=== PATIENT | male | born 1950 | race Caucasian/White ===

== ENCOUNTER 2018-04-13 10:15 | Emergency (ER) | payer MEDICARE, BC ==
[2018-04-13 10:35] VITALS: BP 150/64
--- NOTE | 2018-04-13 10:41 | UC ---
Abdominal Pain Male HPI - HPI Summary HPI Summary: 67 yo male presents with RUQ after eating for the past 5-6 months. He was seen by his PCP 2 weeks ago for this and PCP ordered a CT scan of chest, abd, and pelvis - which was normal per pt. He tells me that his pain began about 5-6 months ago and he hasn't wanted to eat much since due to pain after eating that will cause his stomach to ache all day long..mostly in the RUQ. He has never vomited due to this pain. He takes omeprazole daily, but notices no relief with this. He has a BM each day and is well formed without blood or dark stools. PMHx is positive for lung cancer in remission. Denies fever, chills, night sweats, SOB, chest pain, dysuria. - History of Current Complaint Chief Complaint: UCAbdominalPain Stated Complaint: ABD PAIN Time Seen by Provider: 04/13/18 10:41 Hx Obtained From: Patient Onset/Duration: Gradual Onset Severity Initially: Moderate Severity Currently: Moderate Pain Intensity: 7 Pain Scale Used: 0-10 Numeric - Allergies/Home Medications Allergies/Adverse Reactions: Allergies Allergy/AdvReac Type Severity Reaction Status Date / Time No Known Allergies Allergy Verified 04/13/18 10:36 Home Medications: Home Medications Folic Acid 1 mg PO DAILY 04/13/18 [History Confirmed 04/13/18] Omeprazole CAP* 20 mg PO DAILY 04/13/18 [History Confirmed 04/13/18] Xanax TAB* 0.5 mg PO DAILY 04/13/18 [History Confirmed 04/13/18] buPROPion TAB* [Wellbutrin TAB*] 300 mg PO DAILY 04/13/18 [History Confirmed ] PMH/Surg Hx/FS Hx/Imm Hx - Additional Past Medical History Additional PMH: Lung cancer GERD Psychological History: Anxiety - Surgical History Surgical History: Yes Surgery Procedure, Year, and Place: RIGHT LOBECTOMY, DRAINAGE OF INFECTION FROM RIGHT LUNG AND RIGHT LOWER QUADRANT - Social History Lives: With Family Alcohol Use: None Substance Use Type: None Smoking Status (MU): Former Smoker Review of Systems Constitutional: Negative Skin: Negative Respiratory: Negative Cardiovascular: Negative Gastrointestinal: Abdominal Pain Genitourinary: Negative Motor: Negative Neurovascular: Negative Musculoskeletal: Negative Neurological: Negative Psychological: Negative All Other Systems Reviewed And Are Negative: Yes Physical Exam - Summary Physical Exam Summary: GENERAL: NAD. WDWN. No pain distress. SKIN: No rashes, sores, lesions, or open wounds. NECK: Supple. Nontender. No lymphadenopathy. CHEST: CTAB. No r/r/w. No accessory muscle use. Breathing comfortably and in no distress. CV: RRR. Without m/r/g. No abdominal bruit appreciated. Pulses intact. Brisk cap refill. ABDOMEN: Soft. NTTP. Negative crow's sign. No distention or guarding. No organomegaly. No CVA tenderness. Bowel sounds present NEURO: Alert. CN II-XII grossly intact. PSYCH: Age appropriate behavior. Triage Information Reviewed: Yes Vital Signs: Initial Vital Signs Temp 97 F 04/13/18 10:31 Pulse 75 04/13/18 10:31 Resp 16 04/13/18 10:31 BP 150/64 04/13/18 10:31 Pulse Ox 99 04/13/18 10:31 Vital Signs Reviewed: Yes Abd Pain Male Course/Dx - Course Course Of Treatment: I reviewed pt's recent CT results and cholelithiasis was noted. I believe his RUQ pain after eating is related to this. Therefore I will refer him to GI for further testing and treatment. Pt was agreeable to this plan. - Differential Dx/Clinical Impression Provider Diagnoses: RUQ pain Discharge - Sign-Out/Discharge Documenting (check all that apply): Patient Departure - Discharge Plan Condition: Stable Disposition: HOME Patient Education Materials: Biliary Colic (ED), Gallstones (ED) Referrals: Israel Shay MD [Primary Care Provider] - Jose Box MD [Medical Doctor] - As Soon As Possible Additional Instructions: If you develop a fever, shortness of breath, chest pain, new or worsening symptoms - please call your PCP or go to the ED. Your blood pressure was high at todays visit. Please see your primary provider within 4 weeks for recheck and re-evaluation. 1) I suspect your right upper quadrant pain is due to your gallstones - please call Dr. Box at the number below to schedule a follow up appointment as soon as possible for further evaluation - Billing Disposition and Condition Condition: STABLE Disposition: Home Attestation Statement User Type: Provider - I was available for consult. This patient was seen by the DONIS. The patient was not presented to, seen by, or examined by me. -Terri
--- NOTE | 2018-04-13 10:47 | UC ---
Abdominal Pain Male HPI - History of Current Complaint Chief Complaint: UCAbdominalPain Stated Complaint: ABD PAIN Hx Obtained From: Patient Onset/Duration: Lasting Weeks - 2 weeks, Still Present Severity Initially: Moderate Severity Currently: Moderate Pain Intensity: 7 Pain Scale Used: 0-10 Numeric Character: Aching - Allergies/Home Medications Allergies/Adverse Reactions: Allergies Allergy/AdvReac Type Severity Reaction Status Date / Time No Known Allergies Allergy Verified 04/13/18 10:36 Home Medications: Home Medications Folic Acid 1 mg PO DAILY 04/13/18 [History Confirmed 04/13/18] Omeprazole CAP* 20 mg PO DAILY 04/13/18 [History Confirmed 04/13/18] Xanax TAB* 0.5 mg PO DAILY 04/13/18 [History Confirmed 04/13/18] buPROPion TAB* [Wellbutrin TAB*] 300 mg PO DAILY 04/13/18 [History Confirmed ] PMH/Surg Hx/FS Hx/Imm Hx Cancer History: Lung Cancer - R lung cancer - Surgical History Surgical History: Yes Surgery Procedure, Year, and Place: RIGHT LOBECTOMY, DRAINAGE OF INFECTION FROM RIGHT LUNG AND RIGHT LOWER QUADRANT - Social History Alcohol Use: None Substance Use Type: None Smoking Status (MU): Former Smoker Physical Exam Vital Signs: Initial Vital Signs Temp 97 F 04/13/18 10:31 Pulse 75 04/13/18 10:31 Resp 16 04/13/18 10:31 BP 150/64 04/13/18 10:31 Pulse Ox 99 04/13/18 10:31 Discharge - Discharge Plan Referrals: Israel Shay MD [Primary Care Provider] -
--- NOTE | 2018-04-14 10:37 | UC ---
- Progress Note Progress Note: PLS CALL PT AND ADVISE THAT HEP C TESTING IS NEGATIVE. - ANTOINETTE THOMAS MD Discharge - Sign-Out/Discharge Documenting (check all that apply): Post-Discharge Follow Up - Discharge Plan Condition: Stable Disposition: HOME Patient Education Materials: Biliary Colic (ED), Gallstones (ED) Referrals: Jose Box MD [Medical Doctor] - As Soon As Possible Israel Shay MD [Primary Care Provider] - Additional Instructions: If you develop a fever, shortness of breath, chest pain, new or worsening symptoms - please call your PCP or go to the ED. Your blood pressure was high at todays visit. Please see your primary provider within 4 weeks for recheck and re-evaluation. 1) I suspect your right upper quadrant pain is due to your gallstones - please call Dr. Box at the number below to schedule a follow up appointment as soon as possible for further evaluation - Billing Disposition and Condition Condition: STABLE Disposition: Home
== END 2018-04-13 10:55 | disposition home or self-care (01) ==
LOC: UCEAST 10:15
DX: R10.11 Right upper quadrant pain (principal); F41.9 Anxiety disorder, unspecified; K21.9 Gastro-esophageal reflux disease without esophagitis; Z79.899 Other long term (current) drug therapy; Z87.891 Personal history of nicotine dependence; N50.811 Right testicular pain; N50.89 Other specified disorders of the male genital organs; N43.2 Other hydrocele
CPT/HCPCS: 36415; 86803; 99211; G0463

== ENCOUNTER 2018-04-16 09:06 | Emergency (ER) | payer MEDICARE, BC ==
--- NOTE | 2018-04-16 10:04 | ED ---
Abdominal Pain/Male - HPI Summary HPI Summary: This is vira Valdez documenting for attending Charlotte John M.D. This patient is a 67 year old M presenting to [facility] with a chief complaint of suprapubic abd pain since the beginning of 03/2017, worse today. Two and one half weeks ago pt saw PCP Dr. Shay who did a CT chest/A/P (without contrast) (04/02/18) for PMHx lung CA (diagnosed years ago in [place], per pt) and significant unplanned weight loss. Pt went to urgent care 04/13/18 before he had received results of his CT abd/pelvis from Dr. Shay, and review of that CT by PELON Steward, showed gallstones and since pt was afebrile and his abd pain was controlled, pt was advised to follow up with Dr. Shay and surgery. Pt complains of RUQ pain at times as well, but suprapubic is the primary pain site today. Pt also complains of recent weight loss, paresthesias in arms and legs, buzzing BEARD (3 or 12/23, was 03/24), and worsening abd pain. PSHx: right lower and middle lobectomy 4 years ago, PMHx anxiety, HTN. Pt denies N/V. Pt does not have local oncologist; his oncologist is Dr. Rodrigues in [place]. 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 These testicular ultrasound results have not been able to be discussed with Dr. Shay in detail yet, as pt has not met with Dr. Shay since this was done. In room at time of evaluation, BP 97/61, 96% O2 sat, pulse 76. PSHx 10/2013 right pleural infection "1.5 quarts of infectious fluid removed, induced 2 day coma followed" per pt (admission in [place]). - History of Current Complaint Chief Complaint: EDAbdPelonin Stated Complaint: ABD PAIN Time Seen by Provider: 04/16/18 09:35 Hx Obtained From: Patient, Family/Hull Molder - pt's , Medical Records - CT abd pelvis 04/02/18 and testicular US 04/13/18 reports, and UC visit 04/13/18, Other: - Dr. Shay, who calls in, trying to reach pt, so he can schedule PET scan for pt. Onset/Duration: Gradual Onset, Lasting Weeks, Still Present, Worse Since - this am Timing: Constant, Lasting Weeks Severity Initially: Moderate Severity Currently: Moderate Pain Intensity: 5 Pain Scale Used: 0-10 Numeric Location: Discrete At: RUQ - intermittent, Suprapubic Radiates: No Character: Dull Aggravating Factor(s): Nothing Alleviating Factor(s): Nothing Associated Signs And Symptoms: Positive: Other - weight loss, paresthesia, "buzzing" BEARD. Negative: Fever, Nausea, Vomiting - Allergies/Home Medications Allergies/Adverse Reactions: Allergies Allergy/AdvReac Type Severity Reaction Status Date / Time No Known Allergies Allergy Verified 04/13/18 10:36 Home Medications: Home Medications Lisinopril TAB* [Prinivil TAB 10 MG*] 10 mg PO DAILY 04/16/18 [History Confirmed 04/16/18] Morphine Sulfate [Morphine Sulfate ER] 60 mg PO BID 04/16/18 [History Confirmed 04/16/18] Oxycodone TAB(NF) [Oxycodone HCl 10 MG] 10 mg PO TID PRN 04/16/18 [History Confirmed 04/16/18] PMH/Surg Hx/FS Hx/Imm Hx Previously Healthy: No - lung cancer Endocrine/Hematology History: Denies: Hx Diabetes Cardiovascular History: Reports: Hx Hypertension Respiratory History: Reports: Hx Lung Cancer, Other Respiratory Problems/ Disorders - s/p right lobectomy, drainage of right pleural infection History: Reports: Other Problems/Disorders - hydroceles, 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 Infectious Disease History: Yes Infectious Disease History: Denies: Traveled Outside the in Last 30 Days - Family History Known Family History: Positive: Other - Mother: breast cancer - Social History Lives: With Family Alcohol Use: None Substance Use Type: Reports: None Smoking Status (MU): Former Smoker Review of Systems Negative: Fever Cardiovascular: Negative Respiratory: Negative Positive: Abdominal Pain. Negative: Vomiting, Nausea Positive: no symptoms reported Skin: Negative Positive: Headache - "buzzing", Paresthesia - arms and legs Positive: Anxious - admits he is anxious and "can't ignore" his complex of symptoms All Other Systems Reviewed And Are Negative: Yes Physical Exam - Summary Physical Exam Summary: Appearance: Chronically ill-appearing, moderate pain distress due to BEARD and abd pain, well-nourished Skin: Warm, color reflects adequate perfusion, dry, right lower lung scar Head: Normal Head/Face inspection, atraumatic Eyes: Conjunctiva clear ENT: Normal inspection Neck: Supple, no nodes, no JVD Respiratory: decreased breath sounds throughout, no respiratory distress Cardio: RRR, No murmur, pulses normal, brisk capillary refill Abdomen: Soft, minimal suprapubic and RUQ tenderness, no guarding or tenderness , no masses. Bowel sounds: Present Rectal exam: Barbara as can marker: brown, soft stool, not impacted, stool sent for guaiac testing Musculoskeletal: Strength Intact/ROM intact, no calf tenderness, no edema. Psychological: talkative, states he is anxious Neuro: Alert, muscle tone normal, no focal deficit : Barbara as can marker, tech: firm and movable "pea-sized" mass, inferior to right testicle within scrotum, non-tender. Scrotum is not red or swollen. Triage Information Reviewed: Yes Vital Signs On Initial Exam: Initial Vitals Temp Pulse Resp BP Pulse Ox 98 F 88 18 124/70 100 04/16/18 09:13 04/16/18 09:13 04/16/18 09:13 04/16/18 09:13 04/16/18 09:13 Vital Signs Reviewed: Yes Diagnostics - Vital Signs Vital Signs Temp Pulse Resp BP Pulse Ox 04/16/18 09:13 98 F 88 18 124/70 100 - Laboratory Result Diagrams: 04/16/18 10:13 04/16/18 10:13 Lab Statement: Any lab studies that have been ordered have been reviewed, and results considered in the medical decision making process. - Radiology CXR Xray Interpretation: No Acute Changes Radiology Interpretation Completed By: Radiologist - No active cardiopulmonary disease. - CT A/P CT Interpretation Completed By: Radiologist - 1. CHOLELITHIASIS. THE INTRAHEPATIC BILIARY DILATATION NOTED ON THE PREVIOUS EXAMINATION IS NO LONGER EVIDENT. 2. ATHEROSCLEROSIS. 3. DIVERTICULOSIS. 4. MULTIPLE RENAL CYSTS. Dr. John has reviewed this report. - Ultrasound No standard instances Ultrasound Interpretation: Positive (See Comments) Ultrasound Interpretation Completed By: Radiologist - US GB: cholelithiasis without sonographic features of cholecystitis. - EKG 1019 Cardiac Rate: NL - 71 EKG Rhythm: Sinus Rhythm ST Segment: Normal Ectopy: None EKG Interpretation: nl QTc, nl AV IV CT, nl axis, not a STEMI EKG Comparison: No Significant Change - c/w 03/16/13, no acute changes Re-Evaluation - Re-Evaluation First Eval Re-Evaluation Time: 10:55 Change: Unchanged Comment: Nurse reports that pt states he took extra Lisinopril yesterday 04/15/18 because he had missed doses, BP remain 90-100 systolic. Third Eval Re-Evaluation Time: 12:45 Change: Unchanged Comment: PT left for CT. (note this is second eval, not third) Fourth Eval Re-Evaluation Time: 13:40 Change: Unchanged Comment: Note this is third eval, not second. Explained CT and GB ultrasound, and labs with pt and . Answered questions. Abdomen remains soft, nondistended, minimal diffuse tenderness. It is not a surgical abdomen. His resps are unlabored. Pt is alert and coherent. Abdominal Pain Fem Course/Dx - Course Course Of Treatment: 67 yo M with hx lung CA dx'd and treated in [place], presents to ED with acute and chronic abdominal pain. Evaluation in ED today shows: (+) CT abdomen and pelvis with oral and IV contrast: (compared with CT chest/abd/pelvis on 04/02/18 that was outpatient, without contrast). 1. CHOLELITHIASIS. THE INTRAHEPATIC BILIARY DILATATION NOTED ON THE PREVIOUS EXAMINATION. IS NO LONGER EVIDENT. 2. ATHEROSCLEROSIS. 3. DIVERTICULOSIS. 4. MULTIPLE RENAL CYSTS. (+) gallstones on US GB, without acute cholecystitis. (-) CXR. EKG nl sinus 71 BPM, nl EKG. Pt with elevated BUN, K + 5.1 (pt admits extra lisinopril past two days due to "missing some doses"), was hydrated in the ED. Care was discussed by phone with Dr. Shay, who is trying to reach pt to schedule a PET scan, based on the results of outpatient CT chest/abd/pelvis and testicular US that he had ordered. Dr. Shay will call pt later today, declines talking to pt while he is under stress in the ED. - Diagnoses Differential Diagnosis/HQI/PQRI: Bowel Obstruction, Constipation, Diverticulitis , Gall Bladder Disease, Ischemic Bowel, Pancreatitis, Prostatitis, Urinary Tract Infection, Other - metastatic cancer Provider Diagnoses: Abdominal pain, Cholelithiasis, Elevated BUN, Hyperkalemia, Scrotal mass - Provider Notifications Discussed Care Of Patient With: Israel Shay - provides background hx. He will schedule PET scan Time Discussed With Above Provider: 13:25 Instructed by Provider To: Have Pt Call For Appt. Discharge - Sign-Out/Discharge Documenting (check all that apply): Patient Departure - Discharge - Discharge Plan Condition: Stable Disposition: HOME Patient Education Materials: Gallstones (ED), Abdominal Pain (ED) Referrals: Israel Shay MD [Primary Care Provider] - 2 Days Additional Instructions: We have given you a copy of all of your labs and recent scans and ultrasounds. Bring these to Dr. Shay. At the time you are discharged the result of the test for hidden blood in your stool is still pending. Dr. Shay can check that result for you, or you can call the ER after 5pm today. We did not find any emergency condition that needs hospital admission or surgery at this time, but you do need further evaluation with the PET scan, and Dr. Shay will call you to schedule that. You do have gallstones, but your gallbladder is not inflamed at this time, so you do not need urgent surgery for that at this time. Your BUN (kidney function number) is elevated, and Dr. Shay will need to follow up on this also. Take all of your medications only as directed. Return to the emergency department for any changing or worsening symptoms. - Billing Disposition and Condition Condition: STABLE Disposition: Home
[2018-04-16] MEDS ORDERED: NS 0.9% 1000 ML* 2,000 ML IV ONE (10:07)
[2018-04-16 10:27] LABS: Urine Appearance Clear; Urine Blood Negative (Negative); Urine Color Yellow; Urine Ketones Negative (Negative); Urine Protein Negative (Negative); Urine Specific Gravity 1.019 (1.010-1.030); Urine Urobilinogen Negative (Negative)
[2018-04-16 10:27] LABS: ABS Basophils 0 10^3/ul (0-0.2); ABS Eosinophils 0 10^3/ul (0-0.6); ABS Lymphocytes 0.8 10^3/ul (1.0-4.8); ABS Monocytes 0.4 10^3/ul (0-0.8); ABS Neutrophils 7.4 10^3/ul (1.5-7.7); ABS Nucleated RBC 0 10^3/ul; Eosinophil % 0.5 % (0-6); Hematocrit 38 % (42-52); Hemoglobin 12.6 g/dl (14.0-18.0); Lymphocyte % 9.1 % (25-47); Mean Corpuscular HGB Conc 34 g/dl (31-36); Mean Corpuscular Hemoglobin 30 pg (27-31); Mean Corpuscular Volume 88 fL (80-94); Mean Platelet Volume 8.9 um3 (7.4-10.4); Nucleated Red Blood Cells % 0; Platelet Count 237 10^3/ul (150-450); Red Blood Count 4.25 10^6/ul (4.00-5.40); Red Cell Distribution Width 14 % (10.5-15); White Blood Count 8.7 10^3/ul (3.5-10.8)
[2018-04-16 10:47] LABS: INR 0.87 (0.77-1.02)
[2018-04-16 10:51] LABS: EGFR Non-African American 67.9 (>60)
--- NOTE | 2018-04-16 11:13 | RAD ---
HISTORY: gallstones on CT 04/02/18, RUQ pain,suprapubic pain COMPARISONS: CT dated April 02, 2018 TECHNIQUE: Multiple transverse and longitudinal ultrasound images were obtained of the right upper quadrant of the abdomen using grayscale and color Doppler imaging. FINDINGS: The study is limited by patient bowel gas. LIVER: The liver is normal in shape, size, contour, and echogenicity. There are no focal parenchymal masses. There is normal hepatopedal flow of the portal vein on Doppler imaging. BILIARY TREE: There is no intrahepatic or extrahepatic biliary dilatation. The common duct measures 0.5 cm. GALLBLADDER: The gallbladder is distended. Multiple shadowing echogenic foci consistent with gallstones are noted. There is no gallbladder wall thickening, pericholecystic fluid, or sonographic Pitt sign. PANCREAS: The pancreas is obscured by overlying bowel gas. RIGHT KIDNEY: There are multiple simple right renal cysts measuring up to 4.4 cm in size. There is no hydronephrosis or nephrolithiasis. The right kidney measures 13.8 x 5.2 x 6.1 cm. AORTA AND IVC: The aorta and IVC are unremarkable. FLUID: There are no pleural effusions. There is no free fluid within the hepatorenal recess. OTHER FINDINGS: None. IMPRESSION: CHOLELITHIASIS WITHOUT SONOGRAPHIC FEATURES OF ACUTE CHOLECYSTITIS.
--- NOTE | 2018-04-16 11:23 | RAD ---
HISTORY: abd pain, lung CA COMPARISONS: April 05, 2013, CT dated April 02, 2018 VIEWS: 1: frontal portable view of the chest at 11:08 AM FINDINGS: LINES AND TUBES: A right-sided chest port is noted. CARDIOMEDIASTINAL SILHOUETTE: The cardiomediastinal silhouette is normal for portable technique. PLEURA: There is elevation of the right hemidiaphragm. LUNG PARENCHYMA: The lungs are clear. ABDOMEN: The upper abdomen is clear. There is no subphrenic gas. BONES AND SOFT TISSUES: There is postsurgical change to the right hemithorax. IMPRESSION: NO ACTIVE CARDIOPULMONARY DISEASE.
[2018-04-16] MEDS ORDERED: Iohexol 300* (CONTRAST) 10 ML SDV IV ONE (11:28)
--- NOTE | 2018-04-16 13:11 | RAD ---
CLINICAL HISTORY: suprapubic and RUQ pain, hx gallstones COMPARISON: April 02, 2018, ultrasound dated April 16, 2018 TECHNIQUE: Multiple contiguous axial CT scans were obtained of the abdomen and pelvis after the administration of intravenous contrast. Coronal and sagittal multiplanar reformations are submitted for review. Oral contrast was administered. Delayed images were obtained through the abdomen. FINDINGS: LUNG BASES: The lung bases are clear. LIVER: The liver is normal in shape, size, contour, and attenuation. BILE DUCTS: There is no intrahepatic or extrahepatic biliary dilatation. GALLBLADDER: Small gallstones are noted. There is no pericholecystic inflammatory change. PANCREAS: The pancreas is normal, without mass or ductal dilatation. SPLEEN: Normal in size and appearance. UPPER GI TRACT: Evaluation of the gastrointestinal tract is limited by incomplete gastric distention. The upper GI tract is unremarkable. SMALL BOWEL AND MESENTERY: The small bowel is normal in contour, course, and caliber. There is no obstruction or dilatation. COLON: There are multiple diverticula of the descending and sigmoid colon. There is no pericolonic inflammatory change. ADRENALS: Normal bilaterally. KIDNEYS: Again noted are renal cysts bilaterally. These are stable in the previous examination. BLADDER: The bladder is smooth in contour. PELVIC ORGANS: The prostate is mildly enlarged. The seminal vesicles are symmetric. AORTA: There is calcific atherosclerotic disease of the abdominal aorta and its branches, without aneurysmal dilatation IVC: Unremarkable LYMPH NODES: There is no lymphadenopathy by size criteria. ABDOMINAL WALL: There is no evidence for abdominal wall hernia. BONES AND SOFT TISSUES: There are mild diffuse degenerative changes. OTHER: None IMPRESSION: 1. CHOLELITHIASIS. THE INTRAHEPATIC BILIARY DILATATION NOTED ON THE PREVIOUS EXAMINATION IS NO LONGER EVIDENT. 2. ATHEROSCLEROSIS. 3. DIVERTICULOSIS. 4. MULTIPLE RENAL CYSTS.
[2018-04-16 13:40] VITALS: BP 119/65
== END 2018-04-16 13:48 | disposition home or self-care (01) ==
LOC: ED 09:06
DX: K80.20 Calculus of gallbladder without cholecystitis without obstruction (principal); E87.5 Hyperkalemia; R79.89 Other specified abnormal findings of blood chemistry; N28.1 Cyst of kidney, acquired; I70.0 Atherosclerosis of aorta; K57.30 Diverticulosis of large intestine without perforation or abscess without bleeding; I10 Essential (primary) hypertension; F41.9 Anxiety disorder, unspecified; Z79.899 Other long term (current) drug therapy; Z87.438 Personal history of other diseases of male genital organs; Z85.118 Personal history of other malignant neoplasm of bronchus and lung; Z90.2 Acquired absence of lung [part of]; Z87.891 Personal history of nicotine dependence
CPT/HCPCS: 36415; 71045; 74177; 76705; 80053; 81003; 82140; 82150; 82272; 82550; 83605; 83690; 83735; 83880; 84484; 85025; 85610; 85730; 86140; 93005; 96360; 96361; 99283; Q9967

== ENCOUNTER 2018-04-18 11:39 | Emergency (ER) | payer MEDICARE, BC ==
--- NOTE | 2018-04-18 11:53 | ED ---
Abdominal Pain/Male - HPI Summary HPI Summary: A 67 y/o M presents to ED with c/o acute on chronic, diffuse abd pain onset one month ago and and worsening. Associated sx: diarrhea onset this AM but constipated prior to that for three days; BEARD for few weeks that "buzzes." Known dx: gallstones, enlarged nodule in lung. Eats some solid foods, and 6-pack Boost daily. Lost 20 lbs in November, has been fluctuating ever since. Pt had CT with contrast three days ago, says he is scheduled for a PET scan. PMHx: Lung CA with surgery. Former smoker, vapes now. This is scribe, Alondra Dior, documenting for attending Dr. Nura Hernandez MD. - History of Current Complaint Stated Complaint: ABD PAIN,TINGLING ALL OVER,HEADACHE Time Seen by Provider: 04/18/18 11:42 Hx Obtained From: Patient, Medical Records Onset/Duration: Lasting Weeks, Still Present Timing: Constant Severity Currently: Mild Pain Intensity: 3 Pain Scale Used: 0-10 Numeric Associated Signs And Symptoms: Positive: Diarrhea - this AM, Other - constipation 3 days; BEARD - Allergies/Home Medications Allergies/Adverse Reactions: Allergies Allergy/AdvReac Type Severity Reaction Status Date / Time No Known Allergies Allergy Verified 04/13/18 10:36 PMH/Surg Hx/FS Hx/Imm Hx Previously Healthy: No Endocrine/Hematology History: Denies: Hx Diabetes Cardiovascular History: Reports: Hx Hypertension, Other Cardiovascular Problems/ Disorders - HTN Respiratory History: Reports: Hx Chronic Obstructive Pulmonary Disease (COPD), Hx Lung Cancer, Other Respiratory Problems/Disorders - PT STATES HX OF GROWTHS IN RIGHT LUNG History: Reports: Other Problems/Disorders - hydrocoel right testicle Denies: Hx Renal Disease Sensory History: Denies: Hx Legally Blind, Hx Deafness Opthamlomology History: Denies: Hx Legally Blind - Cancer History Cancer Type, Location and Year: RIGHT LUNG CANCER - Surgical History Surgery Procedure, Year, and Place: RIGHT LOBECTOMY, DRAINAGE OF INFECTION FROM RIGHT LUNG AND RIGHT LOWER QUADRANT Infectious Disease History: No Infectious Disease History: Denies: Traveled Outside the [place] in Last 30 Days - Family History Known Family History: Positive: Other - Mother: breast cancer - Social History Lives: With Family Alcohol Use: None Alcohol Amount: 4 years sober Substance Use Type: Reports: None Hx Tobacco Use: Yes Smoking Status (MU): Former Smoker Review of Systems Negative: Fever Positive: Abdominal Pain, Diarrhea, Other - constipation Positive: Headache All Other Systems Reviewed And Are Negative: Yes Physical Exam - Summary Physical Exam Summary: Appearance: Well appearing, no pain distress Skin: warm, dry, reflects adequate perfusion Head/face: normal Eyes: EOMI, ROSENDO ENT: normal, moist mucous membranes Neck: supple, non-tender Respiratory: CTA, breath sounds present Cardiovascular: RRR, pulses symmetrical Abdomen: non-tender, soft Bowel Sounds: present Musculoskeletal: normal, strength/ROM intact Neuro: normal, sensory motor intact, A&Ox3 Triage Information Reviewed: Yes Vital Signs On Initial Exam: Initial Vitals Temp Pulse Resp BP Pulse Ox 99.3 F 78 16 175/87 97 04/18/18 11:41 04/18/18 11:41 04/18/18 11:41 04/18/18 11:41 04/18/18 11:41 Vital Signs Reviewed: Yes Diagnostics - Vital Signs Vital Signs Temp Pulse Resp BP Pulse Ox 04/18/18 11:41 99.3 F 78 16 175/87 97 - Laboratory Result Diagrams: 04/18/18 12:07 04/18/18 12:07 Lab Statement: Any lab studies that have been ordered have been reviewed, and results considered in the medical decision making process. Re-Evaluation - Re-Evaluation 1 Re-Evaluation Time: 13:31 Change: Improved Comment: Discussing lab results with pt. Plan to D/C. Pt voiced understanding. Abdominal Pain Fem Course/Dx - Course Course Of Treatment: Reviewed past CT and labs, both are which are nml. She is well-known to the ER having just had a CT scan here. He is continuing to have discomfort but his abdomen is soft, nontender with normal bowel sounds. I reviewed his CT scan which shows no constipation despite his chronic opiate use. I suggested a possible outpatient HIDA scan and he does have an outpatient PET scan pending given his cancer history. He also will do a lamination diets and will follow up closely with his primary care physician. - Diagnoses Differential Diagnosis/HQI/PQRI: Other - Functional gallbladder issue, food intolerances, food allergy, poor motility. Provider Diagnoses: Chronic abdominal pain Discharge - Sign-Out/Discharge Documenting (check all that apply): Patient Departure - D/C - Discharge Plan Condition: Improved Disposition: HOME Prescriptions: Metoclopramide HCl 10 mg PO TID PRN #40 tablet PRN Reason: nausea/abdominal pain Pantoprazole Sodium [Protonix] 40 mg PO DAILY #30 granpkt. Sucralfate [Carafate] 1 gm PO TID #60 tablet Patient Education Materials: Chronic Abdominal Pain (ED) Referrals: Israel Shay MD [Primary Care Provider] - Additional Instructions: Follow-up with your doctor on Friday. Have the PET scan as previously ordered. Your doctor may also consider a HIDA scan. Return if worse, unable to keep down food or drink, new symptoms or other concerns. - Billing Disposition and Condition Condition: IMPROVED Disposition: Home
[2018-04-18] MEDS ORDERED: Ondansetron INJ* 2 MG/ML VIAL IV ONE (11:58)
[2018-04-18] MEDS ORDERED: diPHENhydraMINE IV* 50 MG/ML 1 ml VIAL (BENADRYL) IV ONE (11:58)
[2018-04-18] MEDS ORDERED: NS 0.9% 1000 ML* 1,000 ML IV ONE (11:58)
[2018-04-18] MEDS ORDERED: Metoclopramide IV* 5 MG/ML 2 ML VIAL IV ONE (11:58)
[2018-04-18 12:16] LABS: ABS Basophils 0.1 10^3/ul (0-0.2); ABS Eosinophils 0.1 10^3/ul (0-0.6); ABS Lymphocytes 1.4 10^3/ul (1.0-4.8); ABS Monocytes 0.5 10^3/ul (0-0.8); ABS Neutrophils 4.7 10^3/ul (1.5-7.7); ABS Nucleated RBC 0 10^3/ul; Eosinophil % 2.1 % (0-6); Hematocrit 36 % (42-52); Hemoglobin 12.2 g/dl (14.0-18.0); Lymphocyte % 20.8 % (25-47); Mean Corpuscular HGB Conc 34 g/dl (31-36); Mean Corpuscular Hemoglobin 30 pg (27-31); Mean Corpuscular Volume 88 fL (80-94); Mean Platelet Volume 8.7 um3 (7.4-10.4); Nucleated Red Blood Cells % 0; Platelet Count 248 10^3/ul (150-450); Red Blood Count 4.12 10^6/ul (4.00-5.40); Red Cell Distribution Width 14 % (10.5-15); White Blood Count 6.9 10^3/ul (3.5-10.8)
[2018-04-18 12:30] LABS: EGFR Non-African American 70.1 (>60)
[2018-04-18 14:02] VITALS: BP 121/71
== END 2018-04-18 13:56 | disposition home or self-care (01) ==
LOC: ED 11:39
DX: R10.9 Unspecified abdominal pain (principal); G89.29 Other chronic pain; R19.7 Diarrhea, unspecified; Z87.891 Personal history of nicotine dependence; K59.00 Constipation, unspecified; R51 Headache
CPT/HCPCS: 36415; 80053; 83605; 83690; 84145; 84443; 85025; 86140; 99283; J1200; J2405; J2765

== ENCOUNTER 2019-10-23 15:28 | Emergency (ER) | payer MEDICARE, BC ==
[2019-10-23] MEDS ORDERED: NS 0.9% 1000 ML** 1,000 ML IV ONE ×2 (15:58→17:17)
[2019-10-23 16:41] LABS: ABS Eosinophils 0.1 10^3/ul (0-0.6); ABS Lymphocytes 1.1 10^3/ul (1.0-4.8); ABS Monocytes 1.1 10^3/ul (0-0.8); ABS Neutrophils 11.1 10^3/ul (1.5-7.7); Eosinophil % 0.4 %; Hematocrit 39 % (42-52); Hemoglobin 13.3 g/dL (14.0-18.0); Lymphocyte % 7.9 %; Mean Corpuscular HGB Conc 34 g/dL (31-36); Mean Corpuscular Hemoglobin 30 pg (27-31); Mean Corpuscular Volume 86 fL (80-94); Mean Platelet Volume 8.4 fL (7.4-10.4); Platelet Count 275 10^3/uL (150-450); Red Cell Distribution Width 15 % (10-15); White Blood Count 13.4 10^3/uL (3.5-10.8)
[2019-10-23 16:54] LABS: INR 0.92 (0.82-1.09)
[2019-10-23 17:05] LABS: ALT 88 U/L (7-52); AST 66 U/L (13-39); Albumin/Globulin Ratio 1.4 (1-3); Alkaline Phosphatase 59 U/L (34-104); Anion Gap 6 mmol/L (2-11); BUN/Creatinine Ratio 34.5 (8-20); Blood Urea Nitrogen 49 mg/dL (6-24); CO2 Carbon Dioxide 30 mmol/L (22-32); Calcium 10.1 mg/dL (8.6-10.3); Chloride 106 mmol/L (101-111); EGFR African American 60.4 (>60); EGFR Non-African American 49.9 (>60); Globulin 2.9 g/dL (2-4); Glucose 96 mg/dL (70-100); Magnesium 2.4 mg/dL (1.9-2.7); Potassium 4.2 mmol/L (3.5-5.0); Sodium 142 mmol/L (135-145); Total Protein 6.9 g/dL (6.4-8.9)
[2019-10-23 17:22] LABS: Alcohol < 10 mg/dL (<10)
--- NOTE | 2019-10-23 17:30 | ED ---
Adult Trauma - HPI Summary HPI Summary: This patient is a 68-year-old male history of alcohol abuse and alcoholism as well as newly diagnosed lung cancer presenting to the ED after a fall 2 days ago. He is currently living with his sister. Sister is at bedside. Sister states she was not present during this time and typically will keep a close eye on the patient due to his drinking. He recently started drinking again after over 5 months sobriety. Prior to that he had several years of sobriety. He is unsure how much he drank on the day of his fall. He states he recalls very little of that day but does recall falling down a few steps, landing on his left hip and rib area. He denies any pain to the right side and is only endorsing pain to the left ribs. Symptoms are worse with taking deep breaths, better with rest. He has been using Ambien at night to help him sleep due to the pain. He states he only has pain when taking a deep breath due to the pain , however continues to feel like he is able to take a deep breath of air. He denies any hemoptysis, hematemesis, melena, urinary symptoms or gross hematuria. He denies any flank pain bilaterally. He denies any pain to the posterior cervical, thoracic and lumbar spine. Denies any headache, but unsure if he hit his head. Unsure if he had any positive LOC. She has not been sick recently, however has been stating he is unsteady on his feet d/t his pain. Denies any dizziness. Denies visual changes. Patient states he will smoke cigarettes only when he drinks. Denies any drug use. He states he has not drank in the past day and a half since his fall. He does recall able to stand up after the fall and was able to place himself on the couch. He has remained ambulatory over the past 2 days. - History of Current Complaint Chief Complaint: EDFall Stated Complaint: FALL PER PT Time Seen by Provider: 10/23/19 15:44 Hx Obtained From: Patient, Family/Food Analyst Ambulatory at the Scene: Yes Loss of Consciousness: unsure Force: Medium Onset/Duration: Started Days Ago, Traumatic Onset of Pain: Immediate Onset Severity: Moderate Current Severity: Moderate Pain Intensity: 3 Pain Scale Used: 0-10 Numeric Location: Head, Chest, Abdomen/Pelvis Character: Aching Aggravating Factor(s): Movement, Deep Breaths, Palpation, Cough Alleviating Factor(s): Rest, Shallowing Breathing Associated Signs & Symptoms: Positive: Loss of Consciousness - Allergy/Home Medications Allergies/Adverse Reactions: Allergies Allergy/AdvReac Type Severity Reaction Status Date / Time No Known Allergies Allergy Verified 10/23/19 15:34 PMH/Surg Hx/FS Hx/Imm Hx Previously Healthy: Yes Endocrine/Hematology History: Denies: Hx Diabetes Cardiovascular History: Reports: Hx Hypertension, Other Cardiovascular Problems/ Disorders - HTN Respiratory History: Reports: Hx Chronic Obstructive Pulmonary Disease (COPD), Hx Lung Cancer, Other Respiratory Problems/Disorders - PT STATES HX OF GROWTHS IN RIGHT LUNG History: Reports: Other Problems/Disorders - hydrocoel right testicle Denies: Hx Renal Disease Sensory History: Denies: Hx Legally Blind, Hx Deafness Opthamlomology History: Denies: Hx Legally Blind - Cancer History Cancer Type, Location and Year: RIGHT LUNG CANCER - Surgical History Surgery Procedure, Year, and Place: RIGHT LOBECTOMY, DRAINAGE OF INFECTION FROM RIGHT LUNG AND RIGHT LOWER QUADRANT - Immunization History Hx Pertussis Vaccination: No Immunizations Up to Date: Yes Infectious Disease History: No Infectious Disease History: Denies: Traveled Outside the [place] in Last 30 Days - Family History Known Family History: Positive: Other - Mother: breast cancer - Social History Occupation: Unemployed Lives: With Family Alcohol Use: Rare Alcohol Amount: hx ETOH, "fell off wagon on " Hx Substance Use: No Substance Use Type: Reports: None Hx Tobacco Use: Yes Smoking Status (MU): Former Smoker Review of Systems Negative: Fever, Chills, Fatigue, Skin Diaphoresis Negative: Palpitations, Chest Pain Negative: Shortness Of Breath, Cough Positive: Abdominal Pain. Negative: Vomiting, Diarrhea, Nausea Positive: see HPI, flank pain Positive: Arthralgia - left rib pain Positive: Bruising - left flank/left mid back pain Neurological: Negative All Other Systems Reviewed And Are Negative: Yes Physical Exam - Summary Physical Exam Summary: GENERAL: Pt appears in NAD. SKIN: Warm and well perfused. Discoloration and ecchymosis to the posterior lower flank without ecchymosis otherwise throughout. HEAD: Atraumatic, normocephalic without edema, discoloration or evidence of trauma. Facial bones without deformities or tenderness. EYES: PERRL. Scleral icterus present. Conjunctival injection. Extraocular muscles intact without nystagmus or diplopia. No proptosis or enophthalmos. EARS: Normal appearing pinnae. No hemotympanum. NOSE: No discharge, tenderness, laxity. No nasal septal hematoma. MOUTH: No malocclusion or trismus. Moist mucus membranes without blood. Posterior pharynx without erythema or exudate. NECK: Trachea midline. No discolorations or edema. CV: Regular rate and rhythm, Normal s1 and s2. No murmurs, rubs, or gallops. PV: Radial pulses 2+ bilaterally and symmetric. Dorsalis pedis pulses 2+ bilaterally and symmetric. 2+ capillary refill. No extremity edema. CHEST: No abrasions or ecchymosis. Chest symmetric with respirations. No chest wall tenderness. No crepitus. No step offs. Lungs are clear to auscultation bilaterally. No rales, rhonchi, wheezing or stridor. Pain over the L rib cage throughout. ABDOMEN: No ecchymosis or abrasions. Soft, nondistended, nontender. Bowel tones normoactive. No masses or organomegaly. No pain to the LUQ to the splenic region. BACK: Spine without bony tenderness, no step offs. PELVIC: Pelvis stable, nontender to lateral compression and palpation of symphysis pubis. Pt able to ambulate. MSK: No gross deformities or discolorations or lesions. Tolerates full range of motion of extremities without tenderness. NEURO: Alert and oriented to person, place, and time. GCS 15. CN II-XII intact. Sensation grossly intact. Strength 5/5 in bilateral UE and LE. Triage Information Reviewed: Yes Vital Signs On Initial Exam: Initial Vitals Temp Pulse Resp BP Pulse Ox 98.6 F 99 19 103/69 97 10/23/19 15:30 10/23/19 15:30 10/23/19 15:30 10/23/19 15:30 10/23/19 15:30 Vital Signs Reviewed: Yes Appearance: Positive: Well-Appearing, No Pain Distress, Well-Nourished Skin: Positive: Other - ecchymosis to the posterior L side/flank area Head/Face: Positive: Normal Head/Face Inspection Eyes: Positive: EOMI, ROSENDO, Other: - scleral icterus Neck: Positive: Supple, No Lymphadenopathy Respiratory/Lung Sounds: Positive: Clear to Auscultation, Breath Sounds Present Cardiovascular: Positive: RRR, Pulses are Symmetrical in both Upper and Lower Extremities Abdomen Description: Positive: Other: - nontender throughout the upper and lower quadrants Musculoskeletal: Positive: Normal, Strength/ROM Intact Neurological: Positive: Speech Normal Psychiatric: Positive: Affect/Mood Appropriate, Patient Uncooperative for Exam AVPU Assessment: Alert Procedures - Sedation Patient Received Moderate/Deep Sedation with Procedure: No Diagnostics - Vital Signs Vital Signs Temp Pulse Resp BP Pulse Ox 10/23/19 16:41 89 96/61 95 10/23/19 16:11 90 115/69 96 10/23/19 16:00 93 98 10/23/19 15:43 99 125/97 87 10/23/19 15:30 98.6 F 99 19 103/69 97 - Laboratory Lab Results: Lab Results 10/23/19 10/23/19 10/23/19 Range/Units 16:32 16:32 16:32 WBC 13.4 H (3.5-10.8) 10^3/uL RBC 4.50 (4.18-5.48) 10^6 /uL Hgb 13.3 L (14.0-18.0) g/dL Hct 39 L (42-52) % MCV 86 (80-94) fL MCH 30 (27-31) pg MCHC 34 (31-36) g/dL RDW 15 (10-15) % Plt Count 275 (150-450) 10^3/uL MPV 8.4 (7.4-10.4) fL Neut % (Auto) 82.8 % Lymph % (Auto) 7.9 % [place] % (Auto) 8.5 % Eos % (Auto) 0.4 % Baso % (Auto) 0.4 % Absolute Neuts (auto) 11.1 H (1.5-7.7) 10^3/ul Absolute Lymphs (auto) 1.1 (1.0-4.8) 10^3/ul Absolute Monos (auto) 1.1 H (0-0.8) 10^3/ul Absolute Eos (auto) 0.1 (0-0.6) 10^3/ul Absolute Basos (auto) 0.0 (0-0.2) 10^3/ul Absolute Nucleated RBC 0.0 10^3/ul Nucleated RBC % 0.0 INR (Anticoag Therapy) (0.82-1.09) Sodium 142 (135-145) mmol/L Potassium 4.2 (3.5-5.0) mmol/L Chloride 106 (101-111) mmol/L Carbon Dioxide 30 (22-32) mmol/L Anion Gap 6 (2-11) mmol/L BUN 49 H (6-24) mg/dL Creatinine 1.42 H (0.67-1.17) mg/dL Est GFR ( Amer) 60.4 (>60) Est GFR (Non-Af Amer) 49.9 (>60) BUN/Creatinine Ratio 34.5 H (8-20) Glucose 96 (70-100) mg/dL Lactic Acid 1.2 (0.5-2.0) mmol/L Calcium 10.1 (8.6-10.3) mg/dL Magnesium 2.4 (1.9-2.7) mg/dL Total Bilirubin 0.70 (0.2-1.0) mg/dL AST 66 H (13-39) U/L ALT 88 H (7-52) U/L Alkaline Phosphatase 59 (34-104) U/L Total Protein 6.9 (6.4-8.9) g/dL Albumin 4.0 (3.2-5.2) g/dL Globulin 2.9 (2-4) g/dL Albumin/Globulin Ratio 1.4 (1-3) Serum Alcohol < 10 (<10) mg/dL 10/23/19 Range/Units 16:32 WBC (3.5-10.8) 10^3/uL RBC (4.18-5.48) 10^6 /uL Hgb (14.0-18.0) g/dL Hct (42-52) % MCV (80-94) fL MCH (27-31) pg MCHC (31-36) g/dL RDW (10-15) % Plt Count (150-450) 10^3/uL MPV (7.4-10.4) fL Neut % (Auto) % Lymph % (Auto) % [place] % (Auto) % Eos % (Auto) % Baso % (Auto) % Absolute Neuts (auto) (1.5-7.7) 10^3/ul Absolute Lymphs (auto) (1.0-4.8) 10^3/ul Absolute Monos (auto) (0-0.8) 10^3/ul Absolute Eos (auto) (0-0.6) 10^3/ul Absolute Basos (auto) (0-0.2) 10^3/ul Absolute Nucleated RBC 10^3/ul Nucleated RBC % INR (Anticoag Therapy) 0.92 (0.82-1.09) Sodium (135-145) mmol/L Potassium (3.5-5.0) mmol/L Chloride (101-111) mmol/L Carbon Dioxide (22-32) mmol/L Anion Gap (2-11) mmol/L BUN (6-24) mg/dL Creatinine (0.67-1.17) mg/dL Est GFR ( Amer) (>60) Est GFR (Non-Af Amer) (>60) BUN/Creatinine Ratio (8-20) Glucose (70-100) mg/dL Lactic Acid (0.5-2.0) mmol/L Calcium (8.6-10.3) mg/dL Magnesium (1.9-2.7) mg/dL Total Bilirubin (0.2-1.0) mg/dL AST (13-39) U/L ALT (7-52) U/L Alkaline Phosphatase (34-104) U/L Total Protein (6.4-8.9) g/dL Albumin (3.2-5.2) g/dL Globulin (2-4) g/dL Albumin/Globulin Ratio (1-3) Serum Alcohol (<10) mg/dL Result Diagrams: 10/23/19 16:32 10/23/19 16:32 Lab Statement: Any lab studies that have been ordered have been reviewed, and results considered in the medical decision making process. Adult Trauma Course/Dx - Course Course Of Treatment: This patient is evaluated for trauma. Patient is neurologically intact. Alert and oriented 3. Ecchymosis noted to the posterior flank area. No tenderness throughout the abdomen. Endorses severe pain to the L rib cage without pain to palpation or pressure to the chest wall. Lungs CTA. RRR. VS stable. CT brain, cervical, thoracic and lumbar spine. CT chest/abdomen/pelvis obtained. These are pending. Patient will be signed out to [facility] pending trauma workup. Pt declining any pain medications. He is given 2L fluids. - Diagnoses Differential Diagnosis/HQI/PQRI: Positive: Abrasion(s), Contusion(s), Fracture, Laceration(s) Provider Diagnoses: Trauma, Fall Images - Images Full Body (No Head): 1 - ecchymosis with small abrasion Discharge ED - Sign-Out/Discharge Documenting (check all that apply): Sign-Out Patient Signing out patient TO: Telma Marin - Discharge Plan Condition: Fair Referrals: Israel Shay MD [Primary Care Provider] - - Billing Disposition and Condition Condition: FAIR
[2019-10-23] MEDS ORDERED: Iodixanol 320 (CONTRAST) 100 ML SDV IV ONE (18:00)
[2019-10-23] MEDS ORDERED: HYDROcodone/ACETAMIN 5-325 MG* 1 TAB PO ONE (19:23)
--- NOTE | 2019-10-23 19:24 | ED ---
Course/Dx - Course Course Of Treatment: This patient is evaluated for trauma. Patient is neurologically intact. Alert and oriented 3. Ecchymosis noted to the posterior flank area. No tenderness throughout the abdomen. Endorses severe pain to the L rib cage without pain to palpation or pressure to the chest wall. Lungs CTA. RRR. VS stable. He is given 2L fluids. CT brain normal. CT neck , thoracic and lumbar no fracture. CT chest/abd shows ribs fracture 10-11. gave short course of pain medication. patient understand and agrees with plan. - Diagnoses Provider Diagnoses: Trauma, Fall, Rib fracture Discharge ED - Sign-Out/Discharge Documenting (check all that apply): Patient Departure, Receiving Sign-Out Receiving patient FROM: Veronica Miller - Discharge Plan Condition: Fair Disposition: HOME Prescriptions: HYDROcodone/ACETAMIN 5-325 MG* [[place] 5-325 TAB*] 1 tab PO Q6H PRN #16 tab MDD 4 PRN Reason: Pain - Severe Patient Education Materials: Rib Fracture (ED) Referrals: Israel Shay MD [Primary Care Provider] - Additional Instructions: Take deep breath throughout the day Take Ibuprofen or Tylenol for pain every 6 hours, use norco every 6 hours for pain Follow up with primary care physician within 5 days Return to ED if develop new productive cough, fever, or any new or worsening symptoms - Billing Disposition and Condition Condition: FAIR Disposition: Home
[2019-10-23 19:48] VITALS: BP 159/77
== END 2019-10-23 19:48 | disposition home or self-care (01) ==
LOC: ED 15:28
DX: S22.42XA Multiple fractures of ribs, left side, initial encounter for closed fracture (principal); J98.11 Atelectasis; W10.9XXA Fall (on) (from) unspecified stairs and steps, initial encounter; Y92.009 Unspecified place in unspecified non-institutional (private) residence as the place of occurrence of the external cause; C34.91 Malignant neoplasm of unspecified part of right bronchus or lung; I10 Essential (primary) hypertension; J44.9 Chronic obstructive pulmonary disease, unspecified; F17.210 Nicotine dependence, cigarettes, uncomplicated
CPT/HCPCS: 36415; 70450; 71260; 72125; 72128; 72131; 74177; 80053; 80320; 83605; 83735; 85025; 85610; 96360; 96361; 99283; G0480; Q9967

== ENCOUNTER 2020-09-21 16:41 | Inpatient (IN) ==
[2020-09-21 17:45] LABS: ABS Lymphocytes 1.2 10^3/ul (1.0-4.8); ABS Monocytes 0.7 10^3/ul (0-0.8); ABS Neutrophils 13.5 10^3/ul (1.5-7.7); Hematocrit 44 % (42-52); Lymphocyte % 7.9 %; Mean Corpuscular HGB Conc 34 g/dL (31-36); Mean Corpuscular Hemoglobin 32 pg (27-31); Mean Corpuscular Volume 94 fL (80-94); Mean Platelet Volume 8.4 fL (7.4-10.4); Platelet Count 330 10^3/uL (150-450); Red Cell Distribution Width 15 % (10-15); White Blood Count 15.5 10^3/uL (3.5-10.8)
[2020-09-21 18:02] LABS: ALT 49 U/L (7-52); AST 61 U/L (13-39); Albumin 3.9 g/dL (3.2-5.2); Albumin/Globulin Ratio 1.3 (1-3); Alkaline Phosphatase 125 U/L (34-104); Anion Gap 16 mmol/L (2-11); BUN/Creatinine Ratio 19.7 (8-20); Blood Urea Nitrogen 28 mg/dL (6-24); CO2 Carbon Dioxide 22 mmol/L (22-32); Calcium 9.5 mg/dL (8.6-10.3); Chloride 105 mmol/L (101-111); EGFR African American 60.2 (>60); EGFR Non-African American 49.7 (>60); Globulin 2.9 g/dL (2-4); Glucose 83 mg/dL (70-100); Potassium 4.4 mmol/L (3.5-5.0); Sodium 143 mmol/L (135-145); Total Protein 6.8 g/dL (6.4-8.9)
[2020-09-21] MEDS ORDERED: Thiamine 100 MG/ML 2 ml VIAL 100 MG, Folic Acid 1 MG, Multiple Vitamin IV ADULT 10 ML i... IV ONE (18:03)
[2020-09-21 18:07] LABS: Troponin I 0.03 ng/mL (<0.03)
[2020-09-21] MEDS: NS 0.9% 1000 ml BAG 1,000 ML IV SCH ×2 (18:21→18:22)
[2020-09-21 19:07] LABS: Alcohol, S 459 mg/dL (<10)
[2020-09-21] MEDS ORDERED: Ondansetron 4 mg VIAL 2 MG/ML 2 ml VIAL IV PRN (20:47)
[2020-09-21] MEDS ORDERED: Thiamine IV 100 MG, Folic Acid 1 MG, Multiple Vitamin IV ADULT 10 ML in NS 0.9% 1000 ml... IVPB ONE (20:57)
[2020-09-21] MEDS ORDERED: Piperacillin/Tazobac ADVAN 3.375 GM in NS 0.9% 100 ml BAG 100 ML IV ONE (21:02)
[2020-09-21] MEDS ORDERED: Lactated Ringers 1000 ml BAG 1,000 ML IV ONE (21:18)
[2020-09-21] MEDS ORDERED: Zosyn per Pharmacy NOTE FOLLOW UP SCH (22:00)
[2020-09-21 22:23] LABS: Urine Appearance Cloudy; Urine Bilirubin Negative (Negative); Urine Blood 1+ (Negative); Urine Color Yellow; Urine Glucose Negative (Negative); Urine Ketones Negative (Negative); Urine Nitrite Negative (Negative); Urine Protein 3+(>=500 mg/dL) (Negative); Urine Specific Gravity 1.011 (1.010-1.030); Urine Urobilinogen Negative (Negative)
[2020-09-21 22:26] LABS: Urine Bacteria 1+ (Absent); Urine Red Blood Cell Trace(0-2/hpf) (Absent); Urine Squamous Epithelial Cell Present (Absent); Urine White Blood Cell Trace(0-5/hpf) (Absent)
[2020-09-22] MEDS: Enoxaparin 40 MG/0.4 ML SYR SUBCUT SCH ×2 (01:04→20:39)
[2020-09-22] MEDS: Morphine ER 30 mg TAB ** extended release PO SCH ×3 (01:35→22:21)
[2020-09-22] MEDS: ZOSYN 3.375 GM Q8H per EXTENDED INFUSION IV SCH ×3 (01:36→18:21)
[2020-09-22 07:22] LABS: ABS Lymphocytes 0.7 10^3/ul (1.0-4.8); ABS Monocytes 0.9 10^3/ul (0-0.8); ABS Neutrophils 11.3 10^3/ul (1.5-7.7); Hematocrit 36 % (42-52); Hemoglobin 11.7 g/dL (14.0-18.0); Lymphocyte % 5.6 %; Mean Corpuscular HGB Conc 33 g/dL (31-36); Mean Corpuscular Hemoglobin 31 pg (27-31); Mean Corpuscular Volume 96 fL (80-94); Mean Platelet Volume 9.2 fL (7.4-10.4); Platelet Count 233 10^3/uL (150-450); Red Blood Count 3.72 10^6 /uL (4.18-5.48); Red Cell Distribution Width 15 % (10-15); White Blood Count 12.9 10^3/uL (3.5-10.8)
[2020-09-22 07:40] LABS: Albumin 3.3 g/dL (3.2-5.2); Albumin/Globulin Ratio 1.3 (1-3); BUN/Creatinine Ratio 23.7 (8-20); Calcium 8.1 mg/dL (8.6-10.3); EGFR African American 63.8 (>60); EGFR Non-African American 52.7 (>60); Globulin 2.6 g/dL (2-4); Potassium 4.8 mmol/L (3.5-5.0); Total Bilirubin 0.7 mg/dL (0.2-1.0); Total Protein 5.9 g/dL (6.4-8.9)
[2020-09-22] MEDS ORDERED: Lactated Ringers 1000 ml BAG 1,000 ML IV SCH (10:00)
[2020-09-22] MEDS: Multivitamins/Minerals TAB PO SCH (10:13)
[2020-09-22] MEDS ORDERED: Lorazepam PYXIS KEY PRN (11:51)
[2020-09-22] MEDS ORDERED: LORazepam 2 mg VIAL 1 ml IV PUSH PRN (11:51)
[2020-09-22] MEDS ORDERED: Metoprolol Tartrate 5 mg VIAL 5 ml VIAL (1 mg/ml) IV ONE (12:01)
[2020-09-23] MEDS: ZOSYN 3.375 GM Q8H per EXTENDED INFUSION IV SCH ×3 (01:38→18:36)
[2020-09-23 06:15] LABS: ABS Basophils 0.1 10^3/ul (0-0.2); ABS Eosinophils 0.1 10^3/ul (0-0.6); ABS Lymphocytes 1.1 10^3/ul (1.0-4.8); ABS Neutrophils 8.6 10^3/ul (1.5-7.7); Eosinophil % 0.9 %; Hematocrit 33 % (42-52); Hemoglobin 11.2 g/dL (14.0-18.0); Lymphocyte % 10.3 %; Mean Corpuscular HGB Conc 34 g/dL (31-36); Mean Corpuscular Hemoglobin 32 pg (27-31); Mean Corpuscular Volume 95 fL (80-94); Mean Platelet Volume 9.1 fL (7.4-10.4); Platelet Count 166 10^3/uL (150-450); Red Blood Count 3.47 10^6 /uL (4.18-5.48); Red Cell Distribution Width 14 % (10-15); White Blood Count 10.9 10^3/uL (3.5-10.8)
[2020-09-23] MEDS: Morphine ER 30 mg TAB ** extended release PO SCH ×2 (10:33→21:00)
[2020-09-23] MEDS: Multivitamins/Minerals TAB PO SCH (10:34)
[2020-09-23] MEDS: Enoxaparin 40 MG/0.4 ML SYR SUBCUT SCH (20:59)
[2020-09-23] MEDS ORDERED: Morphine ER 30 mg TAB ** extended release PO SCH (21:00)
[2020-09-24] MEDS: ZOSYN 3.375 GM Q8H per EXTENDED INFUSION IV SCH ×3 (01:25→18:14)
[2020-09-24 06:37] LABS: Hematocrit 31 % (42-52); Hemoglobin 10.5 g/dL (14.0-18.0); Mean Corpuscular HGB Conc 34 g/dL (31-36); Mean Corpuscular Hemoglobin 32 pg (27-31); Mean Corpuscular Volume 94 fL (80-94); Mean Platelet Volume 9.3 fL (7.4-10.4); Platelet Count 142 10^3/uL (150-450); Red Blood Count 3.28 10^6 /uL (4.18-5.48); Red Cell Distribution Width 14 % (10-15); White Blood Count 8.2 10^3/uL (3.5-10.8)
[2020-09-24 07:06] LABS: Calcium 8.6 mg/dL (8.6-10.3); Magnesium 1.3 mg/dL (1.9-2.7); Potassium 3.8 mmol/L (3.5-5.0)
[2020-09-24 07:12] LABS: BUN/Creatinine Ratio 14.5 (8-20); EGFR African American 111.8 (>60); EGFR Non-African American 92.4 (>60)
[2020-09-24] MEDS ORDERED: Magnesium Sulf 4 GM/100 ML IV 4,000 MG/100 ML BAG IVPB ONE (07:44)
[2020-09-24] MEDS: Multivitamins/Minerals TAB PO SCH (09:59)
[2020-09-24] MEDS: Morphine ER 30 mg TAB ** extended release PO SCH ×2 (10:00→20:16)
[2020-09-24] MEDS: Polyethylene Glycol 3350 17 GM PACKET PO SCH (18:14)
[2020-09-24] MEDS: Enoxaparin 40 MG/0.4 ML SYR SUBCUT SCH (20:17)
[2020-09-25] MEDS: ZOSYN 3.375 GM Q8H per EXTENDED INFUSION IV SCH ×2 (02:01→08:54)
[2020-09-25 07:02] LABS: BUN/Creatinine Ratio 11.9 (8-20); Calcium 8.9 mg/dL (8.6-10.3); EGFR African American 89.2 (>60); EGFR Non-African American 73.7 (>60); Magnesium 1.8 mg/dL (1.9-2.7); Potassium 3.4 mmol/L (3.5-5.0)
[2020-09-25] MEDS ORDERED: Magnesium Sulfate 2 gm BAG 2 GM/50 ML BAG IVPB ONE (07:46)
[2020-09-25] MEDS: Polyethylene Glycol 3350 17 GM PACKET PO SCH (08:46)
[2020-09-25] MEDS: Multivitamins/Minerals TAB PO SCH (08:47)
[2020-09-25] MEDS: Morphine ER 30 mg TAB ** extended release PO SCH (08:53)
[2020-09-25] MEDS ORDERED: Influenza VAC *QUAD* 2020-21* 0.5 ML SYRINGE IM ONE (09:00)
[2020-09-25 16:49] VITALS: BP 134/70
== END 2020-09-25 17:15 | disposition home or self-care (01) | DRG 871 ==
LOC: ED 16:41 → MED 20:47
PROVIDERS: ADMIT Internal Medicine; ATTEND Internal Medicine

== ENCOUNTER 2020-11-24 06:19 | Inpatient (IN) ==
[2020-11-24] MEDS ORDERED: Pantoprazole VIAL 40 MG VIAL IV ONE (06:30)
[2020-11-24] MEDS ORDERED: NS 0.9% 1000 ml BAG 1,000 ML IV ONE ×2 (06:30→08:03)
[2020-11-24] MEDS ORDERED: Thiamine 100 MG/ML 2 ml VIAL 100 MG, Folic Acid IV 1 MG, Multiple Vitamin IV ADULT 10 M... IV ONE (06:45)
[2020-11-24 07:40] LABS: ABS Monocytes 1.2 10^3/ul (0-0.8); ABS Neutrophils 13.3 10^3/ul (1.5-7.7); Hematocrit 39 % (42-52); Hemoglobin 13.1 g/dL (14.0-18.0); Lymphocyte % 6.3 %; Mean Corpuscular HGB Conc 34 g/dL (31-36); Mean Corpuscular Hemoglobin 31 pg (27-31); Mean Corpuscular Volume 92 fL (80-94); Mean Platelet Volume 9.4 fL (7.4-10.4); Nucleated Red Blood Cells % 0.1; Platelet Count 283 10^3/uL (150-450); Red Blood Count 4.25 10^6 /uL (4.18-5.48); Red Cell Distribution Width 14 % (10-15); White Blood Count 15.6 10^3/uL (3.5-10.8)
[2020-11-24 07:55] LABS: ALT 38 U/L (7-52); Albumin 4.1 g/dL (3.2-5.2); Albumin/Globulin Ratio 1.3 (1-3); Alkaline Phosphatase 85 U/L (34-104); BUN/Creatinine Ratio 68.4 (8-20); Blood Urea Nitrogen 93 mg/dL (6-24); CO2 Carbon Dioxide 25 mmol/L (22-32); Calcium 10.5 mg/dL (8.6-10.3); Chloride 98 mmol/L (101-111); Creatine Kinase 112 U/L (10-223); EGFR African American 63.2 (>60); EGFR Non-African American 52.3 (>60); Globulin 3.2 g/dL (2-4); Glucose 136 mg/dL (70-100); INR 0.83 (0.82-1.09); Lipase 52 U/L (11.0-82.0); Sodium 135 mmol/L (135-145); Total Protein 7.3 g/dL (6.4-8.9)
[2020-11-24 08:07] LABS: Anion Gap 12 mmol/L (2-11); Troponin I 0.04 ng/mL (<0.03)
[2020-11-24] MEDS ORDERED: Diltiazem IV push/loading dose 5 MG/ML 5 ML vial (25 mg) IV SLOW PU ONE (08:14)
[2020-11-24 08:30] LABS: Alcohol, S < 10 mg/dL (<10)
[2020-11-24] MEDS ORDERED: Metoprolol Tartrate 5 mg VIAL 5 ml VIAL (1 mg/ml) IV ONE (08:31)
[2020-11-24] MEDS ORDERED: Metoprolol Tartrate 5 mg VIAL 5 ml VIAL (1 mg/ml) ONE (08:33)
[2020-11-24 08:58] LABS: Magnesium 2.4 mg/dL (1.9-2.7)
[2020-11-24 09:11] LABS: Influenza A Molecular Negative (Negative); Influenza B Molecular Negative (Negative)
[2020-11-24] MEDS ORDERED: Lorazepam PYXIS KEY PRN ×2 (09:20→15:17)
[2020-11-24] MEDS ORDERED: LORazepam 2 mg VIAL 1 ml IV PUSH SCH (10:00)
[2020-11-24 10:32] LABS: Potassium Redraw 4.7 mmol/L (3.5-5.0)
[2020-11-24] MEDS: Pantoprazole 80 mg in NS BAG 80 MG/250 ML BAG IV SCH ×2 (10:55→20:32)
[2020-11-24] MEDS: Morphine ER 30 mg TAB ** extended release PO SCH ×2 (12:51→20:32)
[2020-11-24] MEDS: cefTRIAXone 1 gm/50 mL NS BAG 1 GM/50 ML BAG IVPB SCH (12:52)
[2020-11-24 14:17] LABS: Hematocrit 32 % (42-52); Hemoglobin 10.5 g/dL (14.0-18.0); Mean Corpuscular HGB Conc 33 g/dL (31-36); Mean Corpuscular Hemoglobin 31 pg (27-31); Mean Corpuscular Volume 92 fL (80-94); Mean Platelet Volume 8.5 fL (7.4-10.4); Platelet Count 233 10^3/uL (150-450); Red Blood Count 3.43 10^6 /uL (4.18-5.48); Red Cell Distribution Width 14 % (10-15)
[2020-11-24 14:33] LABS: ALT 29 U/L (7-52); AST 27 U/L (13-39); Albumin 3.5 g/dL (3.2-5.2); Albumin/Globulin Ratio 1.5 (1-3); Alkaline Phosphatase 73 U/L (34-104); Anion Gap 8 mmol/L (2-11); BUN/Creatinine Ratio 75.5 (8-20); Blood Urea Nitrogen 74 mg/dL (6-24); CO2 Carbon Dioxide 25 mmol/L (22-32); Calcium 8.9 mg/dL (8.6-10.3); Chloride 108 mmol/L (101-111); EGFR African American 92.3 (>60); EGFR Non-African American 76.3 (>60); Globulin 2.4 g/dL (2-4); Glucose 135 mg/dL (70-100); Potassium 4.2 mmol/L (3.5-5.0); Sodium 141 mmol/L (135-145); Total Protein 5.9 g/dL (6.4-8.9)
[2020-11-24 14:37] LABS: Urine Appearance Clear; Urine Bilirubin Negative (Negative); Urine Blood Negative (Negative); Urine Color Yellow; Urine Glucose Negative (Negative); Urine Ketones Trace (Negative); Urine Nitrite Negative (Negative); Urine Protein 1+(30 mg/dL) (Negative); Urine Specific Gravity 1.013 (1.010-1.030); Urine Urobilinogen Negative (Negative)
[2020-11-24 14:52] LABS: ABS Lymphocytes 0.5 10^3/ul (1.0-4.8); ABS Monocytes 1.2 10^3/ul (0-0.8); ABS Neutrophils 10.2 10^3/ul (1.5-7.7); Nucleated Red Blood Cells % 0.1
[2020-11-24] MEDS ORDERED: LORazepam 2 mg VIAL 1 ml IV PUSH PRN (15:17)
[2020-11-24 15:19] LABS: Troponin I 0.04 ng/mL (<0.03)
[2020-11-24 16:44] LABS: Urine Bacteria Absent (Absent); Urine Red Blood Cell Trace(0-2/hpf) (Absent); Urine White Blood Cell Trace(0-5/hpf) (Absent)
[2020-11-24] MEDS ORDERED: Al Hydrox/Mg Hydrox/Simet LIQ 30 ML UDC PO PRN (18:15)
[2020-11-24 21:18] LABS: ABS Lymphocytes 0.6 10^3/ul (1.0-4.8); ABS Monocytes 1.3 10^3/ul (0-0.8); ABS Neutrophils 7.5 10^3/ul (1.5-7.7); Eosinophil % 0.5 %; Hematocrit 33 % (42-52); Hemoglobin 10.9 g/dL (14.0-18.0); Lymphocyte % 6.8 %; Mean Corpuscular HGB Conc 33 g/dL (31-36); Mean Corpuscular Hemoglobin 31 pg (27-31); Mean Corpuscular Volume 93 fL (80-94); Mean Platelet Volume 8.5 fL (7.4-10.4); Platelet Count 213 10^3/uL (150-450); Red Blood Count 3.53 10^6 /uL (4.18-5.48); Red Cell Distribution Width 14 % (10-15); White Blood Count 9.4 10^3/uL (3.5-10.8)
[2020-11-24 21:21] LABS: Albumin 3.5 g/dL (3.2-5.2); Calcium 9.2 mg/dL (8.6-10.3); Potassium 4.3 mmol/L (3.5-5.0); Total Bilirubin 0.5 mg/dL (0.2-1.0)
[2020-11-24 21:27] LABS: Albumin/Globulin Ratio 1.3 (1-3); BUN/Creatinine Ratio 61.9 (8-20); EGFR African American 85.2 (>60); EGFR Non-African American 70.5 (>60); Globulin 2.6 g/dL (2-4); Total Protein 6.1 g/dL (6.4-8.9)
[2020-11-25] MEDS: Thiamine 100 MG/ML 2 ml VIAL 100 MG in NS 0.9% 50 ML 50 ML IV SCH ×2 (01:36→23:14)
[2020-11-25] MEDS ORDERED: Al Hydrox/Mg Hydrox/Simet LIQ 30 ML UDC PO ONE ×2 (06:07→21:07)
[2020-11-25 06:12] LABS: ABS Eosinophils 0.1 10^3/ul (0-0.6); ABS Lymphocytes 0.9 10^3/ul (1.0-4.8); ABS Monocytes 0.9 10^3/ul (0-0.8); ABS Neutrophils 6.9 10^3/ul (1.5-7.7); Eosinophil % 1.6 %; Hematocrit 32 % (42-52); Hemoglobin 10.5 g/dL (14.0-18.0); Lymphocyte % 10.5 %; Mean Corpuscular HGB Conc 33 g/dL (31-36); Mean Corpuscular Hemoglobin 31 pg (27-31); Mean Corpuscular Volume 93 fL (80-94); Mean Platelet Volume 8.5 fL (7.4-10.4); Nucleated Red Blood Cells % 0.1; Platelet Count 229 10^3/uL (150-450); Red Cell Distribution Width 15 % (10-15); White Blood Count 8.9 10^3/uL (3.5-10.8)
[2020-11-25] MEDS: Pantoprazole 80 mg in NS BAG 80 MG/250 ML BAG IV SCH (06:21)
[2020-11-25 06:35] LABS: Albumin 3.2 g/dL (3.2-5.2); Albumin/Globulin Ratio 1.3 (1-3); Calcium 9.4 mg/dL (8.6-10.3); EGFR African American 94.5 (>60); EGFR Non-African American 78.1 (>60); Globulin 2.5 g/dL (2-4); Potassium 4.2 mmol/L (3.5-5.0); Total Bilirubin 0.5 mg/dL (0.2-1.0); Total Protein 5.7 g/dL (6.4-8.9)
[2020-11-25] MEDS: Morphine ER 30 mg TAB ** extended release PO SCH ×2 (08:03→20:19)
[2020-11-25] MEDS: Multivitamins/Minerals TAB PO SCH (08:12)
[2020-11-25] MEDS: Pantoprazole VIAL 40 MG VIAL IV SCH ×2 (09:18→20:18)
[2020-11-25 10:10] LABS: Magnesium 1.7 mg/dL (1.9-2.7); Phosphorus 1.7 mg/dL (2.5-5.0)
[2020-11-25] MEDS ORDERED: Magnesium Sulfate IV 3 GM in NS 0.9% 100 ml BAG 100 ML IVPB ONE (10:36)
[2020-11-25] MEDS ORDERED: Potassium Phosphate IV 15 MMOLE in NS 0.9% 250 ml 250 ML IVPB ONE (10:37)
[2020-11-25] MEDS: cefTRIAXone 1 gm/50 mL NS BAG 1 GM/50 ML BAG IVPB SCH (11:55)
[2020-11-25 18:38] LABS: BUN/Creatinine Ratio 35.8 (8-20); Calcium 9.7 mg/dL (8.6-10.3); EGFR African American 84.3 (>60); EGFR Non-African American 69.7 (>60); Magnesium 2.4 mg/dL (1.9-2.7); Potassium 4.7 mmol/L (3.5-5.0)
[2020-11-26 00:18] LABS: Hematocrit 30 % (42-52); Hemoglobin 9.8 g/dL (14.0-18.0); Mean Corpuscular HGB Conc 33 g/dL (31-36); Mean Corpuscular Hemoglobin 31 pg (27-31); Mean Corpuscular Volume 93 fL (80-94); Mean Platelet Volume 9.6 fL (7.4-10.4); Platelet Count 217 10^3/uL (150-450); Red Blood Count 3.19 10^6 /uL (4.18-5.48); Red Cell Distribution Width 14 % (10-15)
[2020-11-26] MEDS: Morphine ER 30 mg TAB ** extended release PO SCH ×2 (10:05→20:26)
[2020-11-26] MEDS: Multivitamins/Minerals TAB PO SCH (10:05)
[2020-11-26] MEDS: Pantoprazole VIAL 40 MG VIAL IV SCH ×2 (10:06→20:25)
[2020-11-26] MEDS: cefTRIAXone 1 gm/50 mL NS BAG 1 GM/50 ML BAG IVPB SCH (13:10)
[2020-11-26] MEDS: Al Hydrox/Mg Hydrox/Simet LIQ 30 ML UDC PO PRN (13:45)
[2020-11-26] MEDS ORDERED: Azithromycin 500 mg/250 ml NS 500 MG/250 ML BAG IVPB SCH (16:00)
[2020-11-26] MEDS: metroNIDAZOLE IV 500 MG/100ML 500 MG/100 ML BAG IVPB SCH (16:57)
[2020-11-26] MEDS: Thiamine 100 MG/ML 2 ml VIAL 100 MG in NS 0.9% 50 ML 50 ML IV SCH (20:25)
[2020-11-27] MEDS: metroNIDAZOLE IV 500 MG/100ML 500 MG/100 ML BAG IVPB SCH ×3 (00:24→16:25)
[2020-11-27 05:11] LABS: ABS Eosinophils 0.1 10^3/ul (0-0.6); ABS Monocytes 1.3 10^3/ul (0-0.8); ABS Neutrophils 8.9 10^3/ul (1.5-7.7); Eosinophil % 1.2 %; Hematocrit 28 % (42-52); Hemoglobin 9.2 g/dL (14.0-18.0); Lymphocyte % 8.5 %; Mean Corpuscular HGB Conc 33 g/dL (31-36); Mean Corpuscular Hemoglobin 31 pg (27-31); Mean Corpuscular Volume 92 fL (80-94); Mean Platelet Volume 8.8 fL (7.4-10.4); Platelet Count 206 10^3/uL (150-450); Red Blood Count 3.02 10^6 /uL (4.18-5.48); Red Cell Distribution Width 14 % (10-15); White Blood Count 11.2 10^3/uL (3.5-10.8)
[2020-11-27 05:26] LABS: BUN/Creatinine Ratio 30.7 (8-20); C Reactive Protein 200.01 mg/L (<8.01); Calcium 8.9 mg/dL (8.6-10.3); EGFR African American 89.2 (>60); EGFR Non-African American 73.7 (>60); Phosphorus 1.9 mg/dL (2.5-5.0); Potassium 3.7 mmol/L (3.5-5.0)
[2020-11-27] MEDS: Multivitamins/Minerals TAB PO SCH (08:43)
[2020-11-27] MEDS: Morphine ER 30 mg TAB ** extended release PO SCH ×2 (08:44→20:49)
[2020-11-27] MEDS: Pantoprazole VIAL 40 MG VIAL IV SCH (08:48)
[2020-11-27] MEDS ORDERED: Midazolam 10 mg/10 ml VIAL 1 mg/ml 10 ml VIAL (10 mg) ONE (10:01)
[2020-11-27] MEDS ORDERED: fentaNYL 100 mcg/2 ml 50 MCG/ML VIAL ONE (10:02)
[2020-11-27] MEDS: cefTRIAXone 1 gm/50 mL NS BAG 1 GM/50 ML BAG IVPB SCH (12:26)
[2020-11-27] MEDS ORDERED: Perflutren Lipid Microsphere 3 ML VIAL ONE (13:32)
[2020-11-27] MEDS: Al Hydrox/Mg Hydrox/Simet LIQ 30 ML UDC PO PRN (16:31)
[2020-11-27] MEDS: Thiamine 100 MG/ML 2 ml VIAL 100 MG in NS 0.9% 50 ML 50 ML IV SCH (20:50)
[2020-11-28] MEDS: metroNIDAZOLE IV 500 MG/100ML 500 MG/100 ML BAG IVPB SCH ×3 (00:41→16:20)
[2020-11-28 04:40] LABS: ABS Eosinophils 0.2 10^3/ul (0-0.6); ABS Lymphocytes 0.9 10^3/ul (1.0-4.8); ABS Monocytes 1.5 10^3/ul (0-0.8); ABS Neutrophils 6.7 10^3/ul (1.5-7.7); Eosinophil % 2.6 %; Hematocrit 27 % (42-52); Hemoglobin 9.1 g/dL (14.0-18.0); Lymphocyte % 9.3 %; Mean Corpuscular HGB Conc 34 g/dL (31-36); Mean Corpuscular Hemoglobin 31 pg (27-31); Mean Corpuscular Volume 92 fL (80-94); Mean Platelet Volume 8.4 fL (7.4-10.4); Platelet Count 227 10^3/uL (150-450); Red Blood Count 2.95 10^6 /uL (4.18-5.48); Red Cell Distribution Width 14 % (10-15); White Blood Count 9.3 10^3/uL (3.5-10.8)
[2020-11-28 04:56] LABS: BUN/Creatinine Ratio 25.8 (8-20); EGFR African American 93.4 (>60); EGFR Non-African American 77.2 (>60); Potassium 3.9 mmol/L (3.5-5.0)
[2020-11-28] MEDS ORDERED: Metoprolol Tartrate 5 mg VIAL 5 ml VIAL (1 mg/ml) IV ONE (06:16)
[2020-11-28] MEDS: Multivitamins/Minerals TAB PO SCH (08:39)
[2020-11-28] MEDS: Morphine ER 30 mg TAB ** extended release PO SCH ×2 (08:39→20:32)
[2020-11-28] MEDS: cefTRIAXone 1 gm/50 mL NS BAG 1 GM/50 ML BAG IVPB SCH (10:56)
[2020-11-28] MEDS: Thiamine 100 MG/ML 2 ml VIAL 100 MG in NS 0.9% 50 ML 50 ML IV SCH (20:32)
[2020-11-29] MEDS: metroNIDAZOLE IV 500 MG/100ML 500 MG/100 ML BAG IVPB SCH ×3 (01:25→16:27)
[2020-11-29] MEDS: Morphine ER 30 mg TAB ** extended release PO SCH ×2 (09:44→21:04)
[2020-11-29] MEDS: Multivitamins/Minerals TAB PO SCH (09:45)
[2020-11-29 10:34] LABS: Hematocrit 26 % (42-52); Hemoglobin 8.8 g/dL (14.0-18.0); Mean Corpuscular HGB Conc 34 g/dL (31-36); Mean Corpuscular Hemoglobin 31 pg (27-31); Mean Corpuscular Volume 93 fL (80-94); Mean Platelet Volume 8.4 fL (7.4-10.4); Platelet Count 276 10^3/uL (150-450); Red Blood Count 2.84 10^6 /uL (4.18-5.48); Red Cell Distribution Width 14 % (10-15); White Blood Count 8.9 10^3/uL (3.5-10.8)
[2020-11-29 10:46] LABS: ABS Eosinophils 0.1 10^3/ul (0-0.6); ABS Lymphocytes 0.7 10^3/ul (1.0-4.8); ABS Monocytes 1.7 10^3/ul (0-0.8); ABS Neutrophils 6.4 10^3/ul (1.5-7.7); Eosinophil % 1.4 %; Lymphocyte % 7.7 %
[2020-11-29 11:03] LABS: Calcium 9.1 mg/dL (8.6-10.3); EGFR African American 110.3 (>60); EGFR Non-African American 91.1 (>60); Potassium 3.9 mmol/L (3.5-5.0)
[2020-11-29] MEDS: cefTRIAXone 1 gm/50 mL NS BAG 1 GM/50 ML BAG IVPB SCH (11:38)
[2020-11-29] MEDS: Magnesium Hydroxide LIQ 30 ML UDC PO SCH ×2 (11:38→21:04)
[2020-11-29] MEDS: Thiamine 100 MG/ML 2 ml VIAL 100 MG in NS 0.9% 50 ML 50 ML IV SCH (20:59)
[2020-11-30] MEDS: metroNIDAZOLE IV 500 MG/100ML 500 MG/100 ML BAG IVPB SCH ×2 (01:50→09:28)
[2020-11-30] MEDS ORDERED: Morphine 2 MG/ML SYRINGE IV ONE (07:16)
[2020-11-30 08:14] LABS: BUN/Creatinine Ratio 19.8 (8-20); Calcium 9.5 mg/dL (8.6-10.3); EGFR African American 100.6 (>60); EGFR Non-African American 83.1 (>60); Potassium 4.2 mmol/L (3.5-5.0)
[2020-11-30 08:18] LABS: Hematocrit 28 % (42-52); Hemoglobin 9.5 g/dL (14.0-18.0); Mean Corpuscular HGB Conc 33 g/dL (31-36); Mean Corpuscular Hemoglobin 31 pg (27-31); Mean Corpuscular Volume 92 fL (80-94); Platelet Count 374 10^3/uL (150-450); Red Blood Count 3.09 10^6 /uL (4.18-5.48); Red Cell Distribution Width 14 % (10-15); White Blood Count 9.7 10^3/uL (3.5-10.8)
[2020-11-30] MEDS: Multivitamins/Minerals TAB PO SCH (09:31)
[2020-11-30] MEDS: Morphine ER 30 mg TAB ** extended release PO SCH (09:32)
[2020-11-30] MEDS: Magnesium Hydroxide LIQ 30 ML UDC PO SCH (09:33)
[2020-11-30] MEDS: cefTRIAXone 1 gm/50 mL NS BAG 1 GM/50 ML BAG IVPB SCH (12:22)
[2020-11-30 17:30] VITALS: BP 147/64
== END 2020-11-30 16:45 | disposition home or self-care (01) | DRG 194 ==
LOC: ED 06:19 → ICU 08:57 → MEDTELE 11-25 15:32
PROVIDERS: ADMIT Internal Medicine; ATTEND Hospitalist

== ENCOUNTER 2021-01-30 06:47 | Inpatient (IN) ==
[2021-01-30] MEDS ORDERED: Ondansetron 4 mg VIAL 2 MG/ML 2 ml VIAL IV ONE ×2 (06:59→11:37)
[2021-01-30] MEDS ORDERED: NS 0.9% 1000 ml BAG 1,000 ML IV ONE (07:13)
[2021-01-30] MEDS ORDERED: Thiamine 100 MG/ML 2 ml VIAL 100 MG, Folic Acid IV 1 MG, Multiple Vitamin IV ADULT 10 M... IV ONE (07:17)
[2021-01-30 07:41] LABS: ABS Basophils 0.2 10^3/ul (0-0.2); ABS Lymphocytes 0.8 10^3/ul (1.0-4.8); ABS Monocytes 1.2 10^3/ul (0-0.8); ABS Neutrophils 19.8 10^3/ul (1.5-7.7); Hematocrit 42 % (42-52); Hemoglobin 13.7 g/dL (14.0-18.0); Lymphocyte % 3.6 %; Mean Corpuscular HGB Conc 33 g/dL (31-36); Mean Corpuscular Hemoglobin 28 pg (27-31); Mean Corpuscular Volume 85 fL (80-94); Mean Platelet Volume 8.4 fL (7.4-10.4); Platelet Count 410 10^3/uL (150-450); Red Blood Count 4.88 10^6 /uL (4.18-5.48); Red Cell Distribution Width 17 % (10-15)
[2021-01-30 07:49] LABS: INR 0.95 (0.82-1.09)
[2021-01-30 07:59] LABS: ALT 23 U/L (7-52); AST 27 U/L (13-39); Albumin 4.1 g/dL (3.2-5.2); Albumin/Globulin Ratio 1.2 (1-3); Alkaline Phosphatase 107 U/L (34-104); Anion Gap 19 mmol/L (2-11); Blood Urea Nitrogen 35 mg/dL (6-24); C Reactive Protein 19.72 mg/L (<8.01); CO2 Carbon Dioxide 25 mmol/L (22-32); Calcium 10.1 mg/dL (8.6-10.3); Chloride 96 mmol/L (101-111); EGFR African American 72.9 (>60); EGFR Non-African American 60.2 (>60); Globulin 3.5 g/dL (2-4); Glucose 111 mg/dL (70-100); Potassium 3.7 mmol/L (3.5-5.0); Sodium 140 mmol/L (135-145); Total Protein 7.6 g/dL (6.4-8.9)
[2021-01-30] MEDS ORDERED: Piperacillin/Tazobac ADVAN 3.375 GM in NS 0.9% 100 ml BAG 100 ML IV ONE (07:59)
[2021-01-30] MEDS ORDERED: LORazepam 2 mg VIAL 1 ml IV PUSH ONE ×2 (08:01→11:19)
[2021-01-30] MEDS ORDERED: Lorazepam PYXIS KEY PRN ×2 (08:01→11:19)
[2021-01-30 08:11] LABS: Troponin I 0.04 ng/mL (<0.03)
[2021-01-30 08:33] LABS: Alcohol, S 252 mg/dL (<10)
[2021-01-30] MEDS ORDERED: Lactated Ringers 1000 ml BAG 1,000 ML IV ONE (11:28)
[2021-01-30] MEDS ORDERED: Zosyn per Pharmacy NOTE FOLLOW UP SCH (12:00)
[2021-01-30] MEDS: ZOSYN 3.375 GM Q8H per EXTENDED INFUSION IV SCH ×2 (13:19→22:09)
[2021-01-30] MEDS: Lactated Ringers 1000 ml BAG 1,000 ML IV SCH (15:30)
[2021-01-30 17:11] LABS: Hematocrit 36 % (42-52); Hemoglobin 11.7 g/dL (14.0-18.0)
[2021-01-30 17:38] LABS: Anion Gap 12 mmol/L (2-11); Blood Urea Nitrogen 28 mg/dL (6-24); CO2 Carbon Dioxide 25 mmol/L (22-32); Calcium 9.2 mg/dL (8.6-10.3); Chloride 104 mmol/L (101-111); EGFR African American 87.9 (>60); EGFR Non-African American 72.6 (>60); Glucose 93 mg/dL (70-100); Magnesium 1.8 mg/dL (1.9-2.7); Potassium 4.1 mmol/L (3.5-5.0); Sodium 141 mmol/L (135-145)
[2021-01-30 17:43] LABS: Troponin I 0.06 ng/mL (<0.03)
[2021-01-30] MEDS ORDERED: Magnesium Sulfate 2 gm BAG 2 GM/50 ML BAG IVPB ONE (17:59)
[2021-01-30] MEDS: Nystatin TOP POWDER 15 GM BTL TOPICAL SCH (22:09)
[2021-01-30] MEDS: Pantoprazole VIAL 40 MG VIAL IV SCH (22:09)
[2021-01-30] MEDS: Morphine ER 30 mg TAB ** extended release PO SCH (22:40)
[2021-01-31] MEDS: Lactated Ringers 1000 ml BAG 1,000 ML IV SCH ×3 (00:16→19:44)
[2021-01-31] MEDS: ZOSYN 3.375 GM Q8H per EXTENDED INFUSION IV SCH ×2 (04:11→14:40)
[2021-01-31 04:42] LABS: ABS Basophils 0.1 10^3/ul (0-0.2); ABS Eosinophils 0.1 10^3/ul (0-0.6); ABS Lymphocytes 1.4 10^3/ul (1.0-4.8); ABS Monocytes 1.2 10^3/ul (0-0.8); ABS Neutrophils 10.2 10^3/ul (1.5-7.7); Eosinophil % 0.5 %; Hematocrit 34 % (42-52); Hemoglobin 10.8 g/dL (14.0-18.0); Lymphocyte % 10.9 %; Mean Corpuscular HGB Conc 32 g/dL (31-36); Mean Corpuscular Hemoglobin 28 pg (27-31); Mean Corpuscular Volume 87 fL (80-94); Mean Platelet Volume 8.2 fL (7.4-10.4); Platelet Count 263 10^3/uL (150-450); Red Blood Count 3.86 10^6 /uL (4.18-5.48); Red Cell Distribution Width 17 % (10-15)
[2021-01-31 04:58] LABS: Anion Gap 3 mmol/L (2-11); Blood Urea Nitrogen 20 mg/dL (6-24); CO2 Carbon Dioxide 34 mmol/L (22-32); Calcium 9.4 mg/dL (8.6-10.3); Chloride 104 mmol/L (101-111); EGFR African American 102.9 (>60); Glucose 96 mg/dL (70-100); Potassium 3.8 mmol/L (3.5-5.0); Sodium 141 mmol/L (135-145)
[2021-01-31 05:08] LABS: Troponin I 0.05 ng/mL (<0.03)
[2021-01-31 09:12] LABS: Magnesium 2.3 mg/dL (1.9-2.7)
[2021-01-31] MEDS: Multivitamins/Minerals TAB PO SCH (10:38)
[2021-01-31] MEDS: Pantoprazole VIAL 40 MG VIAL IV SCH ×2 (10:39→22:41)
[2021-01-31] MEDS: Morphine ER 30 mg TAB ** extended release PO SCH ×2 (10:44→22:40)
[2021-01-31] MEDS: Nystatin TOP POWDER 15 GM BTL TOPICAL SCH ×2 (10:46→22:41)
[2021-01-31 12:38] LABS: Hematocrit 31 % (42-52); Hemoglobin 10.1 g/dL (14.0-18.0)
[2021-01-31 13:41] LABS: C Reactive Protein 62.91 mg/L (<8.01)
[2021-01-31 14:40] LABS: Urine Appearance Clear; Urine Bilirubin Negative (Negative); Urine Blood Negative (Negative); Urine Color Yellow; Urine Glucose Negative (Negative); Urine Ketones Trace (Negative); Urine Nitrite Negative (Negative); Urine Protein 2+(100 mg/dL) (Negative); Urine Specific Gravity 1.016 (1.002-1.030); Urine Urobilinogen Negative (Negative)
[2021-01-31] MEDS: Calcium Carb (TUMS) 500 mg CHEW TAB PO PRN (14:40)
[2021-01-31 14:43] LABS: Urine Bacteria Absent (Absent); Urine Red Blood Cell Trace(0-2/hpf) (Absent); Urine Squamous Epithelial Cell Present (Absent); Urine White Blood Cell Trace(0-5/hpf) (Absent)
[2021-01-31] MEDS ORDERED: Iohexol 300 (CONTRAST) 10 ML SDV IV ONE (17:41)
[2021-01-31] MEDS: metroNIDAZOLE IV 500 MG/100ML 500 MG/100 ML BAG IVPB SCH (19:44)
[2021-01-31 19:46] LABS: Hematocrit 30 % (42-52); Hemoglobin 9.9 g/dL (14.0-18.0)
[2021-02-01] MEDS: metroNIDAZOLE IV 500 MG/100ML 500 MG/100 ML BAG IVPB SCH ×2 (01:24→09:42)
[2021-02-01 03:25] LABS: Hematocrit 30 % (42-52); Hemoglobin 9.7 g/dL (14.0-18.0)
[2021-02-01] MEDS: Lactated Ringers 1000 ml BAG 1,000 ML IV SCH (05:56)
[2021-02-01] MEDS: Calcium Carb (TUMS) 500 mg CHEW TAB PO PRN ×3 (06:16→19:08)
[2021-02-01] MEDS: Multivitamins/Minerals TAB PO SCH (09:32)
[2021-02-01] MEDS: Morphine ER 30 mg TAB ** extended release PO SCH ×2 (09:34→20:24)
[2021-02-01] MEDS: Pantoprazole VIAL 40 MG VIAL IV SCH ×2 (09:37→20:23)
[2021-02-01] MEDS: Nystatin TOP POWDER 15 GM BTL TOPICAL SCH ×2 (09:59→20:26)
[2021-02-01] MEDS: Sulfamethox/Trimethoprim DS TAB 800/160 mg PO SCH ×2 (12:11→20:25)
[2021-02-01 12:36] LABS: Hematocrit 33 % (42-52); Hemoglobin 10.7 g/dL (14.0-18.0)
[2021-02-01 20:04] LABS: Hematocrit 33 % (42-52)
[2021-02-02 04:54] LABS: Hematocrit 32 % (42-52); Hemoglobin 10.3 g/dL (14.0-18.0)
[2021-02-02 05:09] LABS: Calcium 9.4 mg/dL (8.6-10.3); EGFR African American 93.1 (>60); Potassium 3.8 mmol/L (3.5-5.0)
[2021-02-02 07:55] VITALS: BP 141/58
[2021-02-02] MEDS: Morphine ER 30 mg TAB ** extended release PO SCH (09:15)
[2021-02-02] MEDS: Multivitamins/Minerals TAB PO SCH (09:16)
[2021-02-02] MEDS: Sulfamethox/Trimethoprim DS TAB 800/160 mg PO SCH (09:17)
[2021-02-02] MEDS: Pantoprazole VIAL 40 MG VIAL IV SCH (09:17)
[2021-02-02] MEDS: Nystatin TOP POWDER 15 GM BTL TOPICAL SCH (11:48)
== END 2021-02-02 13:25 | disposition home or self-care (01) | DRG 872 ==
LOC: ED 06:47 → MEDTELE 11:37
PROVIDERS: ADMIT Hospitalist; ATTEND Student in an Organized Health Care Education/Training Program

== ENCOUNTER 2021-02-06 21:03 | Inpatient (IN) ==
[2021-02-06] MEDS ORDERED: NS 0.9% 1000 ml BAG 1,000 ML IV ONE (21:16)
[2021-02-06 22:04] LABS: ABS Eosinophils 0.4 10^3/ul (0-0.6); ABS Lymphocytes 1.2 10^3/ul (1.0-4.8); ABS Monocytes 0.4 10^3/ul (0-0.8); ABS Neutrophils 6.9 10^3/ul (1.5-7.7); Eosinophil % 4.7 %; Hematocrit 32 % (42-52); Hemoglobin 10.9 g/dL (14.0-18.0); Lymphocyte % 13.1 %; Mean Corpuscular HGB Conc 34 g/dL (31-36); Mean Corpuscular Hemoglobin 29 pg (27-31); Mean Corpuscular Volume 86 fL (80-94); Mean Platelet Volume 8.5 fL (7.4-10.4); Platelet Count 337 10^3/uL (150-450); Red Blood Count 3.71 10^6 /uL (4.18-5.48); Red Cell Distribution Width 17 % (10-15); White Blood Count 8.9 10^3/uL (3.5-10.8)
[2021-02-06 22:23] LABS: ALT 25 U/L (7-52); Albumin 3.6 g/dL (3.2-5.2); Albumin/Globulin Ratio 1.3 (1-3); Alkaline Phosphatase 110 U/L (35-149); Blood Urea Nitrogen 25 mg/dL (6-24); CO2 Carbon Dioxide 29 mmol/L (22-32); Calcium 9.2 mg/dL (8.6-10.3); Chloride 102 mmol/L (101-111); EGFR African American 73.6 (>60); EGFR Non-African American 60.8 (>60); Globulin 2.8 g/dL (2-4); Glucose 95 mg/dL (70-100); Sodium 139 mmol/L (135-145); Total Protein 6.4 g/dL (6.4-8.9)
[2021-02-06 22:27] LABS: Troponin I 0.03 ng/mL (<0.03)
[2021-02-06 22:41] LABS: TSH Ultra Thyroid Stim Horm 0.46 mcIU/mL (0.34-5.60)
[2021-02-06] MEDS ORDERED: Iohexol 350 (CONTRAST) 500 ML MDV IV ONE (23:32)
[2021-02-07 01:52] LABS: AST 28 U/L (13-39); Anion Gap 8 mmol/L (2-11); Potassium 4.8 mmol/L (3.5-5.0)
[2021-02-07 03:15] LABS: Alcohol, S 283 mg/dL (<10)
[2021-02-07] MEDS ORDERED: Albuterol/Ipratropium NEB.SOL (2.5/0.5 MG) 3 ML NEB.SOLN INH SCH (05:00)
[2021-02-07] MEDS ORDERED: Enoxaparin 40 MG/0.4 ML SYR SUBCUT SCH (05:00)
[2021-02-07 05:15] LABS: C Reactive Protein 10.88 mg/L (<8.01)
[2021-02-07] MEDS ORDERED: LORazepam 2 mg VIAL 1 ml IV PUSH PRN (05:57)
[2021-02-07] MEDS ORDERED: Lorazepam PYXIS KEY PRN (05:57)
[2021-02-07 08:10] LABS: Creatine Kinase 39 U/L (10-223)
[2021-02-07] MEDS: Albuterol/Ipratropium NEB.SOL (2.5/0.5 MG) 3 ML NEB.SOLN INH SCH ×4 (09:36→19:39)
[2021-02-07 16:08] LABS: Urine Appearance Clear; Urine Bilirubin Negative (Negative); Urine Blood Negative (Negative); Urine Color Yellow; Urine Glucose Negative (Negative); Urine Ketones 1+ (Negative); Urine Nitrite Negative (Negative); Urine Protein 2+(100 mg/dL) (Negative); Urine Specific Gravity 1.019 (1.002-1.030); Urine Urobilinogen Negative (Negative)
[2021-02-07 16:13] LABS: Urine Bacteria Absent (Absent); Urine Red Blood Cell Trace(0-2/hpf) (Absent); Urine Squamous Epithelial Cell Present (Absent); Urine White Blood Cell Trace(0-5/hpf) (Absent)
[2021-02-07] MEDS ORDERED: Albuterol/Ipratropium NEB.SOL (2.5/0.5 MG) 3 ML NEB.SOLN INH PRN (19:49)
[2021-02-07] MEDS: Mometasone/Formoter 200/5 MDI INH SCH (21:13)
[2021-02-08 07:18] LABS: INR 0.9 (0.82-1.09)
[2021-02-08 07:32] LABS: Calcium 9.6 mg/dL (8.6-10.3); EGFR African American 101.5 (>60); EGFR Non-African American 83.9 (>60); Potassium 3.8 mmol/L (3.5-5.0)
[2021-02-08] MEDS ORDERED: cefTRIAXone 1 gm/50 mL NS BAG 1 GM/50 ML BAG IVPB SCH (09:00)
[2021-02-08] MEDS: Mometasone/Formoter 200/5 MDI INH SCH (09:48)
[2021-02-08] MEDS ORDERED: methylPREDNISolone SOD 40 mg/ml 1 ml VIAL IV ONE (18:00)
[2021-02-09 11:59] VITALS: BP 157/66
== END 2021-02-09 16:20 | disposition home or self-care (01) ==
LOC: ED 21:03 → MEDTELE 02-07 04:31
PROVIDERS: ADMIT Hospitalist; ATTEND Internal Medicine

== ENCOUNTER 2021-02-19 20:06 | Inpatient (IN) ==
[2021-02-19] MEDS ORDERED: Iohexol 350 (CONTRAST) 500 ML MDV IV ONE (22:00)
[2021-02-19] MEDS ORDERED: Lactated Ringers 1000 ml BAG 2,000 ML IV ONE (23:28)
[2021-02-20 00:30] LABS: Alcohol, S 323 mg/dL (<10)
[2021-02-20 00:32] LABS: ALT 30 U/L (7-52); AST 45 U/L (13-39); Albumin 3.5 g/dL (3.2-5.2); Albumin/Globulin Ratio 1.3 (1-3); Alkaline Phosphatase 85 U/L (35-149); Anion Gap 13 mmol/L (2-11); Blood Urea Nitrogen 31 mg/dL (6-24); CO2 Carbon Dioxide 24 mmol/L (22-32); Calcium 8.5 mg/dL (8.6-10.3); Chloride 107 mmol/L (101-111); Globulin 2.7 g/dL (2-4); Glucose 72 mg/dL (70-100); Potassium 3.8 mmol/L (3.5-5.0); Sodium 144 mmol/L (135-145); Total Protein 6.2 g/dL (6.4-8.9)
[2021-02-20 00:40] LABS: ABS Basophils 0.1 10^3/ul (0-0.2); ABS Eosinophils 0.1 10^3/ul (0-0.6); ABS Lymphocytes 0.5 10^3/ul (1.0-4.8); Eosinophil % 0.7 %; Hematocrit 36 % (42-52); Hemoglobin 11.5 g/dL (14.0-18.0); Lymphocyte % 5.2 %; Mean Corpuscular HGB Conc 32 g/dL (31-36); Mean Corpuscular Hemoglobin 29 pg (27-31); Mean Corpuscular Volume 90 fL (80-94); Mean Platelet Volume 7.9 fL (7.4-10.4); Platelet Count 296 10^3/uL (150-450); Red Blood Count 4.02 10^6 /uL (4.18-5.48); Red Cell Distribution Width 21 % (10-15); Troponin I 0.05 ng/mL (<0.03); White Blood Count 9.6 10^3/uL (3.5-10.8)
[2021-02-20 00:46] LABS: INR 0.83 (0.82-1.09)
[2021-02-20] MEDS ORDERED: Thiamine 100 MG/ML 2 ml VIAL 100 MG, Folic Acid IV 1 MG, Multiple Vitamin IV ADULT 10 M... IV ONE (01:00)
[2021-02-20] MEDS ORDERED: Diazepam INJ CARPUJECT 5 MG/ML IV ONE (02:44)
[2021-02-20] MEDS ORDERED: Lorazepam PYXIS KEY PRN (02:47)
[2021-02-20] MEDS ORDERED: LORazepam 2 mg VIAL 1 ml IV PUSH ONE (02:47)
[2021-02-20] MEDS ORDERED: Diazepam INJ CARPUJECT 5 MG/ML ONE (02:53)
[2021-02-20 03:06] LABS: Influenza A Molecular Negative (Negative); Influenza B Molecular Negative (Negative)
[2021-02-20] MEDS ORDERED: Thiamine 100 MG/ML 2 ml VIAL (200 mg) IM ONE (03:39)
[2021-02-20] MEDS ORDERED: NFT: Albuterol/Ipratropium RESP(NF) MDI (Combivent Respimat) INH PRN (03:43)
[2021-02-20] MEDS: Enoxaparin 40 MG/0.4 ML SYR SUBCUT SCH (07:34)
[2021-02-20 08:34] LABS: Albumin 3.3 g/dL (3.2-5.2)
[2021-02-20 08:40] LABS: ALT 28 U/L (7-52); Albumin/Globulin Ratio 1.3 (1-3); Alkaline Phosphatase 81 U/L (35-149); Globulin 2.6 g/dL (2-4); Lipase 38 U/L (11.0-82.0); Total Protein 5.9 g/dL (6.4-8.9)
[2021-02-20] MEDS: Mometasone/Formoter 100/5 MDI INH SCH ×2 (09:56→20:22)
[2021-02-20] MEDS: Multivitamins/Minerals TAB PO SCH (10:10)
[2021-02-20] MEDS: NS 0.9% w/ 20 Meq KCL 1000 ml 1,000 ML IV SCH (10:36)
[2021-02-20 22:19] LABS: Troponin I 0.04 ng/mL (<0.03)
[2021-02-21] MEDS: NS 0.9% w/ 20 Meq KCL 1000 ml 1,000 ML IV SCH (05:58)
[2021-02-21 06:01] LABS: ABS Basophils 0.1 10^3/ul (0-0.2); ABS Eosinophils 0.2 10^3/ul (0-0.6); ABS Lymphocytes 0.9 10^3/ul (1.0-4.8); ABS Monocytes 0.8 10^3/ul (0-0.8); ABS Neutrophils 6.7 10^3/ul (1.5-7.7); Eosinophil % 1.9 %; Hematocrit 33 % (42-52); Hemoglobin 10.6 g/dL (14.0-18.0); Lymphocyte % 10.6 %; Mean Corpuscular HGB Conc 33 g/dL (31-36); Mean Corpuscular Hemoglobin 29 pg (27-31); Mean Corpuscular Volume 88 fL (80-94); Mean Platelet Volume 8.8 fL (7.4-10.4); Nucleated Red Blood Cells % 0.1; Platelet Count 219 10^3/uL (150-450); Red Blood Count 3.69 10^6 /uL (4.18-5.48); Red Cell Distribution Width 20 % (10-15); White Blood Count 8.7 10^3/uL (3.5-10.8)
[2021-02-21 06:25] LABS: Calcium 9.4 mg/dL (8.6-10.3); EGFR African American 129.3 (>60); EGFR Non-African American 106.8 (>60); Potassium 3.5 mmol/L (3.5-5.0)
[2021-02-21] MEDS: Mometasone/Formoter 100/5 MDI INH SCH (08:22)
[2021-02-21] MEDS: Multivitamins/Minerals TAB PO SCH (09:25)
[2021-02-21] MEDS: Enoxaparin 40 MG/0.4 ML SYR SUBCUT SCH (09:26)
[2021-02-21] MEDS ORDERED: Albuterol HFA INHALER 8 gm MDI INH PRN (11:16)
[2021-02-21 12:02] VITALS: BP 142/76
== END 2021-02-21 13:30 | disposition home or self-care (01) | DRG 896 ==
LOC: ED 20:06 → EDHOLD 02-20 06:38 → MEDTELE 02-20 12:12
PROVIDERS: ADMIT Internal Medicine; ATTEND Internal Medicine

== ENCOUNTER 2021-02-22 16:59 | Inpatient (IN) ==
[2021-02-22] MEDS ORDERED: Lorazepam PYXIS KEY PRN ×2 (17:21→19:15)
[2021-02-22 17:33] LABS: ABS Basophils 0.1 10^3/ul (0-0.2); ABS Lymphocytes 3.3 10^3/ul (1.0-4.8); ABS Monocytes 0.7 10^3/ul (0-0.8); ABS Neutrophils 7.6 10^3/ul (1.5-7.7); Eosinophil % 0.4 %; Hematocrit 33 % (42-52); Hemoglobin 11.1 g/dL (14.0-18.0); Lymphocyte % 27.9 %; Mean Corpuscular HGB Conc 33 g/dL (31-36); Mean Corpuscular Hemoglobin 29 pg (27-31); Mean Corpuscular Volume 87 fL (80-94); Mean Platelet Volume 8.6 fL (7.4-10.4); Nucleated Red Blood Cells % 0.1; Platelet Count 239 10^3/uL (150-450); Red Blood Count 3.83 10^6 /uL (4.18-5.48); Red Cell Distribution Width 21 % (10-15); White Blood Count 11.7 10^3/uL (3.5-10.8)
[2021-02-22] MEDS: LORazepam 2 mg VIAL 1 ml IV PUSH ONE ×2 (17:38→21:52)
[2021-02-22 17:48] LABS: ALT 47 U/L (7-52); Albumin 3.8 g/dL (3.2-5.2); Albumin/Globulin Ratio 1.2 (1-3); Alkaline Phosphatase 129 U/L (35-149); Blood Urea Nitrogen 11 mg/dL (6-24); CO2 Carbon Dioxide 31 mmol/L (22-32); Calcium 9.4 mg/dL (8.6-10.3); Chloride 98 mmol/L (101-111); EGFR African American 125.3 (>60); EGFR Non-African American 103.6 (>60); Globulin 3.1 g/dL (2-4); Glucose 161 mg/dL (70-100); Sodium 137 mmol/L (135-145); Total Protein 6.9 g/dL (6.4-8.9)
[2021-02-22 18:05] LABS: Anion Gap 8 mmol/L (2-11)
[2021-02-22 18:13] LABS: Acetaminophen < 15 mcg/mL; Alcohol, S < 10 mg/dL (<10); Salicylate < 2.50 mg/dL (<30)
[2021-02-22 18:19] LABS: Urine Benzodiazepine Screen Presumptive Positive (None Detect); Urine Cannabinoids Screen None Detected (None Detect); Urine Opiates Screen Presumptive Positive (None Detect)
[2021-02-22 18:59] LABS: Potassium Redraw 3.2 mmol/L (3.5-5.0)
[2021-02-22] MEDS ORDERED: LORazepam 2 mg VIAL 1 ml IV PUSH ONE (19:15)
[2021-02-22] MEDS ORDERED: LORazepam 2 mg VIAL 1 ml ONE (21:50)
[2021-02-23] MEDS ORDERED: Lorazepam PYXIS KEY PRN ×2 (00:30→09:27)
[2021-02-23] MEDS ORDERED: Albuterol/Ipratropium NEB.SOL (2.5/0.5 MG) 3 ML NEB.SOLN INH PRN (01:03)
[2021-02-23] MEDS: Nicotine PATCH 7 MG/24 HR PATCH TRANSDERM SCH ×2 (01:58→10:33)
[2021-02-23] MEDS: LORazepam 2 mg VIAL 1 ml IV PUSH PRN ×4 (01:58→13:25)
[2021-02-23 06:01] LABS: ABS Basophils 0.1 10^3/ul (0-0.2); ABS Eosinophils 0.1 10^3/ul (0-0.6); ABS Lymphocytes 0.4 10^3/ul (1.0-4.8); ABS Monocytes 1.3 10^3/ul (0-0.8); ABS Neutrophils 8.1 10^3/ul (1.5-7.7); Eosinophil % 0.8 %; Hematocrit 33 % (42-52); Hemoglobin 11.1 g/dL (14.0-18.0); Mean Corpuscular HGB Conc 34 g/dL (31-36); Mean Corpuscular Hemoglobin 29 pg (27-31); Mean Corpuscular Volume 87 fL (80-94); Mean Platelet Volume 8.1 fL (7.4-10.4); Platelet Count 188 10^3/uL (150-450); Red Blood Count 3.78 10^6 /uL (4.18-5.48); Red Cell Distribution Width 20 % (10-15)
[2021-02-23 06:15] LABS: Calcium 9.1 mg/dL (8.6-10.3); EGFR African American 159.1 (>60); EGFR Non-African American 131.5 (>60); Potassium 2.9 mmol/L (3.5-5.0)
[2021-02-23] MEDS ORDERED: Potassium Chlor 20 meq TAB.ER PO ONE ×2 (07:56→10:30)
[2021-02-23] MEDS: Mometasone/Formoter 100/5 MDI INH SCH ×2 (07:59→19:37)
[2021-02-23] MEDS ORDERED: KCL 20 MEQ/100 ML IVPREMIX 20 MEQ/100 ML BAG IV SCH (08:00)
[2021-02-23] MEDS ORDERED: Magnesium Sulf 4 GM/100 ML IV 4,000 MG/100 ML BAG IVPB ONE ×2 (08:10→13:00)
[2021-02-23] MEDS ORDERED: Multivitamins/Minerals TAB PO SCH (09:00)
[2021-02-23] MEDS ORDERED: CMCS: OMEGA-3 FATTY ACID 1000 mg(NF) PO SCH (09:00)
[2021-02-23] MEDS ORDERED: Morphine ER 30 mg TAB ** extended release PO SCH (09:00)
[2021-02-23] MEDS ORDERED: LORazepam 2 mg VIAL 1 ml ONE ×2 (09:02→13:23)
[2021-02-23] MEDS ORDERED: LORazepam 2 mg VIAL 1 ml IV PUSH ONE (09:28)
[2021-02-23] MEDS ORDERED: LORazepam 2 mg VIAL 1 ml IV PUSH PRN (09:30)
[2021-02-23] MEDS ORDERED: Potassium Chlor 20 meq TAB.ER PO SCH (10:30)
[2021-02-23] MEDS ORDERED: levETIRAcetam IV 1,500 MG in NS 0.9% 100 ml BAG 100 ML IVPB ONE ×2 (13:26→13:30)
[2021-02-23] MEDS ORDERED: NS 0.9% IVPB ONE ×2 (13:30→13:45)
[2021-02-23] MEDS ORDERED: FOSPHENYTOIN IVPB ONE ×2 (13:30→13:45)
[2021-02-23] MEDS ORDERED: Succinylcholine 200 mg VIAL 20 mg/ml 10 ml VIAL (200 mg) ONE (14:18)
[2021-02-23] MEDS ORDERED: Propofol 10 mg/ml 100 ML BTL 100 ML ONE (14:18)
[2021-02-23] MEDS ORDERED: Etomidate 40 mg/20 ml (2 MG/ML) 20 ml VIAL (40 mg) ONE (14:25)
[2021-02-23 14:44] LABS: ABS Lymphocytes 0.5 10^3/ul (1.0-4.8); ABS Monocytes 0.4 10^3/ul (0-0.8); ABS Neutrophils 5.7 10^3/ul (1.5-7.7); Eosinophil % 0.2 %; Hematocrit 21 % (42-52); Hemoglobin 6.8 g/dL (14.0-18.0); Lymphocyte % 6.9 %; Mean Corpuscular HGB Conc 33 g/dL (31-36); Mean Corpuscular Hemoglobin 29 pg (27-31); Mean Corpuscular Volume 89 fL (80-94); Mean Platelet Volume 7.8 fL (7.4-10.4); Nucleated Red Blood Cells % 0.1; Platelet Count 106 10^3/uL (150-450); Red Blood Count 2.33 10^6 /uL (4.18-5.48); Red Cell Distribution Width 20 % (10-15); White Blood Count 6.5 10^3/uL (3.5-10.8)
[2021-02-23] MEDS ORDERED: Norepinephrine 16MCG/ML IVPRE 4,000 MCG/250 ML BAG IV ONE (14:52)
[2021-02-23] MEDS ORDERED: Acyclovir IV 500 MG/10 ML 100 ML VIAL (500 MG) IVPB SCH (15:00)
[2021-02-23] MEDS ORDERED: NORMOSOL-R pH 7.4 1000 mL BAG 1,000 ML IV SCH (15:00)
[2021-02-23] MEDS: Propofol 10 mg/ml 100 ML BTL 100 ML IV SCH ×3 (15:02→23:34)
[2021-02-23 15:18] LABS: Albumin 1.9 g/dL (3.2-5.2); Albumin/Globulin Ratio 1.3 (1-3); EGFR African American 312.2 (>60); EGFR Non-African American 258.1 (>60); Globulin 1.5 g/dL (2-4); Total Bilirubin 0.5 mg/dL (0.2-1.0); Total Protein 3.4 g/dL (6.4-8.9)
[2021-02-23] MEDS: Norepinephrine 16MCG/ML IVPRE 4,000 MCG/250 ML BAG IV SCH ×2 (15:19→20:55)
[2021-02-23 16:01] LABS: INR 0.9 (0.82-1.09)
[2021-02-23 16:08] LABS: Albumin 2.7 g/dL (3.2-5.2); Albumin/Globulin Ratio 1.2 (1-3); Calcium 8.2 mg/dL (8.6-10.3); EGFR African American 125.3 (>60); EGFR Non-African American 103.6 (>60); Globulin 2.2 g/dL (2-4); Magnesium 2.2 mg/dL (1.9-2.7); Phosphorus 3.4 mg/dL (2.5-5.0); Potassium 2.9 mmol/L (3.5-5.0); Total Bilirubin 0.8 mg/dL (0.2-1.0); Total Protein 4.9 g/dL (6.4-8.9)
[2021-02-23 16:15] LABS: ABS Lymphocytes 0.7 10^3/ul (1.0-4.8); ABS Monocytes 0.6 10^3/ul (0-0.8); ABS Neutrophils 8.4 10^3/ul (1.5-7.7); Eosinophil % 0.2 %; Hematocrit 28 % (42-52); Hemoglobin 9.5 g/dL (14.0-18.0); Lymphocyte % 7.3 %; Mean Corpuscular HGB Conc 34 g/dL (31-36); Mean Corpuscular Hemoglobin 29 pg (27-31); Mean Corpuscular Volume 86 fL (80-94); Mean Platelet Volume 8.3 fL (7.4-10.4); Nucleated Red Blood Cells % 0.1; Platelet Count 161 10^3/uL (150-450); Red Blood Count 3.28 10^6 /uL (4.18-5.48); Red Cell Distribution Width 20 % (10-15); White Blood Count 9.8 10^3/uL (3.5-10.8)
[2021-02-23] MEDS: Acyclovir IV 700 MG in NS 0.9% 100 ml BAG 100 ML IVPB SCH (16:49)
[2021-02-23 17:39] LABS: Urine Appearance Clear; Urine Bilirubin Negative (Negative); Urine Blood 2+ (Negative); Urine Color Yellow; Urine Glucose 1+(50 mg/dL) (Negative); Urine Ketones 1+ (Negative); Urine Nitrite Negative (Negative); Urine Protein 3+(>=500 mg/dL) (Negative); Urine Specific Gravity 1.019 (1.002-1.030); Urine Urobilinogen Negative (Negative)
[2021-02-23 17:57] LABS: Urine Bacteria Absent (Absent); Urine Red Blood Cell Trace(0-2/hpf) (Absent); Urine Squamous Epithelial Cell Present (Absent); Urine White Blood Cell Trace(0-5/hpf) (Absent)
[2021-02-23] MEDS ORDERED: Enoxaparin 40 MG/0.4 ML SYR SUBCUT SCH (18:00)
[2021-02-23] MEDS: Chlorhexidine MOUTHWASH 0.12% 15 ML UDC TOPICAL SCH ×2 (18:27→21:15)
[2021-02-23] MEDS ORDERED: Potassium Chloride LIQUID 20 MEQ/15 ML LIQUID PO ONE (18:41)
[2021-02-23] MEDS: KCL 20 MEQ/100 ML IVPREMIX 20 MEQ/100 ML BAG IV SCH ×3 (19:20→23:34)
[2021-02-23] MEDS: levETIRAcetam IV 750 MG in NS 0.9% 100 ml BAG 100 ML IVPB SCH (21:16)
[2021-02-23] MEDS: Pantoprazole VIAL 40 MG VIAL IV SCH (21:17)
[2021-02-24] MEDS: Acyclovir IV 700 MG in NS 0.9% 100 ml BAG 100 ML IVPB SCH ×4 (00:26→23:32)
[2021-02-24] MEDS: Chlorhexidine MOUTHWASH 0.12% 15 ML UDC TOPICAL SCH ×6 (00:27→21:07)
[2021-02-24] MEDS: NS 0.9% IVPB SCH ×2 (02:35→10:31)
[2021-02-24] MEDS: FOSPHENYTOIN IVPB SCH ×2 (02:35→10:31)
[2021-02-24] MEDS: Propofol 10 mg/ml 100 ML BTL 100 ML IV SCH ×7 (02:35→22:24)
[2021-02-24] MEDS: NORMOSOL-R pH 7.4 1000 mL BAG 1,000 ML IV SCH ×3 (03:00→18:41)
[2021-02-24] MEDS: Norepinephrine 16MCG/ML IVPRE 4,000 MCG/250 ML BAG IV SCH ×2 (03:47→13:51)
[2021-02-24 05:59] LABS: ABS Eosinophils 0.2 10^3/ul (0-0.6); ABS Lymphocytes 1.3 10^3/ul (1.0-4.8); ABS Monocytes 0.7 10^3/ul (0-0.8); Eosinophil % 2.3 %; Hematocrit 28 % (42-52); Hemoglobin 9.4 g/dL (14.0-18.0); Lymphocyte % 16.3 %; Mean Corpuscular HGB Conc 33 g/dL (31-36); Mean Corpuscular Hemoglobin 29 pg (27-31); Mean Corpuscular Volume 88 fL (80-94); Mean Platelet Volume 8.5 fL (7.4-10.4); Platelet Count 166 10^3/uL (150-450); Red Blood Count 3.22 10^6 /uL (4.18-5.48); Red Cell Distribution Width 21 % (10-15); White Blood Count 8.2 10^3/uL (3.5-10.8)
[2021-02-24 06:15] LABS: Calcium 7.9 mg/dL (8.6-10.3); Potassium 3.3 mmol/L (3.5-5.0)
[2021-02-24] MEDS: Potassium Chloride LIQUID 20 MEQ/15 ML LIQUID PO SCH ×2 (07:52→11:50)
[2021-02-24] MEDS: Pantoprazole VIAL 40 MG VIAL IV SCH ×2 (07:53→21:08)
[2021-02-24] MEDS: levETIRAcetam IV 750 MG in NS 0.9% 100 ml BAG 100 ML IVPB SCH ×2 (08:04→21:07)
[2021-02-24 08:28] LABS: Magnesium 2.2 mg/dL (1.9-2.7); Phosphorus 2.8 mg/dL (2.5-5.0)
[2021-02-24] MEDS: Thiamine 100 MG/ML 2 ml VIAL 500 MG in NS 0.9% 250 ml 250 ML IV SCH ×3 (09:24→23:32)
[2021-02-24] MEDS: Multivitamins ADULT w/MIN LIQ 15 ML UDC PO SCH (09:24)
[2021-02-24] MEDS: Fosphenytoin 100 MG in NS 0.9% 50 ML 50 ML IVPB SCH (18:13)
[2021-02-24] MEDS: Heparin 5000 UNITS/ML 1 mL VIAL SUBCUT SCH (21:07)
[2021-02-25] MEDS: Fosphenytoin 100 MG in NS 0.9% 50 ML 50 ML IVPB SCH ×3 (01:16→18:08)
[2021-02-25] MEDS: Chlorhexidine MOUTHWASH 0.12% 15 ML UDC TOPICAL SCH ×7 (01:16→23:58)
[2021-02-25] MEDS: Propofol 10 mg/ml 100 ML BTL 100 ML IV SCH ×4 (01:17→17:01)
[2021-02-25 05:33] LABS: Hematocrit 31 % (42-52); Hemoglobin 10.1 g/dL (14.0-18.0); Mean Corpuscular HGB Conc 33 g/dL (31-36); Mean Corpuscular Hemoglobin 29 pg (27-31); Mean Corpuscular Volume 88 fL (80-94); Mean Platelet Volume 8.6 fL (7.4-10.4); Platelet Count 155 10^3/uL (150-450); Red Blood Count 3.49 10^6 /uL (4.18-5.48); Red Cell Distribution Width 21 % (10-15); White Blood Count 6.1 10^3/uL (3.5-10.8)
[2021-02-25 05:36] LABS: EGFR African American 75.8 (>60); EGFR Non-African American 62.6 (>60); Potassium 3.4 mmol/L (3.5-5.0)
[2021-02-25 06:06] LABS: Anisocytosis 2+
[2021-02-25 06:07] LABS: ABS Eosinophils 0.2 10^3/ul (0-0.6); ABS Lymphocytes 1.5 10^3/ul (1.0-4.8); ABS Monocytes 0.4 10^3/ul (0-0.8); Eosinophil % 3.9 %; Lymphocyte % 23.7 %
[2021-02-25 06:35] LABS: Phenytoin 12.2 mcg/mL (10-20)
[2021-02-25] MEDS ORDERED: Potassium Chloride LIQUID 20 MEQ/15 ML LIQUID PO ONE ×2 (06:42→07:35)
[2021-02-25] MEDS: Acyclovir IV 700 MG in NS 0.9% 100 ml BAG 100 ML IVPB SCH ×3 (07:38→23:57)
[2021-02-25] MEDS: Thiamine 100 MG/ML 2 ml VIAL 500 MG in NS 0.9% 250 ml 250 ML IV SCH ×2 (07:38→16:10)
[2021-02-25] MEDS: Heparin 5000 UNITS/ML 1 mL VIAL SUBCUT SCH ×2 (07:39→20:10)
[2021-02-25] MEDS: Pantoprazole VIAL 40 MG VIAL IV SCH ×2 (07:40→20:10)
[2021-02-25] MEDS: NORMOSOL-R pH 7.4 1000 mL BAG 1,000 ML IV SCH (07:54)
[2021-02-25 08:04] LABS: Phosphorus 3.4 mg/dL (2.5-5.0)
[2021-02-25] MEDS: levETIRAcetam IV 750 MG in NS 0.9% 100 ml BAG 100 ML IVPB SCH ×2 (08:53→20:11)
[2021-02-25] MEDS: Multivitamins ADULT w/MIN LIQ 15 ML UDC PO SCH (12:32)
[2021-02-25 15:23] LABS: Body Fluid Source Cerebral Spinal
[2021-02-25] MEDS ORDERED: Propofol 10 mg/ml 100 ML BTL 100 ML IV SCH (16:38)
[2021-02-25 16:50] LABS: Body Fluid Appearance Clear; Body Fluid Color Colorless; CSF Tube # 4
[2021-02-25 16:54] LABS: Body Fluid WBC 4 /mcL
[2021-02-25 16:55] LABS: Body Fluid Total Cells Counted 50
[2021-02-25 17:27] LABS: CSF Glucose 74 mg/dL (40-70)
[2021-02-25] MEDS ORDERED: NS 0.9% 100 ml BAG 100 ML ONE ×3 (20:08→23:54)
[2021-02-25] MEDS ORDERED: NS 0.9% 50 ML 50 ML ONE (20:08)
[2021-02-25] MEDS ORDERED: Piperacillin/Tazobac ADVAN 3.375 GM in NS 0.9% 100 ml BAG 100 ML IV ONE (23:11)
[2021-02-25] MEDS ORDERED: Zosyn per Pharmacy NOTE FOLLOW UP SCH (23:45)
[2021-02-25] MEDS ORDERED: NS 0.9% 250 ml 250 ML ONE (23:53)
[2021-02-26] MEDS: Thiamine 100 MG/ML 2 ml VIAL 500 MG in NS 0.9% 250 ml 250 ML IV SCH (00:02)
[2021-02-26 00:43] LABS: Calcium 8.3 mg/dL (8.6-10.3); EGFR African American 76.5 (>60); EGFR Non-African American 63.2 (>60); Potassium 3.9 mmol/L (3.5-5.0)
[2021-02-26 00:46] LABS: Urine Appearance Cloudy; Urine Bilirubin Negative (Negative); Urine Blood Negative (Negative); Urine Color Yellow; Urine Glucose Negative (Negative); Urine Ketones Negative (Negative); Urine Nitrite Negative (Negative); Urine Protein 2+(100 mg/dL) (Negative); Urine Specific Gravity 1.024 (1.002-1.030); Urine Urobilinogen Negative (Negative)
[2021-02-26 00:53] LABS: Urine Bacteria Absent (Absent); Urine Red Blood Cell 2+(6-10/hpf) (Absent); Urine Squamous Epithelial Cell Present (Absent); Urine White Blood Cell Trace(0-5/hpf) (Absent)
[2021-02-26 01:02] LABS: ABS Eosinophils 0.1 10^3/ul (0-0.6); ABS Lymphocytes 0.5 10^3/ul (1.0-4.8); ABS Monocytes 0.5 10^3/ul (0-0.8); ABS Neutrophils 8.2 10^3/ul (1.5-7.7); Eosinophil % 1.1 %; Hematocrit 30 % (42-52); Hemoglobin 9.7 g/dL (14.0-18.0); Lymphocyte % 5.3 %; Mean Corpuscular HGB Conc 33 g/dL (31-36); Mean Corpuscular Hemoglobin 29 pg (27-31); Mean Corpuscular Volume 89 fL (80-94); Mean Platelet Volume 8.6 fL (7.4-10.4); Platelet Count 175 10^3/uL (150-450); Red Blood Count 3.38 10^6 /uL (4.18-5.48); Red Cell Distribution Width 21 % (10-15); White Blood Count 9.3 10^3/uL (3.5-10.8)
[2021-02-26] MEDS: Fosphenytoin 100 MG in NS 0.9% 50 ML 50 ML IVPB SCH ×3 (02:14→18:11)
[2021-02-26] MEDS ORDERED: NS 0.9% 100 ml BAG 100 ML ONE ×3 (03:09→20:50)
[2021-02-26] MEDS: ZOSYN 3.375 GM Q8H per EXTENDED INFUSION IV SCH ×3 (03:41→20:54)
[2021-02-26] MEDS: Chlorhexidine MOUTHWASH 0.12% 15 ML UDC TOPICAL SCH ×5 (03:41→20:55)
[2021-02-26 06:05] LABS: Calcium 8.1 mg/dL (8.6-10.3); EGFR African American 73.6 (>60); EGFR Non-African American 60.8 (>60)
[2021-02-26] MEDS: Acyclovir IV 700 MG in NS 0.9% 100 ml BAG 100 ML IVPB SCH (07:38)
[2021-02-26] MEDS: Heparin 5000 UNITS/ML 1 mL VIAL SUBCUT SCH ×2 (07:42→20:55)
[2021-02-26] MEDS: Pantoprazole VIAL 40 MG VIAL IV SCH ×2 (07:43→20:55)
[2021-02-26] MEDS: levETIRAcetam IV 750 MG in NS 0.9% 100 ml BAG 100 ML IVPB SCH ×2 (08:08→20:58)
[2021-02-26] MEDS: Dexmedetomidine 1,000 MCG in NS 0.9% 250 ml 240 ML IV SCH (08:12)
[2021-02-26] MEDS: NORMOSOL-R pH 7.4 1000 mL BAG 1,000 ML IV SCH ×3 (08:23→22:30)
[2021-02-26] MEDS ORDERED: Linezolid 600 MG IVPREMIX(*) 600 MG/300 ML BAG IVPB SCH (09:00)
[2021-02-26] MEDS ORDERED: Lorazepam PYXIS KEY PRN (09:51)
[2021-02-26] MEDS ORDERED: Vancomycin per Pharmacy 1 EA NOTE FOLLOW UP PRN (10:22)
[2021-02-26] MEDS ORDERED: Vancomycin 1,500 MG in NS 0.9% 250 ml 250 ML IVPB ONE (11:00)
[2021-02-26] MEDS: Multivitamins/Minerals TAB PO SCH (11:04)
[2021-02-26] MEDS: Multivitamins ADULT w/MIN LIQ 15 ML UDC PO SCH (11:45)
[2021-02-26] MEDS: LORazepam 2 mg VIAL 1 ml IV PUSH PRN ×2 (11:55→19:50)
[2021-02-26] MEDS: Thiamine IV 250 MG in NS 0.9% 100 ML Q24H IV SCH (16:14)
[2021-02-26] MEDS: Norepinephrine 16MCG/ML IVPRE 4,000 MCG/250 ML BAG IV SCH (16:57)
[2021-02-26] MEDS ORDERED: NS 0.9% 50 ML 50 ML ONE (20:50)
[2021-02-26] MEDS ORDERED: NS 0.9% 250 ml 250 ML ONE (21:24)
[2021-02-26] MEDS: Vancomycin 1000 MG in NS 0.9% 250 ML IVPB SCH (22:30)
[2021-02-27] MEDS: Chlorhexidine MOUTHWASH 0.12% 15 ML UDC TOPICAL SCH ×6 (00:38→20:02)
[2021-02-27] MEDS ORDERED: NORMOSOL-R pH 7.4 1000 mL BAG 500 ML IV ONE (01:00)
[2021-02-27] MEDS: Fosphenytoin 100 MG in NS 0.9% 50 ML 50 ML IVPB SCH ×2 (02:31→10:24)
[2021-02-27] MEDS: NORMOSOL-R pH 7.4 1000 mL BAG 1,000 ML IV SCH ×2 (03:25→12:11)
[2021-02-27] MEDS ORDERED: NS 0.9% 100 ml BAG 100 ML ONE (04:34)
[2021-02-27] MEDS ORDERED: NS 0.9% 50 ML 50 ML ONE (04:34)
[2021-02-27] MEDS: ZOSYN 3.375 GM Q8H per EXTENDED INFUSION IV SCH ×3 (04:38→20:01)
[2021-02-27] MEDS: LORazepam 2 mg VIAL 1 ml IV PUSH PRN ×2 (04:50→14:50)
[2021-02-27 05:20] LABS: ABS Eosinophils 0.2 10^3/ul (0-0.6); ABS Monocytes 0.8 10^3/ul (0-0.8); ABS Neutrophils 5.8 10^3/ul (1.5-7.7); Eosinophil % 2.7 %; Hematocrit 28 % (42-52); Hemoglobin 9.3 g/dL (14.0-18.0); Lymphocyte % 12.4 %; Mean Corpuscular HGB Conc 33 g/dL (31-36); Mean Corpuscular Hemoglobin 30 pg (27-31); Mean Corpuscular Volume 89 fL (80-94); Mean Platelet Volume 8.4 fL (7.4-10.4); Platelet Count 184 10^3/uL (150-450); Red Blood Count 3.11 10^6 /uL (4.18-5.48); Red Cell Distribution Width 21 % (10-15); White Blood Count 7.8 10^3/uL (3.5-10.8)
[2021-02-27 05:35] LABS: Calcium 8.4 mg/dL (8.6-10.3); EGFR African American 82.3 (>60); Magnesium 1.8 mg/dL (1.9-2.7); Phosphorus 3.7 mg/dL (2.5-5.0)
[2021-02-27] MEDS ORDERED: Magnesium Sulfate 2 gm BAG 2 GM/50 ML BAG IVPB ONE (05:39)
[2021-02-27] MEDS ORDERED: levETIRAcetam LIQ 500 MG/5 ML UDC PO SCH (09:00)
[2021-02-27] MEDS: Multivitamins/Minerals TAB PO SCH (10:18)
[2021-02-27] MEDS: Heparin 5000 UNITS/ML 1 mL VIAL SUBCUT SCH ×2 (10:19→20:02)
[2021-02-27] MEDS: Pantoprazole VIAL 40 MG VIAL IV SCH ×2 (10:20→20:02)
[2021-02-27] MEDS: Vancomycin 1000 MG in NS 0.9% 250 ML IVPB SCH (10:24)
[2021-02-27] MEDS ORDERED: Iohexol 300 (CONTRAST) 10 ML SDV IV ONE (13:34)
[2021-02-27] MEDS ORDERED: LORazepam 2 mg VIAL 1 ml ONE (15:02)
[2021-02-27] MEDS ORDERED: LORazepam 2 mg VIAL 1 ml IV PUSH ONE (16:01)
[2021-02-27] MEDS: Thiamine IV 250 MG in NS 0.9% 100 ML Q24H IV SCH (17:11)
[2021-02-27] MEDS: levETIRAcetam LIQ 500 MG/5 ML UDC PO SCH (20:02)
[2021-02-28] MEDS: Chlorhexidine MOUTHWASH 0.12% 15 ML UDC TOPICAL SCH ×4 (00:52→12:23)
[2021-02-28] MEDS ORDERED: NS 0.9% 100 ml BAG 100 ML ONE (04:24)
[2021-02-28] MEDS: ZOSYN 3.375 GM Q8H per EXTENDED INFUSION IV SCH ×3 (04:27→20:15)
[2021-02-28 05:08] LABS: ABS Basophils 0.1 10^3/ul (0-0.2); ABS Eosinophils 0.3 10^3/ul (0-0.6); ABS Lymphocytes 0.9 10^3/ul (1.0-4.8); ABS Monocytes 1.1 10^3/ul (0-0.8); ABS Neutrophils 6.2 10^3/ul (1.5-7.7); Eosinophil % 3.3 %; Hematocrit 28 % (42-52); Hemoglobin 8.9 g/dL (14.0-18.0); Lymphocyte % 10.6 %; Mean Corpuscular HGB Conc 32 g/dL (31-36); Mean Corpuscular Hemoglobin 29 pg (27-31); Mean Corpuscular Volume 89 fL (80-94); Mean Platelet Volume 8.6 fL (7.4-10.4); Platelet Count 262 10^3/uL (150-450); Red Blood Count 3.13 10^6 /uL (4.18-5.48); Red Cell Distribution Width 21 % (10-15); White Blood Count 8.6 10^3/uL (3.5-10.8)
[2021-02-28 05:24] LABS: Calcium 8.5 mg/dL (8.6-10.3); Potassium 3.9 mmol/L (3.5-5.0)
[2021-02-28 05:29] LABS: EGFR African American 80.5 (>60); EGFR Non-African American 66.6 (>60); Phosphorus 3.7 mg/dL (2.5-5.0)
[2021-02-28] MEDS ORDERED: Potassium Chloride LIQUID 20 MEQ/15 ML LIQUID PO ONE (05:42)
[2021-02-28] MEDS: Dexmedetomidine 1,000 MCG in NS 0.9% 250 ml 240 ML IV SCH (06:13)
[2021-02-28] MEDS: LORazepam 2 mg VIAL 1 ml IV PUSH PRN (07:24)
[2021-02-28] MEDS ORDERED: Furosemide 40 mg/4 ml IV VIAL IV SLOW PU ONE (09:44)
[2021-02-28] MEDS: Multivitamins/Minerals TAB PO SCH (10:14)
[2021-02-28] MEDS: levETIRAcetam LIQ 500 MG/5 ML UDC PO SCH (10:14)
[2021-02-28] MEDS: Heparin 5000 UNITS/ML 1 mL VIAL SUBCUT SCH ×2 (10:14→20:16)
[2021-02-28] MEDS: Pantoprazole VIAL 40 MG VIAL IV SCH ×2 (10:15→20:16)
[2021-02-28] MEDS ORDERED: Vancomycin Trough Check NOTE FOLLOW UP ONE (10:30)
[2021-02-28] MEDS ORDERED: fentaNYL 250 mcg/5 ml 50 MCG/ML 5 ml VIAL (250 MCG) ONE ×2 (10:33→10:35)
[2021-02-28] MEDS ORDERED: fentaNYL 100 mcg/2 ml 50 MCG/ML VIAL IV SLOW PU ONE (15:31)
[2021-02-28] MEDS: Thiamine IV 250 MG in NS 0.9% 100 ML Q24H IV SCH (17:10)
[2021-02-28] MEDS: levETIRAcetam 1000MG IVPREMIX 1,000 MG/100 ML BAG IVPB SCH (20:16)
[2021-02-28] MEDS: Haloperidol 5 mg/ml SDV IV/IM 5 MG/ML AMP IV SLOW PU PRN (20:18)
[2021-03-01] MEDS: Dexmedetomidine 1,000 MCG in NS 0.9% 250 ml 240 ML IV SCH ×3 (01:36→22:07)
[2021-03-01] MEDS: Haloperidol 5 mg/ml SDV IV/IM 5 MG/ML AMP IV SLOW PU PRN ×2 (03:40→09:35)
[2021-03-01] MEDS: ZOSYN 3.375 GM Q8H per EXTENDED INFUSION IV SCH ×3 (03:40→21:08)
[2021-03-01] MEDS: Nystatin TOP POWDER 15 GM BTL TOPICAL SCH ×2 (06:26→21:25)
[2021-03-01 06:48] LABS: Calcium 9.3 mg/dL (8.6-10.3); EGFR African American 82.3 (>60); Magnesium 1.7 mg/dL (1.9-2.7); Phosphorus 3.8 mg/dL (2.5-5.0); Potassium 4.2 mmol/L (3.5-5.0)
[2021-03-01] MEDS ORDERED: Magnesium Sulfate IV 3 GM in NS 0.9% 100 ml BAG 100 ML IVPB ONE (06:49)
[2021-03-01 08:27] LABS: ABS Eosinophils 0.2 10^3/ul (0-0.6); ABS Lymphocytes 1.1 10^3/ul (1.0-4.8); ABS Monocytes 1.1 10^3/ul (0-0.8); ABS Neutrophils 5.5 10^3/ul (1.5-7.7); Eosinophil % 2.9 %; Hematocrit 28 % (42-52); Hemoglobin 9.3 g/dL (14.0-18.0); Lymphocyte % 13.7 %; Mean Corpuscular HGB Conc 33 g/dL (31-36); Mean Corpuscular Hemoglobin 29 pg (27-31); Mean Corpuscular Volume 89 fL (80-94); Mean Platelet Volume 8.5 fL (7.4-10.4); Nucleated Red Blood Cells % 0.1; Platelet Count 321 10^3/uL (150-450); Red Blood Count 3.18 10^6 /uL (4.18-5.48); Red Cell Distribution Width 21 % (10-15)
[2021-03-01] MEDS: Heparin 5000 UNITS/ML 1 mL VIAL SUBCUT SCH ×2 (08:51→21:22)
[2021-03-01] MEDS: Pantoprazole VIAL 40 MG VIAL IV SCH ×2 (08:51→21:11)
[2021-03-01] MEDS: levETIRAcetam 1000MG IVPREMIX 1,000 MG/100 ML BAG IVPB SCH ×2 (08:51→21:08)
[2021-03-01] MEDS ORDERED: Furosemide 40 mg/4 ml IV VIAL IV SLOW PU ONE (09:38)
[2021-03-01] MEDS: Multivitamins/Minerals TAB PO SCH (13:32)
[2021-03-01] MEDS: Multivitamins ADULT w/MIN LIQ 15 ML UDC PO SCH (13:32)
[2021-03-01] MEDS: Thiamine IV 250 MG in NS 0.9% 100 ML Q24H IV SCH (16:37)
[2021-03-02] MEDS: Haloperidol 5 mg/ml SDV IV/IM 5 MG/ML AMP IV SLOW PU PRN ×2 (00:09→16:27)
[2021-03-02] MEDS: ZOSYN 3.375 GM Q8H per EXTENDED INFUSION IV SCH ×3 (04:45→20:35)
[2021-03-02 05:14] LABS: ABS Eosinophils 0.3 10^3/ul (0-0.6); ABS Lymphocytes 0.9 10^3/ul (1.0-4.8); ABS Monocytes 1.1 10^3/ul (0-0.8); ABS Neutrophils 5.9 10^3/ul (1.5-7.7); Eosinophil % 3.1 %; Hematocrit 27 % (42-52); Hemoglobin 8.8 g/dL (14.0-18.0); Lymphocyte % 10.9 %; Mean Corpuscular HGB Conc 32 g/dL (31-36); Mean Corpuscular Hemoglobin 29 pg (27-31); Mean Corpuscular Volume 89 fL (80-94); Mean Platelet Volume 8.8 fL (7.4-10.4); Platelet Count 386 10^3/uL (150-450); Red Blood Count 3.05 10^6 /uL (4.18-5.48); Red Cell Distribution Width 21 % (10-15); White Blood Count 8.2 10^3/uL (3.5-10.8)
[2021-03-02 05:32] LABS: Calcium 8.9 mg/dL (8.6-10.3); EGFR African American 84.1 (>60); EGFR Non-African American 69.5 (>60); Magnesium 1.7 mg/dL (1.9-2.7); Phosphorus 3.9 mg/dL (2.5-5.0); Potassium 3.7 mmol/L (3.5-5.0)
[2021-03-02] MEDS: Dexmedetomidine 1,000 MCG in NS 0.9% 250 ml 240 ML IV SCH (07:28)
[2021-03-02] MEDS ORDERED: Magnesium Sulfate IV 3 GM in NS 0.9% 100 ml BAG 100 ML IVPB ONE (07:34)
[2021-03-02] MEDS ORDERED: KCL 20 MEQ/100 ML IVPREMIX 20 MEQ/100 ML BAG IV ONE (07:34)
[2021-03-02] MEDS: Pantoprazole VIAL 40 MG VIAL IV SCH ×2 (08:40→20:56)
[2021-03-02] MEDS: Heparin 5000 UNITS/ML 1 mL VIAL SUBCUT SCH ×2 (08:40→20:44)
[2021-03-02] MEDS: levETIRAcetam 1000MG IVPREMIX 1,000 MG/100 ML BAG IVPB SCH ×2 (08:42→21:00)
[2021-03-02] MEDS: Nystatin TOP POWDER 15 GM BTL TOPICAL SCH ×2 (08:43→20:58)
[2021-03-02] MEDS: Multivitamins ADULT w/MIN LIQ 15 ML UDC PO SCH (12:04)
[2021-03-02] MEDS ORDERED: Lactated Ringers 500 ml BAG 500 ML IV ONE (14:38)
[2021-03-02] MEDS ORDERED: Metoprolol Tartrate 5 mg VIAL 5 ml VIAL (1 mg/ml) ONE (14:41)
[2021-03-02] MEDS: Metoprolol Tartrate 5 mg VIAL 5 ml VIAL (1 mg/ml) IV PRN ×2 (14:52→21:29)
[2021-03-02] MEDS: Thiamine IV 250 MG in NS 0.9% 100 ML Q24H IV SCH (16:26)
[2021-03-02] MEDS ORDERED: Magnesium Sulfate 2 gm BAG 2 GM/50 ML BAG IVPB ONE (18:04)
[2021-03-02] MEDS ORDERED: Diltiazem IV push/loading dose 5 MG/ML 5 ML vial (25 mg) IV SLOW PU ONE ×2 (18:04→22:24)
[2021-03-02] MEDS ORDERED: Diltiazem IV push/loading dose 5 MG/ML 5 ML vial (25 mg) ONE (22:28)
[2021-03-03] MEDS: Metoprolol Tartrate 5 mg VIAL 5 ml VIAL (1 mg/ml) IV PRN ×2 (04:22→20:31)
[2021-03-03] MEDS: ZOSYN 3.375 GM Q8H per EXTENDED INFUSION IV SCH ×3 (04:38→20:28)
[2021-03-03 06:02] LABS: ABS Basophils 0.1 10^3/ul (0-0.2); ABS Eosinophils 0.1 10^3/ul (0-0.6); ABS Lymphocytes 0.9 10^3/ul (1.0-4.8); ABS Monocytes 1.5 10^3/ul (0-0.8); ABS Neutrophils 7.9 10^3/ul (1.5-7.7); Eosinophil % 1.2 %; Hematocrit 30 % (42-52); Hemoglobin 9.7 g/dL (14.0-18.0); Lymphocyte % 8.7 %; Mean Corpuscular HGB Conc 32 g/dL (31-36); Mean Corpuscular Hemoglobin 29 pg (27-31); Mean Corpuscular Volume 89 fL (80-94); Mean Platelet Volume 8.3 fL (7.4-10.4); Platelet Count 479 10^3/uL (150-450); Red Blood Count 3.38 10^6 /uL (4.18-5.48); Red Cell Distribution Width 20 % (10-15); White Blood Count 10.5 10^3/uL (3.5-10.8)
[2021-03-03] MEDS ORDERED: hydrALAZINE 20 mg/ml 1 ML Vial IV IV SLOW PU ONE (06:09)
[2021-03-03 06:21] LABS: Calcium 9.2 mg/dL (8.6-10.3); EGFR Non-African American 76.1 (>60); HDL Cholesterol 52.5 mg/dL; Magnesium 2.2 mg/dL (1.9-2.7); Phosphorus 3.1 mg/dL (2.5-5.0); Potassium 3.4 mmol/L (3.5-5.0)
[2021-03-03] MEDS ORDERED: Potassium Chloride LIQUID 20 MEQ/15 ML LIQUID PO ONE (06:27)
[2021-03-03] MEDS: Diltiazem (ADVAN VIAL) 100 MG/100 ML ADDV.BAG IV SCH ×2 (07:42→12:57)
[2021-03-03] MEDS: KCL 20 MEQ/100 ML IVPREMIX 20 MEQ/100 ML BAG IV SCH ×2 (07:43→09:56)
[2021-03-03] MEDS: Pantoprazole VIAL 40 MG VIAL IV SCH (07:55)
[2021-03-03] MEDS: Heparin 5000 UNITS/ML 1 mL VIAL SUBCUT SCH ×2 (07:55→20:29)
[2021-03-03] MEDS: levETIRAcetam 1000MG IVPREMIX 1,000 MG/100 ML BAG IVPB SCH ×2 (08:40→20:31)
[2021-03-03] MEDS: Nystatin TOP POWDER 15 GM BTL TOPICAL SCH ×2 (08:41→20:31)
[2021-03-03] MEDS: Multivitamins ADULT w/MIN LIQ 15 ML UDC PO SCH (09:56)
[2021-03-03] MEDS: Linezolid 600 MG IVPREMIX(*) 600 MG/300 ML BAG IVPB SCH (13:41)
[2021-03-03] MEDS ORDERED: Furosemide 40 mg/4 ml IV VIAL IV ONE (13:51)
[2021-03-03] MEDS: Nicotine PATCH 7 MG/24 HR PATCH TRANSDERM SCH (21:08)
[2021-03-03] MEDS ORDERED: Lorazepam PYXIS KEY PRN (23:37)
[2021-03-03] MEDS ORDERED: LORazepam 2 mg VIAL 1 ml IV PUSH ONE (23:37)
[2021-03-03] MEDS ORDERED: LORazepam 2 mg VIAL 1 ml ONE (23:40)
[2021-03-03] MEDS ORDERED: Lorazepam PYXIS KEY ONE (23:40)
[2021-03-04] MEDS: Linezolid 600 MG IVPREMIX(*) 600 MG/300 ML BAG IVPB SCH ×2 (01:00→12:10)
[2021-03-04] MEDS: Diltiazem (ADVAN VIAL) 100 MG/100 ML ADDV.BAG IV SCH (04:31)
[2021-03-04] MEDS: ZOSYN 3.375 GM Q8H per EXTENDED INFUSION IV SCH ×3 (04:33→20:17)
[2021-03-04 05:23] LABS: ABS Eosinophils 0.1 10^3/ul (0-0.6); ABS Lymphocytes 0.6 10^3/ul (1.0-4.8); ABS Monocytes 1.4 10^3/ul (0-0.8); ABS Neutrophils 10.2 10^3/ul (1.5-7.7); Eosinophil % 1.1 %; Hematocrit 27 % (42-52); Hemoglobin 8.7 g/dL (14.0-18.0); Lymphocyte % 4.7 %; Mean Corpuscular HGB Conc 33 g/dL (31-36); Mean Corpuscular Hemoglobin 29 pg (27-31); Mean Corpuscular Volume 88 fL (80-94); Mean Platelet Volume 8.6 fL (7.4-10.4); Platelet Count 488 10^3/uL (150-450); Red Blood Count 3.01 10^6 /uL (4.18-5.48); Red Cell Distribution Width 20 % (10-15); White Blood Count 12.3 10^3/uL (3.5-10.8)
[2021-03-04 05:39] LABS: Calcium 9.3 mg/dL (8.6-10.3); EGFR African American 104.2 (>60); EGFR Non-African American 86.1 (>60); Magnesium 1.7 mg/dL (1.9-2.7); Phosphorus 3.3 mg/dL (2.5-5.0); Potassium 3.5 mmol/L (3.5-5.0)
[2021-03-04] MEDS ORDERED: Furosemide 20 mg/2 ml IV VIAL IV ONE (08:29)
[2021-03-04] MEDS ORDERED: Potassium Phosphate IV 15 MMOLE in NS 0.9% 250 ml 250 ML IVPB ONE (08:30)
[2021-03-04] MEDS ORDERED: Magnesium Sulfate IV 3 GM in NS 0.9% 100 ml BAG 100 ML IVPB ONE (09:00)
[2021-03-04] MEDS: Nystatin TOP POWDER 15 GM BTL TOPICAL SCH ×2 (09:34→20:50)
[2021-03-04] MEDS: Heparin 5000 UNITS/ML 1 mL VIAL SUBCUT SCH ×2 (09:34→20:49)
[2021-03-04] MEDS: Pantoprazole VIAL 40 MG VIAL IV SCH (09:34)
[2021-03-04] MEDS: Nicotine PATCH 7 MG/24 HR PATCH TRANSDERM SCH (09:36)
[2021-03-04] MEDS: levETIRAcetam 1000MG IVPREMIX 1,000 MG/100 ML BAG IVPB SCH ×2 (09:36→20:18)
[2021-03-04] MEDS ORDERED: Dexmedetomidine 1,000 MCG in NS 0.9% 250 ml 240 ML IV SCH (10:00)
[2021-03-04] MEDS: Multivitamins ADULT w/MIN LIQ 15 ML UDC PO SCH (11:23)
[2021-03-05] MEDS: Linezolid 600 MG IVPREMIX(*) 600 MG/300 ML BAG IVPB SCH ×2 (00:09→11:57)
[2021-03-05] MEDS: ZOSYN 3.375 GM Q8H per EXTENDED INFUSION IV SCH ×3 (03:40→20:11)
[2021-03-05 06:17] LABS: ABS Basophils 0.1 10^3/ul (0-0.2); ABS Eosinophils 0.2 10^3/ul (0-0.6); ABS Lymphocytes 0.5 10^3/ul (1.0-4.8); Eosinophil % 1.8 %; Hematocrit 27 % (42-52); Hemoglobin 8.6 g/dL (14.0-18.0); Lymphocyte % 3.6 %; Mean Corpuscular HGB Conc 32 g/dL (31-36); Mean Corpuscular Hemoglobin 29 pg (27-31); Mean Corpuscular Volume 90 fL (80-94); Mean Platelet Volume 8.7 fL (7.4-10.4); Platelet Count 579 10^3/uL (150-450); Red Blood Count 2.97 10^6 /uL (4.18-5.48); Red Cell Distribution Width 20 % (10-15); White Blood Count 12.8 10^3/uL (3.5-10.8)
[2021-03-05 06:40] LABS: Calcium 7.5 mg/dL (8.6-10.3); EGFR African American 119.8 (>60); Magnesium 1.8 mg/dL (1.9-2.7); Phosphorus 2.5 mg/dL (2.5-5.0)
[2021-03-05 06:48] LABS: Potassium 3.6 mmol/L (3.5-5.0)
[2021-03-05] MEDS: levETIRAcetam 1000MG IVPREMIX 1,000 MG/100 ML BAG IVPB SCH ×2 (08:13→20:12)
[2021-03-05] MEDS: Heparin 5000 UNITS/ML 1 mL VIAL SUBCUT SCH ×2 (08:14→21:12)
[2021-03-05] MEDS: Nicotine PATCH 7 MG/24 HR PATCH TRANSDERM SCH (08:14)
[2021-03-05] MEDS: Pantoprazole VIAL 40 MG VIAL IV SCH (08:14)
[2021-03-05] MEDS: Nystatin TOP POWDER 15 GM BTL TOPICAL SCH ×2 (08:15→21:17)
[2021-03-05] MEDS: Multivitamins ADULT w/MIN LIQ 15 ML UDC PO SCH (09:08)
[2021-03-05 11:24] LABS: CO2 Carbon Dioxide 32 mmol/L (22-32); Calcium 9.7 mg/dL (8.6-10.3); Chloride 109 mmol/L (101-111)
[2021-03-05 11:25] LABS: Anion Gap 6 mmol/L (2-11); Sodium 147 mmol/L (135-145)
[2021-03-05 11:30] LABS: Blood Urea Nitrogen 9 mg/dL (6-24); EGFR African American 88.9 (>60); EGFR Non-African American 73.5 (>60); Glucose 115 mg/dL (70-100)
[2021-03-05] MEDS ORDERED: Magnesium Sulfate 2 gm BAG 2 GM/50 ML BAG IVPB ONE (17:42)
[2021-03-05 18:06] LABS: Anti-Glial/Neuronal Nuc Ab-1 A Negative titer (<1:240); Anti-Neuronal Nuclear Ab Type1 Negative titer (<1:240); Anti-Neuronal Nuclear Ab Type2 Negative titer (<1:240); Anti-Neuronal Nuclear Ab Type3 Negative titer (<1:240); CRMP-5 IgG Antibody Negative titer (<1:240); Purkinje Cell Cytoplasm Typ Tr Negative titer (<1:240); Purkinje Cell Cytoplasm Type 1 Negative titer (<1:240); Purkinje Cell Cytoplasm Type 2 Negative titer (<1:240)
[2021-03-06 04:22] LABS: ABS Basophils 0.1 10^3/ul (0-0.2); ABS Eosinophils 0.4 10^3/ul (0-0.6); ABS Lymphocytes 0.8 10^3/ul (1.0-4.8); ABS Monocytes 0.9 10^3/ul (0-0.8); ABS Neutrophils 8.1 10^3/ul (1.5-7.7); Eosinophil % 3.6 %; Hematocrit 29 % (42-52); Hemoglobin 9.1 g/dL (14.0-18.0); Lymphocyte % 7.9 %; Mean Corpuscular HGB Conc 32 g/dL (31-36); Mean Corpuscular Hemoglobin 29 pg (27-31); Mean Corpuscular Volume 90 fL (80-94); Mean Platelet Volume 8.8 fL (7.4-10.4); Platelet Count 563 10^3/uL (150-450); Red Blood Count 3.17 10^6 /uL (4.18-5.48); Red Cell Distribution Width 20 % (10-15); White Blood Count 10.2 10^3/uL (3.5-10.8)
[2021-03-06 04:45] LABS: Calcium 9.2 mg/dL (8.6-10.3); EGFR African American 73.6 (>60); EGFR Non-African American 60.8 (>60); Magnesium 2.4 mg/dL (1.9-2.7); Phosphorus 3.1 mg/dL (2.5-5.0); Potassium 3.5 mmol/L (3.5-5.0)
[2021-03-06] MEDS: ZOSYN 3.375 GM Q8H per EXTENDED INFUSION IV SCH ×3 (05:09→19:56)
[2021-03-06] MEDS: Pantoprazole VIAL 40 MG VIAL IV SCH (08:46)
[2021-03-06] MEDS: Heparin 5000 UNITS/ML 1 mL VIAL SUBCUT SCH ×2 (08:46→21:05)
[2021-03-06] MEDS: levETIRAcetam 1000MG IVPREMIX 1,000 MG/100 ML BAG IVPB SCH ×2 (08:46→20:57)
[2021-03-06] MEDS: KCL 20 MEQ/100 ML IVPREMIX 20 MEQ/100 ML BAG IV SCH ×2 (08:46→12:22)
[2021-03-06] MEDS: Nystatin TOP POWDER 15 GM BTL TOPICAL SCH ×2 (08:47→21:07)
[2021-03-06] MEDS: Nicotine PATCH 7 MG/24 HR PATCH TRANSDERM SCH (09:02)
[2021-03-06] MEDS: Multivitamins/Minerals TAB PO SCH (09:09)
[2021-03-06] MEDS ORDERED: Albuterol/Ipratropium NEB.SOL (2.5/0.5 MG) 3 ML NEB.SOLN INH ONE (09:25)
[2021-03-06] MEDS ORDERED: Sodium Chloride(INHALANT) 3% 4 ML NEB.SOLN INH ONE ×2 (09:25→15:00)
[2021-03-06] MEDS: Albuterol/Ipratropium NEB.SOL (2.5/0.5 MG) 3 ML NEB.SOLN INH SCH ×4 (10:28→22:55)
[2021-03-07] MEDS: Albuterol/Ipratropium NEB.SOL (2.5/0.5 MG) 3 ML NEB.SOLN INH SCH ×6 (03:12→23:06)
[2021-03-07] MEDS: ZOSYN 3.375 GM Q8H per EXTENDED INFUSION IV SCH ×3 (04:41→21:10)
[2021-03-07 05:00] LABS: ABS Basophils 0.1 10^3/ul (0-0.2); ABS Eosinophils 0.4 10^3/ul (0-0.6); ABS Lymphocytes 1.1 10^3/ul (1.0-4.8); ABS Monocytes 0.8 10^3/ul (0-0.8); ABS Neutrophils 7.2 10^3/ul (1.5-7.7); Eosinophil % 4.5 %; Hematocrit 26 % (42-52); Hemoglobin 8.2 g/dL (14.0-18.0); Lymphocyte % 11.1 %; Mean Corpuscular HGB Conc 32 g/dL (31-36); Mean Corpuscular Hemoglobin 29 pg (27-31); Mean Corpuscular Volume 90 fL (80-94); Mean Platelet Volume 8.9 fL (7.4-10.4); Platelet Count 526 10^3/uL (150-450); Red Blood Count 2.83 10^6 /uL (4.18-5.48); Red Cell Distribution Width 20 % (10-15); White Blood Count 9.5 10^3/uL (3.5-10.8)
[2021-03-07 05:20] LABS: EGFR African American 68.9 (>60); EGFR Non-African American 56.9 (>60); Magnesium 2.2 mg/dL (1.9-2.7); Phosphorus 2.8 mg/dL (2.5-5.0); Potassium 3.7 mmol/L (3.5-5.0)
[2021-03-07] MEDS: KCL 20 MEQ/100 ML IVPREMIX 20 MEQ/100 ML BAG IV SCH ×2 (07:45→09:53)
[2021-03-07] MEDS ORDERED: Benzocaine/Butamben/Tetracain (CETACAINE - SINGLE USE) 5 gm TOPICAL ONE (09:47)
[2021-03-07] MEDS ORDERED: Acetylcysteine INHALATION SOL 200 MG/ML NEB.SOLN 10 ML INH ONE (09:47)
[2021-03-07] MEDS: Nicotine PATCH 7 MG/24 HR PATCH TRANSDERM SCH (09:50)
[2021-03-07] MEDS: levETIRAcetam 1000MG IVPREMIX 1,000 MG/100 ML BAG IVPB SCH ×2 (09:50→21:10)
[2021-03-07] MEDS: Nystatin TOP POWDER 15 GM BTL TOPICAL SCH ×2 (09:51→21:10)
[2021-03-07] MEDS ORDERED: Midazolam 5 mg/5 ml VIAL 1 mg/ml 5 ml VIAL (5 mg) ONE (15:17)
[2021-03-07] MEDS ORDERED: fentaNYL 100 mcg/2 ml 50 MCG/ML VIAL ONE ×2 (15:17→15:26)
[2021-03-07] MEDS ORDERED: Lidocaine 1% VIAL 10 MG/ML VIAL ONE (15:30)
[2021-03-07] MEDS: Multivitamins/Minerals TAB PO SCH (16:41)
[2021-03-07] MEDS: Heparin 5000 UNITS/ML 1 mL VIAL SUBCUT SCH ×2 (16:45→21:10)
[2021-03-08] MEDS: Albuterol/Ipratropium NEB.SOL (2.5/0.5 MG) 3 ML NEB.SOLN INH SCH ×6 (03:11→23:49)
[2021-03-08] MEDS: ZOSYN 3.375 GM Q8H per EXTENDED INFUSION IV SCH (04:46)
[2021-03-08 05:56] LABS: ABS Basophils 0.1 10^3/ul (0-0.2); ABS Eosinophils 0.4 10^3/ul (0-0.6); ABS Monocytes 0.6 10^3/ul (0-0.8); ABS Neutrophils 6.6 10^3/ul (1.5-7.7); Eosinophil % 4.5 %; Hematocrit 24 % (42-52); Hemoglobin 7.7 g/dL (14.0-18.0); Lymphocyte % 11.3 %; Mean Corpuscular HGB Conc 32 g/dL (31-36); Mean Corpuscular Hemoglobin 29 pg (27-31); Mean Corpuscular Volume 90 fL (80-94); Mean Platelet Volume 8.6 fL (7.4-10.4); Platelet Count 510 10^3/uL (150-450); Red Blood Count 2.69 10^6 /uL (4.18-5.48); Red Cell Distribution Width 20 % (10-15); White Blood Count 8.7 10^3/uL (3.5-10.8)
[2021-03-08 06:13] LABS: Calcium 9.1 mg/dL (8.6-10.3); EGFR African American 76.5 (>60); EGFR Non-African American 63.2 (>60); Potassium 4.1 mmol/L (3.5-5.0)
[2021-03-08] MEDS: levETIRAcetam 1000MG IVPREMIX 1,000 MG/100 ML BAG IVPB SCH ×2 (09:28→20:05)
[2021-03-08] MEDS: Heparin 5000 UNITS/ML 1 mL VIAL SUBCUT SCH ×2 (09:33→20:09)
[2021-03-08] MEDS: Nystatin TOP POWDER 15 GM BTL TOPICAL SCH ×2 (09:34→20:09)
[2021-03-08] MEDS: Nicotine PATCH 7 MG/24 HR PATCH TRANSDERM SCH (09:34)
[2021-03-08] MEDS: Multivitamins/Minerals TAB PO SCH (09:35)
[2021-03-08 13:09] LABS: Hematocrit 29 % (42-52); Hemoglobin 9.1 g/dL (14.0-18.0)
[2021-03-08] MEDS ORDERED: Buffered Lidocaine 1% SYRIN 1 ml INTRADERM ONE (14:25)
[2021-03-08] MEDS: Saline FLUSH-CENTRAL 10 ML SYRINGE CENT\\PICC SCH (20:09)
[2021-03-09] MEDS: Albuterol/Ipratropium NEB.SOL (2.5/0.5 MG) 3 ML NEB.SOLN INH SCH ×6 (03:43→23:04)
[2021-03-09] MEDS ORDERED: hydrALAZINE 20 mg/ml 1 ML Vial IV IV SLOW PU PRN (04:05)
[2021-03-09 04:57] LABS: ABS Basophils 0.1 10^3/ul (0-0.2); ABS Eosinophils 0.5 10^3/ul (0-0.6); ABS Lymphocytes 1.2 10^3/ul (1.0-4.8); ABS Monocytes 0.9 10^3/ul (0-0.8); ABS Neutrophils 7.7 10^3/ul (1.5-7.7); Eosinophil % 4.8 %; Hematocrit 25 % (42-52); Hemoglobin 8.1 g/dL (14.0-18.0); Lymphocyte % 11.2 %; Mean Corpuscular HGB Conc 33 g/dL (31-36); Mean Corpuscular Hemoglobin 29 pg (27-31); Mean Corpuscular Volume 89 fL (80-94); Mean Platelet Volume 8.7 fL (7.4-10.4); Platelet Count 593 10^3/uL (150-450); Red Blood Count 2.75 10^6 /uL (4.18-5.48); Red Cell Distribution Width 20 % (10-15); White Blood Count 10.4 10^3/uL (3.5-10.8)
[2021-03-09 05:13] LABS: Calcium 9.9 mg/dL (8.6-10.3); EGFR African American 78.9 (>60); EGFR Non-African American 65.2 (>60); Magnesium 1.9 mg/dL (1.9-2.7); Phosphorus 2.5 mg/dL (2.5-5.0); Potassium 4.3 mmol/L (3.5-5.0)
[2021-03-09] MEDS ORDERED: Magnesium Sulfate 2 gm BAG 2 GM/50 ML BAG IVPB ONE (07:25)
[2021-03-09] MEDS ORDERED: Furosemide 40 mg/4 ml IV VIAL IV ONE (07:42)
[2021-03-09] MEDS: Nystatin TOP POWDER 15 GM BTL TOPICAL SCH ×2 (08:26→20:03)
[2021-03-09] MEDS: Multivitamins/Minerals TAB PO SCH (08:26)
[2021-03-09] MEDS: Heparin 5000 UNITS/ML 1 mL VIAL SUBCUT SCH ×2 (08:26→20:02)
[2021-03-09] MEDS: Saline FLUSH-CENTRAL 10 ML SYRINGE CENT\\PICC SCH ×2 (08:27→20:25)
[2021-03-09] MEDS: levETIRAcetam 1000MG IVPREMIX 1,000 MG/100 ML BAG IVPB SCH ×2 (09:39→19:59)
[2021-03-09] MEDS: Nicotine PATCH 7 MG/24 HR PATCH TRANSDERM SCH (10:34)
[2021-03-10] MEDS: Albuterol/Ipratropium NEB.SOL (2.5/0.5 MG) 3 ML NEB.SOLN INH SCH ×6 (03:05→23:10)
[2021-03-10 06:21] LABS: ABS Basophils 0.2 10^3/ul (0-0.2); ABS Eosinophils 0.5 10^3/ul (0-0.6); ABS Lymphocytes 1.1 10^3/ul (1.0-4.8); ABS Monocytes 0.7 10^3/ul (0-0.8); ABS Neutrophils 6.2 10^3/ul (1.5-7.7); Eosinophil % 5.5 %; Hematocrit 24 % (42-52); Lymphocyte % 12.3 %; Mean Corpuscular HGB Conc 34 g/dL (31-36); Mean Corpuscular Hemoglobin 30 pg (27-31); Mean Corpuscular Volume 89 fL (80-94); Mean Platelet Volume 8.6 fL (7.4-10.4); Platelet Count 642 10^3/uL (150-450); Red Blood Count 2.64 10^6 /uL (4.18-5.48); Red Cell Distribution Width 20 % (10-15); White Blood Count 8.6 10^3/uL (3.5-10.8)
[2021-03-10 06:50] LABS: Blood Urea Nitrogen 13 mg/dL (6-24); CO2 Carbon Dioxide 38 mmol/L (22-32); Calcium 9.7 mg/dL (8.6-10.3); Chloride 102 mmol/L (101-111); EGFR African American 86.9 (>60); EGFR Non-African American 71.8 (>60); Glucose 107 mg/dL (70-100); Sodium 143 mmol/L (135-145)
[2021-03-10 06:56] LABS: Anion Gap 3 mmol/L (2-11)
[2021-03-10] MEDS: levETIRAcetam 1000MG IVPREMIX 1,000 MG/100 ML BAG IVPB SCH ×2 (08:51→20:19)
[2021-03-10] MEDS: Multivitamins/Minerals TAB PO SCH (08:51)
[2021-03-10] MEDS: Nicotine PATCH 7 MG/24 HR PATCH TRANSDERM SCH (08:51)
[2021-03-10] MEDS: Heparin 5000 UNITS/ML 1 mL VIAL SUBCUT SCH ×2 (08:52→20:13)
[2021-03-10] MEDS: Nystatin TOP POWDER 15 GM BTL TOPICAL SCH ×2 (08:52→20:22)
[2021-03-10] MEDS: Saline FLUSH-CENTRAL 10 ML SYRINGE CENT\\PICC SCH ×2 (08:52→20:17)
[2021-03-10] MEDS: Metoprolol Tartrate 5 mg VIAL 5 ml VIAL (1 mg/ml) IV PRN (18:34)
[2021-03-10] MEDS ORDERED: Diltiazem IV push/loading dose 5 MG/ML 5 ML vial (25 mg) IV SLOW PU ONE (18:47)
[2021-03-10] MEDS: Metoprolol Tartrate 5 mg VIAL 5 ml VIAL (1 mg/ml) IV ONE ×2 (19:55→21:34)
[2021-03-10] MEDS ORDERED: Digoxin IV 0.5 MG/2 ML AMP (0.25 MG/ML) ONE (20:02)
[2021-03-10] MEDS ORDERED: Amiodarone 150 mg IVPREMIX 150 MG/100 ML BAG IV ONE (21:35)
[2021-03-10] MEDS: Mometasone/Formoter 100/5 MDI INH SCH (21:36)
[2021-03-10 22:26] LABS: PCO2 Arterial 64 mmHg (35-45); PO2 Arterial 115 mmHg (80-100)
[2021-03-10 22:29] LABS: Troponin I 0.03 ng/mL (<0.03)
[2021-03-10] MEDS ORDERED: Magnesium Sulfate 2 gm BAG 2 GM/50 ML BAG IVPB ONE (22:33)
[2021-03-11] MEDS: Albuterol/Ipratropium NEB.SOL (2.5/0.5 MG) 3 ML NEB.SOLN INH SCH ×2 (03:00→07:28)
[2021-03-11] MEDS: Mometasone/Formoter 100/5 MDI INH SCH (07:28)
[2021-03-11 07:55] LABS: Troponin I 0.17 ng/mL (<0.03)
[2021-03-11] MEDS: levETIRAcetam 1000MG IVPREMIX 1,000 MG/100 ML BAG IVPB SCH ×2 (09:17→20:53)
[2021-03-11] MEDS: Heparin 5000 UNITS/ML 1 mL VIAL SUBCUT SCH ×2 (09:17→20:53)
[2021-03-11] MEDS: Nystatin TOP POWDER 15 GM BTL TOPICAL SCH ×2 (09:17→20:54)
[2021-03-11] MEDS: Nicotine PATCH 7 MG/24 HR PATCH TRANSDERM SCH (09:18)
[2021-03-11] MEDS: Saline FLUSH-CENTRAL 10 ML SYRINGE CENT\\PICC SCH ×2 (09:18→20:54)
[2021-03-11] MEDS: Multivitamins/Minerals TAB PO SCH (09:18)
[2021-03-11] MEDS: SPIRIVA Respimat (tiotropium) 2.5 mcg/inh Inhaler INH SCH (13:48)
[2021-03-11 15:18] LABS: Troponin I 0.12 ng/mL (<0.03)
[2021-03-12] MEDS: SPIRIVA Respimat (tiotropium) 2.5 mcg/inh Inhaler INH SCH (07:09)
[2021-03-12] MEDS: Budesonide NEB 0.5 MG/2 ML NEB.SOLN INH SCH ×2 (07:09→20:07)
[2021-03-12] MEDS: Multivitamins/Minerals TAB PO SCH (07:52)
[2021-03-12] MEDS: Heparin 5000 UNITS/ML 1 mL VIAL SUBCUT SCH ×2 (07:54→19:53)
[2021-03-12] MEDS: Saline FLUSH-CENTRAL 10 ML SYRINGE CENT\\PICC SCH ×2 (08:57→22:31)
[2021-03-12] MEDS: Nicotine PATCH 7 MG/24 HR PATCH TRANSDERM SCH (08:57)
[2021-03-12] MEDS: Nystatin TOP POWDER 15 GM BTL TOPICAL SCH ×2 (08:57→19:54)
[2021-03-13] MEDS: Budesonide NEB 0.5 MG/2 ML NEB.SOLN INH SCH ×2 (08:09→20:53)
[2021-03-13] MEDS: SPIRIVA Respimat (tiotropium) 2.5 mcg/inh Inhaler INH SCH (08:10)
[2021-03-13] MEDS: Nicotine PATCH 7 MG/24 HR PATCH TRANSDERM SCH (08:22)
[2021-03-13] MEDS: Heparin 5000 UNITS/ML 1 mL VIAL SUBCUT SCH ×2 (08:23→20:47)
[2021-03-13] MEDS: Multivitamins/Minerals TAB PO SCH (08:24)
[2021-03-13] MEDS: Nystatin TOP POWDER 15 GM BTL TOPICAL SCH ×2 (08:28→20:56)
[2021-03-13] MEDS: Saline FLUSH-CENTRAL 10 ML SYRINGE CENT\\PICC SCH ×2 (08:29→20:56)
[2021-03-13 18:25] LABS: Troponin I 0.06 ng/mL (<0.03)
[2021-03-13 22:24] LABS: Troponin I 0.06 ng/mL (<0.03)
[2021-03-14 05:52] LABS: ABS Basophils 0.1 10^3/ul (0-0.2); ABS Eosinophils 0.5 10^3/ul (0-0.6); ABS Lymphocytes 1.1 10^3/ul (1.0-4.8); ABS Monocytes 0.9 10^3/ul (0-0.8); ABS Neutrophils 6.9 10^3/ul (1.5-7.7); Eosinophil % 5.6 %; Hematocrit 25 % (42-52); Hemoglobin 8.1 g/dL (14.0-18.0); Lymphocyte % 11.2 %; Mean Corpuscular HGB Conc 33 g/dL (31-36); Mean Corpuscular Hemoglobin 29 pg (27-31); Mean Corpuscular Volume 88 fL (80-94); Mean Platelet Volume 9.3 fL (7.4-10.4); Platelet Count 510 10^3/uL (150-450); Red Blood Count 2.79 10^6 /uL (4.18-5.48); Red Cell Distribution Width 19 % (10-15); White Blood Count 9.5 10^3/uL (3.5-10.8)
[2021-03-14 06:48] LABS: Albumin 2.7 g/dL (3.2-5.2); Calcium 9.7 mg/dL (8.6-10.3); Potassium 3.7 mmol/L (3.5-5.0); Total Bilirubin 0.2 mg/dL (0.2-1.0)
[2021-03-14 06:54] LABS: Albumin/Globulin Ratio 0.9 (1-3); EGFR African American 81.4 (>60); EGFR Non-African American 67.3 (>60); Globulin 3.1 g/dL (2-4); Total Protein 5.8 g/dL (6.4-8.9)
[2021-03-14] MEDS: Budesonide NEB 0.5 MG/2 ML NEB.SOLN INH SCH ×2 (07:42→19:00)
[2021-03-14] MEDS: SPIRIVA Respimat (tiotropium) 2.5 mcg/inh Inhaler INH SCH (07:43)
[2021-03-14] MEDS: Nicotine PATCH 7 MG/24 HR PATCH TRANSDERM SCH (09:14)
[2021-03-14] MEDS: Multivitamins/Minerals TAB PO SCH (09:15)
[2021-03-14] MEDS: Heparin 5000 UNITS/ML 1 mL VIAL SUBCUT SCH ×2 (09:16→20:59)
[2021-03-14] MEDS: Saline FLUSH-CENTRAL 10 ML SYRINGE CENT\\PICC SCH ×2 (09:17→21:05)
[2021-03-15] MEDS: Nicotine PATCH 7 MG/24 HR PATCH TRANSDERM SCH (09:34)
[2021-03-15] MEDS: Heparin 5000 UNITS/ML 1 mL VIAL SUBCUT SCH ×2 (09:35→21:36)
[2021-03-15] MEDS: Multivitamins/Minerals TAB PO SCH (09:35)
[2021-03-15] MEDS: Saline FLUSH-CENTRAL 10 ML SYRINGE CENT\\PICC SCH ×2 (09:36→21:36)
[2021-03-15 09:45] LABS: PCO2 Arterial 52 mmHg (35-45); PO2 Arterial 64 mmHg (80-100)
[2021-03-15] MEDS: Budesonide NEB 0.5 MG/2 ML NEB.SOLN INH SCH ×2 (09:55→19:49)
[2021-03-15] MEDS: SPIRIVA Respimat (tiotropium) 2.5 mcg/inh Inhaler INH SCH (09:57)
[2021-03-15 15:27] LABS: ABS Basophils 0.1 10^3/ul (0-0.2); ABS Eosinophils 0.4 10^3/ul (0-0.6); ABS Lymphocytes 1.1 10^3/ul (1.0-4.8); ABS Neutrophils 6.7 10^3/ul (1.5-7.7); Eosinophil % 4.2 %; Hematocrit 27 % (42-52); Hemoglobin 8.6 g/dL (14.0-18.0); Lymphocyte % 11.8 %; Mean Corpuscular HGB Conc 32 g/dL (31-36); Mean Corpuscular Hemoglobin 28 pg (27-31); Mean Corpuscular Volume 88 fL (80-94); Mean Platelet Volume 8.7 fL (7.4-10.4); Nucleated Red Blood Cells % 0.1; Platelet Count 531 10^3/uL (150-450); Red Blood Count 3.09 10^6 /uL (4.18-5.48); Red Cell Distribution Width 19 % (10-15); White Blood Count 9.3 10^3/uL (3.5-10.8)
[2021-03-15 16:07] LABS: Albumin/Globulin Ratio 0.9 (1-3); Calcium 9.8 mg/dL (8.6-10.3); Globulin 3.5 g/dL (2-4); Potassium 4.1 mmol/L (3.5-5.0); Total Bilirubin 0.2 mg/dL (0.2-1.0); Total Protein 6.5 g/dL (6.4-8.9)
[2021-03-16 06:33] LABS: ABS Basophils 0.1 10^3/ul (0-0.2); ABS Eosinophils 0.5 10^3/ul (0-0.6); ABS Lymphocytes 1.2 10^3/ul (1.0-4.8); ABS Monocytes 0.8 10^3/ul (0-0.8); ABS Neutrophils 3.8 10^3/ul (1.5-7.7); Eosinophil % 7.4 %; Hematocrit 24 % (42-52); Hemoglobin 7.8 g/dL (14.0-18.0); Lymphocyte % 19.2 %; Mean Corpuscular HGB Conc 33 g/dL (31-36); Mean Corpuscular Hemoglobin 29 pg (27-31); Mean Corpuscular Volume 86 fL (80-94); Mean Platelet Volume 9.4 fL (7.4-10.4); Nucleated Red Blood Cells % 0.1; Platelet Count 470 10^3/uL (150-450); Red Blood Count 2.73 10^6 /uL (4.18-5.48); Red Cell Distribution Width 19 % (10-15); White Blood Count 6.3 10^3/uL (3.5-10.8)
[2021-03-16 06:51] LABS: Calcium 9.6 mg/dL (8.6-10.3); Potassium 3.7 mmol/L (3.5-5.0)
[2021-03-16] MEDS: Budesonide NEB 0.5 MG/2 ML NEB.SOLN INH SCH ×2 (07:32→19:58)
[2021-03-16] MEDS: SPIRIVA Respimat (tiotropium) 2.5 mcg/inh Inhaler INH SCH (07:32)
[2021-03-16] MEDS: Multivitamins/Minerals TAB PO SCH (09:19)
[2021-03-16] MEDS: Heparin 5000 UNITS/ML 1 mL VIAL SUBCUT SCH ×2 (09:22→20:00)
[2021-03-16] MEDS: Nicotine PATCH 7 MG/24 HR PATCH TRANSDERM SCH (09:23)
[2021-03-16] MEDS: Saline FLUSH-CENTRAL 10 ML SYRINGE CENT\\PICC SCH ×2 (09:44→16:38)
[2021-03-16] MEDS: Acetylcysteine INHALATION SOL 200 MG/ML NEB.SOLN 10 ML INH SCH (19:57)
[2021-03-16] MEDS: Albuterol/Ipratropium NEB.SOL (2.5/0.5 MG) 3 ML NEB.SOLN INH PRN (19:58)
[2021-03-17 04:49] LABS: ABS Basophils 0.1 10^3/ul (0-0.2); ABS Eosinophils 0.5 10^3/ul (0-0.6); ABS Lymphocytes 1.5 10^3/ul (1.0-4.8); ABS Monocytes 0.9 10^3/ul (0-0.8); Eosinophil % 7.4 %; Hematocrit 24 % (42-52); Hemoglobin 7.6 g/dL (14.0-18.0); Lymphocyte % 21.2 %; Mean Corpuscular HGB Conc 32 g/dL (31-36); Mean Corpuscular Hemoglobin 28 pg (27-31); Mean Corpuscular Volume 87 fL (80-94); Mean Platelet Volume 9.2 fL (7.4-10.4); Platelet Count 500 10^3/uL (150-450); Red Blood Count 2.78 10^6 /uL (4.18-5.48); Red Cell Distribution Width 19 % (10-15)
[2021-03-17] MEDS: Saline FLUSH-CENTRAL 10 ML SYRINGE CENT\\PICC SCH ×2 (05:06→18:34)
[2021-03-17 05:11] LABS: Anion Gap 4 mmol/L (2-11); Blood Urea Nitrogen 25 mg/dL (6-24); CO2 Carbon Dioxide 38 mmol/L (22-32); Calcium 9.7 mg/dL (8.6-10.3); Chloride 100 mmol/L (101-111); EGFR African American 73.6 (>60); EGFR Non-African American 60.8 (>60); Glucose 90 mg/dL (70-100); Magnesium 1.8 mg/dL (1.9-2.7); Potassium 3.9 mmol/L (3.5-5.0); Sodium 142 mmol/L (135-145)
[2021-03-17] MEDS: Budesonide NEB 0.5 MG/2 ML NEB.SOLN INH SCH ×2 (07:01→19:15)
[2021-03-17] MEDS: Acetylcysteine INHALATION SOL 200 MG/ML NEB.SOLN 10 ML INH SCH ×2 (07:02→19:18)
[2021-03-17] MEDS: Albuterol/Ipratropium NEB.SOL (2.5/0.5 MG) 3 ML NEB.SOLN INH PRN ×2 (07:02→19:15)
[2021-03-17] MEDS: SPIRIVA Respimat (tiotropium) 2.5 mcg/inh Inhaler INH SCH (07:03)
[2021-03-17] MEDS: Heparin 5000 UNITS/ML 1 mL VIAL SUBCUT SCH ×2 (09:20→20:44)
[2021-03-17] MEDS: Nicotine PATCH 7 MG/24 HR PATCH TRANSDERM SCH (09:20)
[2021-03-17] MEDS: Multivitamins/Minerals TAB PO SCH (09:21)
[2021-03-17 10:47] LABS: Corrected Retic Count 0.7 % (0.5-1.5); Hematocrit for Retic CNT 24 % (42-52); Immature Retic Fraction 0.61; RBC Retic Count 2.73 10^6/uL (4.18-5.48)
[2021-03-17 10:50] LABS: % Iron Saturation 11 % (15-55); Iron 28 ug/dL (50-212); Total Iron Binding Capacity 249 mcg/dL (250-450); Transferrin 178 mg/dL (203-362); Unsaturated Iron Binding < 234 ug/dL
[2021-03-17 11:10] LABS: Ferritin 747.7 ng/mL (24-336)
[2021-03-18] MEDS: Saline FLUSH-CENTRAL 10 ML SYRINGE CENT\\PICC SCH ×2 (05:15→16:40)
[2021-03-18] MEDS: SPIRIVA Respimat (tiotropium) 2.5 mcg/inh Inhaler INH SCH (07:22)
[2021-03-18] MEDS: Budesonide NEB 0.5 MG/2 ML NEB.SOLN INH SCH ×2 (07:22→19:11)
[2021-03-18] MEDS: Acetylcysteine INHALATION SOL 200 MG/ML NEB.SOLN 10 ML INH SCH ×2 (07:22→19:10)
[2021-03-18] MEDS: Nicotine PATCH 7 MG/24 HR PATCH TRANSDERM SCH (09:25)
[2021-03-18] MEDS: Heparin 5000 UNITS/ML 1 mL VIAL SUBCUT SCH ×2 (09:26→21:46)
[2021-03-18] MEDS: Multivitamins/Minerals TAB PO SCH (09:30)
[2021-03-18] MEDS: Albuterol/Ipratropium NEB.SOL (2.5/0.5 MG) 3 ML NEB.SOLN INH PRN (19:11)
[2021-03-19] MEDS: Saline FLUSH-CENTRAL 10 ML SYRINGE CENT\\PICC SCH ×2 (05:19→15:48)
[2021-03-19 06:42] LABS: ABS Basophils 0.1 10^3/ul (0-0.2); ABS Eosinophils 0.7 10^3/ul (0-0.6); ABS Lymphocytes 1.6 10^3/ul (1.0-4.8); ABS Monocytes 0.8 10^3/ul (0-0.8); ABS Neutrophils 4.2 10^3/ul (1.5-7.7); Eosinophil % 9.7 %; Hematocrit 25 % (42-52); Hemoglobin 8.1 g/dL (14.0-18.0); Mean Corpuscular HGB Conc 32 g/dL (31-36); Mean Corpuscular Hemoglobin 28 pg (27-31); Mean Corpuscular Volume 87 fL (80-94); Platelet Count 490 10^3/uL (150-450); Red Blood Count 2.91 10^6 /uL (4.18-5.48); Red Cell Distribution Width 19 % (10-15); White Blood Count 7.4 10^3/uL (3.5-10.8)
[2021-03-19 07:01] LABS: Calcium 9.7 mg/dL (8.6-10.3); EGFR Non-African American 55.4 (>60); Magnesium 1.9 mg/dL (1.9-2.7); Potassium 3.6 mmol/L (3.5-5.0)
[2021-03-19] MEDS: Nicotine PATCH 7 MG/24 HR PATCH TRANSDERM SCH (08:32)
[2021-03-19] MEDS: Heparin 5000 UNITS/ML 1 mL VIAL SUBCUT SCH ×2 (08:32→21:28)
[2021-03-19] MEDS: Multivitamins/Minerals TAB PO SCH (08:33)
[2021-03-19] MEDS ORDERED: Potassium Chlor 20 meq TAB.ER PO ONE (08:34)
[2021-03-19] MEDS: Albuterol/Ipratropium NEB.SOL (2.5/0.5 MG) 3 ML NEB.SOLN INH PRN (09:13)
[2021-03-19] MEDS: Acetylcysteine INHALATION SOL 200 MG/ML NEB.SOLN 10 ML INH SCH (09:13)
[2021-03-19] MEDS: SPIRIVA Respimat (tiotropium) 2.5 mcg/inh Inhaler INH SCH (09:14)
[2021-03-19] MEDS: Budesonide NEB 0.5 MG/2 ML NEB.SOLN INH SCH ×2 (09:15→19:58)
[2021-03-19] MEDS ORDERED: Acetylcysteine INHALATION SOL 200 MG/ML NEB.SOLN 10 ML INH PRN (17:18)
[2021-03-20] MEDS: Saline FLUSH-CENTRAL 10 ML SYRINGE CENT\\PICC SCH (07:02)
[2021-03-20] MEDS: SPIRIVA Respimat (tiotropium) 2.5 mcg/inh Inhaler INH SCH (08:07)
[2021-03-20] MEDS: Nicotine PATCH 7 MG/24 HR PATCH TRANSDERM SCH (08:17)
[2021-03-20] MEDS: Multivitamins/Minerals TAB PO SCH (08:17)
[2021-03-20] MEDS: Heparin 5000 UNITS/ML 1 mL VIAL SUBCUT SCH (08:19)
[2021-03-20 11:23] VITALS: BP 116/52
[2021-03-20] MEDS: Budesonide NEB 0.5 MG/2 ML NEB.SOLN INH SCH (12:34)
== END 2021-03-20 13:21 | DRG 896 ==
LOC: ED 16:59 → MEDTELE 23:33 → ICU 02-23 13:25 → MEDTELE 03-12 09:39
PROVIDERS: ADMIT Internal Medicine; ATTEND Internal Medicine

== ENCOUNTER 2023-08-03 10:54 | Inpatient (IN) ==
[2023-08-03 12:24] LABS: Hematocrit 22.5 % (38-53); Hemoglobin 7.7 g/dL (13.2-16.3); Mean Corpuscular Hemoglobin 30.5 pg (27-33); Mean Corpuscular Hgb Conc 34.2 g/dL (31-36); Mean Corpuscular Volume 89.3 fL (80-97); Mean Platelet Volume 8.6 fL (7.5-11.2); Platelet Count 119 10^3/uL (150-450); Red Blood Count 2.52 10^6/uL (4.06-5.63); Red Cell Distribution Width 18.2 % (12-17); White Blood Count 2.9 10^3/uL (3.6-10.2)
[2023-08-03 12:47] LABS: Albumin 3.3 g/dL (3.2-5.2); Albumin/Globulin Ratio 1.3 (1-3); Calcium 9.5 mg/dL (8.6-10.3); Creatinine, Serum 1.46 mg/dL (0.67-1.17); Globulin 2.6 g/dL (2-4); Potassium 4.4 mmol/L (3.5-5.0); Total Bilirubin 0.3 mg/dL (0.2-1.0); Total Protein 5.9 g/dL (6.4-8.9); eGFR CKD-EPI 51.4 (>60)
[2023-08-03 12:59] LABS: ABS Lymphocytes 0.3 10^3/uL (1.0-4.8); ABS Monocytes 1.1 10^3/uL (0.0-1.1); ABS Neutrophils 1.5 10^3/uL (1.5-7.6); ABS Nucleated RBC 0.01 10^3/ul; Eosinophil % 0.2 %; Nucleated Red Blood Cells % 0.2 %/100WBC (0.0-0.8); RBC Morphology Normal (Normal)
[2023-08-03] MEDS ORDERED: Iodixanol (CONTRAST) 320 MG/ML 100 ML SDV IV ONE (13:03)
[2023-08-03] MEDS ORDERED: Lactated Ringers 1000 ml BAG 1,000 ML IV ONE (14:14)
[2023-08-03] MEDS ORDERED: NS 0.9% 1000 ml BAG 1,000 ML IV ONE (14:51)
[2023-08-03] MEDS ORDERED: Cefepime 2 GM in Dextrose 2 GM/50 ML BAG IV ONE (14:53)
[2023-08-03] MEDS ORDERED: Vancomycin 1,250 MG in NS 0.9% 250 ml 250 ML IVPB ONE (15:00)
[2023-08-03 18:00] LABS: Erythrocyte Sed Rate 83 mm/Hr (0-19)
[2023-08-03] MEDS ORDERED: Albuterol HFA INHALER 8 gm MDI INH PRN (18:18)
[2023-08-03 18:41] LABS: C Reactive Protein 125.6 mg/L (<8.01)
[2023-08-03] MEDS ORDERED: Ondansetron ODT 4 mg TAB 4 MG TAB PO PRN (19:06)
[2023-08-03 19:19] LABS: INR 1.05 (0.83-1.13)
[2023-08-03] MEDS ORDERED: Vancomycin per Pharmacy 1 EA NOTE FOLLOW UP SCH (20:00)
[2023-08-04] MEDS ORDERED: NS 0.9% 1000 ml BAG 1,000 ML IV ONE (02:02)
[2023-08-04] MEDS ORDERED: Cefepime 2 GM in Dextrose 2 GM/50 ML BAG IV SCH (06:00)
[2023-08-04] MEDS ORDERED: Vancomycin 750 MG in NS 0.9% 250 ML IVPB SCH ×2 (06:00→18:00)
[2023-08-04 06:04] LABS: Hematocrit 22.2 % (38-53); Hemoglobin 7.6 g/dL (13.2-16.3); Mean Corpuscular Hemoglobin 30.5 pg (27-33); Mean Corpuscular Hgb Conc 34.1 g/dL (31-36); Mean Corpuscular Volume 89.2 fL (80-97); Mean Platelet Volume 8.9 fL (7.5-11.2); Platelet Count 126 10^3/uL (150-450); Red Blood Count 2.48 10^6/uL (4.06-5.63); Red Cell Distribution Width 17.6 % (12-17); White Blood Count 3.4 10^3/uL (3.6-10.2)
[2023-08-04 06:28] LABS: Calcium 8.9 mg/dL (8.6-10.3); Creatinine, Serum 1.55 mg/dL (0.67-1.17); Magnesium 1.7 mg/dL (1.9-2.7); Potassium 4.2 mmol/L (3.5-5.0); eGFR CKD-EPI 47.9 (>60)
[2023-08-04] MEDS ORDERED: Magnesium Sulf 4 GM/100 ML IV 4,000 MG/100 ML BAG IVPB ONE (07:12)
[2023-08-04] MEDS: Multivitamins/Minerals TAB PO SCH (08:27)
[2023-08-04 09:17] LABS: ABS Basophils 0.1 10^3/uL (0.0-0.1); ABS Lymphocytes 0.5 10^3/uL (1.0-4.8); ABS Neutrophils 1.8 10^3/uL (1.5-7.6); ABS Nucleated RBC 0.01 10^3/ul; Anisocytosis 1+; Eosinophil % 0.7 %; Lymphocyte % 15.8 %; Nucleated Red Blood Cells % 0.2 %/100WBC (0.0-0.8); Polychromasia 1+
[2023-08-04 11:00] LABS: Immature Retic Fraction 0.61
[2023-08-04 11:01] LABS: RBC Retic Count 2.49 10^6/ul (4.06-5.63)
[2023-08-04 11:25] LABS: Corrected Retic Count 0.9 % (0.5-1.5); Hematocrit for Retic CNT 22.2 % (38-53)
[2023-08-04] MEDS: Tiotropium Brom/Olodaterol MDI (ACUTE) INH SCH (11:33)
[2023-08-04 13:29] LABS: % Iron Saturation 24 % (15-55); .Transferrin 153 mg/dL (203-362); Iron 52 ug/dL (50-212); Total Iron Binding Capacity 214 mcg/dL (250-450); Unsaturated Iron Binding 162 ug/dL
[2023-08-04 13:55] LABS: Folate > 20.00 ng/mL (5.90-24.80)
[2023-08-04 13:56] LABS: Vitamin B12 504 pg/mL (180-914)
[2023-08-04 14:59] LABS: Ferritin 1182.5 ng/mL (24-336)
[2023-08-04] MEDS: Cefepime 2 GM in Dextrose 2 GM/50 ML BAG IV SCH (18:10)
[2023-08-05] MEDS: Cefepime 2 GM in Dextrose 2 GM/50 ML BAG IV SCH ×2 (05:27→17:32)
[2023-08-05] MEDS ORDERED: Vancomycin Trough Check NOTE FOLLOW UP ONE (05:30)
[2023-08-05] MEDS: Multivitamins/Minerals TAB PO SCH (08:30)
[2023-08-05 08:46] LABS: Hematocrit 28.9 % (38-53); Mean Corpuscular Hemoglobin 29.9 pg (27-33); Mean Corpuscular Hgb Conc 34.6 g/dL (31-36); Mean Corpuscular Volume 86.6 fL (80-97); Mean Platelet Volume 8.6 fL (7.5-11.2); Platelet Count 165 10^3/uL (150-450); Red Blood Count 3.34 10^6/uL (4.06-5.63); Red Cell Distribution Width 18.5 % (12-17); White Blood Count 5.7 10^3/uL (3.6-10.2)
[2023-08-05 09:14] LABS: C Reactive Protein 145.16 mg/L (<8.01); Calcium 9.6 mg/dL (8.6-10.3); Creatinine, Serum 1.25 mg/dL (0.67-1.17); Magnesium 2.3 mg/dL (1.9-2.7); Potassium 4.2 mmol/L (3.5-5.0); eGFR CKD-EPI 61.9 (>60)
[2023-08-05 10:10] LABS: ABS Eosinophils 0.1 10^3/uL (0.0-0.5); ABS Lymphocytes 0.5 10^3/uL (1.0-4.8); ABS Monocytes 1.2 10^3/uL (0.0-1.1); ABS Neutrophils 3.9 10^3/uL (1.5-7.6); ABS Nucleated RBC 0.01 10^3/ul; Eosinophil % 0.9 %; Lymphocyte % 9.3 %; Nucleated Red Blood Cells % 0.1 %/100WBC (0.0-0.8)
[2023-08-05] MEDS: Tiotropium Brom/Olodaterol MDI (ACUTE) INH SCH (11:50)
[2023-08-05] MEDS ORDERED: Enoxaparin 40 MG/0.4 ML SYR SUBCUT SCH (16:00)
[2023-08-06] MEDS: Cefepime 2 GM in Dextrose 2 GM/50 ML BAG IV SCH (06:01)
[2023-08-06 06:41] LABS: Hematocrit 28.6 % (38-53); Hemoglobin 9.8 g/dL (13.2-16.3); Mean Corpuscular Hemoglobin 30.1 pg (27-33); Mean Corpuscular Hgb Conc 34.3 g/dL (31-36); Mean Corpuscular Volume 87.7 fL (80-97); Mean Platelet Volume 8.7 fL (7.5-11.2); Platelet Count 177 10^3/uL (150-450); Red Blood Count 3.26 10^6/uL (4.06-5.63); Red Cell Distribution Width 18.3 % (12-17); White Blood Count 6.5 10^3/uL (3.6-10.2)
[2023-08-06 07:00] LABS: Calcium 9.6 mg/dL (8.6-10.3); Creatinine, Serum 1.32 mg/dL (0.67-1.17); Magnesium 2.2 mg/dL (1.9-2.7); Potassium 4.4 mmol/L (3.5-5.0)
[2023-08-06] MEDS: Tiotropium Brom/Olodaterol MDI (ACUTE) INH SCH (07:46)
[2023-08-06 07:49] LABS: ABS Eosinophils 0.1 10^3/uL (0.0-0.5); ABS Lymphocytes 0.6 10^3/uL (1.0-4.8); ABS Monocytes 1.3 10^3/uL (0.0-1.1); ABS Neutrophils 4.4 10^3/uL (1.5-7.6); Anisocytosis 1+; Eosinophil % 1.7 %; Lymphocyte % 9.7 %; Nucleated Red Blood Cells % 0.1 %/100WBC (0.0-0.8); Polychromasia 1+
[2023-08-06] MEDS: Multivitamins/Minerals TAB PO SCH (09:54)
[2023-08-06 11:17] VITALS: BP 158/67
== END 2023-08-06 12:50 | disposition home or self-care (01) | DRG 871 ==
LOC: ED 10:54 → SUATTDRO 17:31 → EDHOLD 17:31 → MEDTELE 08-04 11:13
PROVIDERS: ADMIT Student in an Organized Health Care Education/Training Program; ATTEND Student in an Organized Health Care Education/Training Program

== ENCOUNTER 2023-12-20 06:14 | Inpatient (IN) ==
[2023-12-20] MEDS: NS 0.9% 1000 ml BAG 1,000 ML IV ONE (06:25)
[2023-12-20] MEDS ORDERED: Midazolam 5 mg/5 ml VIAL 1 mg/ml 5 ml VIAL (5 mg) ONE (06:28)
[2023-12-20] MEDS ORDERED: Norepinephrine 4 MG/250mL D5W 4,000 MCG/250 ML BAG IV ONE (06:34)
[2023-12-20] MEDS: Metoprolol Tartrate 5 mg VIAL 5 ml VIAL (1 mg/ml) IV ONE (06:44)
[2023-12-20 06:59] LABS: ABS Eosinophils 0.1 10^3/uL (0.0-0.5); ABS Monocytes 0.8 10^3/uL (0.0-1.1); ABS Neutrophils 6.4 10^3/uL (1.5-7.6); ABS Nucleated RBC 0.01 10^3/ul; Eosinophil % 0.7 %; Hematocrit 29.9 % (38-53); Lymphocyte % 12.1 %; Mean Corpuscular Hemoglobin 30.2 pg (27-33); Mean Corpuscular Hgb Conc 33.3 g/dL (31-36); Mean Corpuscular Volume 90.8 fL (80-97); Mean Platelet Volume 9.3 fL (7.5-11.2); Nucleated Red Blood Cells % 0.1 %/100WBC (0.0-0.8); Platelet Count 212 10^3/uL (150-450); Red Cell Distribution Width 16.2 % (12-17); White Blood Count 8.4 10^3/uL (3.6-10.2)
[2023-12-20 07:16] LABS: Albumin/Globulin Ratio 1.2 (1-3); Calcium 9.4 mg/dL (8.6-10.3); Creatinine, Serum 1.82 mg/dL (0.67-1.17); Globulin 2.6 g/dL (2-4); Magnesium 2.1 mg/dL (1.9-2.7); Potassium 3.6 mmol/L (3.5-5.0); Total Bilirubin 0.3 mg/dL (0.2-1.0); Total Protein 5.6 g/dL (6.4-8.9); eGFR CKD-EPI 39.5 (>60)
[2023-12-20 07:33] LABS: Activated Partial Thrombo Time 25.9 seconds (26.0-38.0); INR 1.04 (0.83-1.13)
[2023-12-20] MEDS: Iodixanol (CONTRAST) 320 MG/ML 100 ML SDV IV ONE (07:59)
[2023-12-20 09:02] LABS: High Sensitivity Troponin 1 Hr 1672 pg/mL (<20)
[2023-12-20] MEDS: Lactated Ringers 1000 ml BAG 1,000 ML IV ONE (09:25)
[2023-12-20] MEDS: Lactated Ringers 1000 ml BAG 1,000 ML IV SCH (09:26)
[2023-12-20] MEDS: Norepinephrine 4 MG/250mL D5W 4,000 MCG/250 ML BAG IV SCH (09:26)
[2023-12-20] MEDS: Heparin DRIP 25,000 UNITS BAG 25,000 UNITS/250 ML BAG IV SCH (09:35)
[2023-12-20] MEDS ORDERED: Heparin 5000 UNITS/ML 1 mL VIAL IV SCH (10:00)
[2023-12-20] MEDS: Acetaminophen IV 1 GM/100ML 1,000 MG/100 ML BAG IV ONE (11:03)
[2023-12-20] MEDS ORDERED: Albuterol HFA INHALER 8 gm MDI INH PRN (11:32)
[2023-12-20] MEDS ORDERED: Ondansetron ODT 4 mg TAB 4 MG TAB PO PRN (12:20)
[2023-12-20] MEDS: Lactated Ringers 1000 ml BAG 250 ML IV ONE (14:10)
[2023-12-20 16:09] LABS: Creatinine, Serum 1.43 mg/dL (0.67-1.17); eGFR CKD-EPI 52.7 (>60)
[2023-12-20] MEDS: Tiotropium Brom/Olodaterol MDI (ACUTE) INH SCH (16:37)
[2023-12-21 06:00] LABS: ABS Eosinophils 0.1 10^3/uL (0.0-0.5); ABS Lymphocytes 0.6 10^3/uL (1.0-4.8); ABS Monocytes 0.7 10^3/uL (0.0-1.1); ABS Neutrophils 4.9 10^3/uL (1.5-7.6); Hematocrit 25.4 % (38-53); Hemoglobin 8.7 g/dL (13.2-16.3); Lymphocyte % 9.6 %; Mean Corpuscular Hemoglobin 30.6 pg (27-33); Mean Corpuscular Hgb Conc 34.3 g/dL (31-36); Mean Corpuscular Volume 89.3 fL (80-97); Mean Platelet Volume 8.9 fL (7.5-11.2); Platelet Count 179 10^3/uL (150-450); Red Blood Count 2.85 10^6/uL (4.06-5.63); Red Cell Distribution Width 16.7 % (12-17); White Blood Count 6.3 10^3/uL (3.6-10.2)
[2023-12-21 06:53] LABS: Albumin 2.6 g/dL (3.2-5.2); Calcium 9.1 mg/dL (8.6-10.3); Creatinine, Serum 1.27 mg/dL (0.67-1.17); Globulin 2.6 g/dL (2-4); Potassium 3.5 mmol/L (3.5-5.0); Total Bilirubin 0.2 mg/dL (0.2-1.0); Total Protein 5.2 g/dL (6.4-8.9); eGFR CKD-EPI 60.8 (>60)
[2023-12-21] MEDS: Multivitamins/Minerals TAB PO SCH (09:55)
[2023-12-21] MEDS: KCL 20 MEQ/100 ML IVPREMIX 20 MEQ/100 ML BAG IV SCH (09:55)
[2023-12-21] MEDS ORDERED: Sulfur Hexaflouride MICROSPHR 25 MG VIAL ONE (10:52)
[2023-12-21] MEDS: Lidocaine 2% JELLY 6 ML Topical TOPICAL ONE (22:47)
[2023-12-22 05:44] LABS: ABS Eosinophils 0.1 10^3/uL (0.0-0.5); ABS Lymphocytes 0.6 10^3/uL (1.0-4.8); ABS Monocytes 0.7 10^3/uL (0.0-1.1); ABS Neutrophils 4.1 10^3/uL (1.5-7.6); Eosinophil % 0.9 %; Hemoglobin 8.5 g/dL (13.2-16.3); Lymphocyte % 11.3 %; Mean Corpuscular Hemoglobin 30.7 pg (27-33); Mean Corpuscular Volume 90.4 fL (80-97); Mean Platelet Volume 8.8 fL (7.5-11.2); Nucleated Red Blood Cells % 0.1 %/100WBC (0.0-0.8); Platelet Count 186 10^3/uL (150-450); Red Blood Count 2.76 10^6/uL (4.06-5.63); Red Cell Distribution Width 16.5 % (12-17); White Blood Count 5.4 10^3/uL (3.6-10.2)
[2023-12-22 06:06] LABS: Calcium 8.6 mg/dL (8.6-10.3); Creatinine, Serum 1.24 mg/dL (0.67-1.17); Potassium 3.8 mmol/L (3.5-5.0); eGFR CKD-EPI 62.5 (>60)
[2023-12-22] MEDS: NS 0.9% 1000 ml BAG 1,000 ML IV SCH (11:56)
[2023-12-22] MEDS: Diphenoxylat/Atrop 2.5-0.025mg TAB PO PRN (12:31)
[2023-12-22] MEDS: Cholestyramine Resin 4 GM POWDER PO SCH (12:31)
[2023-12-23 05:58] LABS: Hematocrit 25.8 % (38-53); Hemoglobin 8.8 g/dL (13.2-16.3); Mean Corpuscular Hemoglobin 30.6 pg (27-33); Mean Corpuscular Hgb Conc 34.1 g/dL (31-36); Mean Corpuscular Volume 89.8 fL (80-97); Mean Platelet Volume 8.6 fL (7.5-11.2); Platelet Count 201 10^3/uL (150-450); Red Blood Count 2.88 10^6/uL (4.06-5.63); Red Cell Distribution Width 16.5 % (12-17); White Blood Count 6.2 10^3/uL (3.6-10.2)
[2023-12-23 06:17] LABS: Calcium 8.8 mg/dL (8.6-10.3); Creatinine, Serum 1.1 mg/dL (0.67-1.17); Magnesium 1.9 mg/dL (1.9-2.7); Potassium 3.7 mmol/L (3.5-5.0); eGFR CKD-EPI 72.2 (>60)
[2023-12-23 06:38] LABS: ABS Lymphocytes 0.7 10^3/uL (1.0-4.8); ABS Monocytes 0.7 10^3/uL (0.0-1.1); ABS Neutrophils 4.8 10^3/uL (1.5-7.6); Eosinophil % 0.7 %
[2023-12-23] MEDS: PAIN RELIEVING RUB (MENTHOL/SALICYLATE) 1 APPLIC TUBE TOPICAL PRN (09:00)
[2023-12-24 06:43] LABS: ABS Lymphocytes 0.7 10^3/uL (1.0-4.8); ABS Monocytes 0.8 10^3/uL (0.0-1.1); ABS Neutrophils 5.2 10^3/uL (1.5-7.6); ABS Nucleated RBC 0.01 10^3/ul; Eosinophil % 0.7 %; Hematocrit 25.1 % (38-53); Hemoglobin 8.5 g/dL (13.2-16.3); Mean Corpuscular Hemoglobin 30.3 pg (27-33); Mean Corpuscular Hgb Conc 33.8 g/dL (31-36); Mean Corpuscular Volume 89.7 fL (80-97); Mean Platelet Volume 8.9 fL (7.5-11.2); Nucleated Red Blood Cells % 0.1 %/100WBC (0.0-0.8); Platelet Count 215 10^3/uL (150-450); Red Cell Distribution Width 16.6 % (12-17); White Blood Count 6.6 10^3/uL (3.6-10.2)
[2023-12-24 07:05] LABS: Creatinine, Serum 1.19 mg/dL (0.67-1.17); Potassium 3.8 mmol/L (3.5-5.0); eGFR CKD-EPI 65.7 (>60)
[2023-12-25 18:57] LABS: Folate 15.78 ng/mL (5.90-24.80)
[2023-12-25 20:01] LABS: Ferritin 1339.2 ng/mL (24-336)
[2023-12-26 06:21] LABS: Hematocrit 24.5 % (38-53); Hemoglobin 8.2 g/dL (13.2-16.3); Mean Corpuscular Hgb Conc 33.5 g/dL (31-36); Mean Corpuscular Volume 89.6 fL (80-97); Mean Platelet Volume 8.6 fL (7.5-11.2); Platelet Count 224 10^3/uL (150-450); Red Blood Count 2.73 10^6/uL (4.06-5.63); Red Cell Distribution Width 17.1 % (12-17); White Blood Count 9.1 10^3/uL (3.6-10.2)
[2023-12-26 06:32] LABS: Albumin 2.6 g/dL (3.2-5.2); Creatinine, Serum 1.12 mg/dL (0.67-1.17); Globulin 2.6 g/dL (2-4); Potassium 3.8 mmol/L (3.5-5.0); Total Protein 5.2 g/dL (6.4-8.9); eGFR CKD-EPI 70.7 (>60)
[2023-12-26 07:22] LABS: Total Bilirubin 0.2 mg/dL (0.2-1.0)
[2023-12-26 08:06] LABS: ABS Eosinophils 0.1 10^3/uL (0.0-0.5); ABS Lymphocytes 0.8 10^3/uL (1.0-4.8); ABS Neutrophils 7.2 10^3/uL (1.5-7.6); Lymphocyte % 8.5 %
[2023-12-26] MEDS: Diphenoxylat/Atrop 2.5-0.025mg TAB PO SCH (20:26)
[2023-12-27] MEDS: guaiFENesin 100 mg/5 ml LIQ unit dose cup PO PRN (16:19)
[2023-12-28 13:53] VITALS: BP 99/56
== END 2023-12-28 14:30 | DRG 281 ==
LOC: ED 06:14 → SUATTDRO 11:28 → EDHOLD 11:28 → MEDTELE 16:05
PROVIDERS: ADMIT Internal Medicine; ATTEND Internal Medicine

== ENCOUNTER 2023-12-26 12:57 | Inpatient (IN) ==
[2023-12-28] MEDS ORDERED: Magnesium Hydroxide LIQ 30 ML UDC PO PRN (15:54)
[2023-12-28] MEDS ORDERED: Senna TAB 8.6 mg TAB PO PRN (15:54)
[2023-12-28] MEDS ORDERED: Diphenoxylat/Atrop 2.5-0.025mg TAB PO PRN (16:27)
[2023-12-28] MEDS: Cholestyramine Resin 4 GM POWDER PO SCH (20:22)
[2023-12-28] MEDS: Diphenoxylat/Atrop 2.5-0.025mg TAB PO ONE (22:28)
[2023-12-29 06:59] LABS: Hematocrit 26.2 % (38-53); Hemoglobin 8.7 g/dL (13.2-16.3); Mean Corpuscular Hemoglobin 30.5 pg (27-33); Mean Corpuscular Hgb Conc 33.4 g/dL (31-36); Mean Corpuscular Volume 91.2 fL (80-97); Mean Platelet Volume 8.7 fL (7.5-11.2); Platelet Count 276 10^3/uL (150-450); Red Blood Count 2.87 10^6/uL (4.06-5.63); Red Cell Distribution Width 17.1 % (12-17); White Blood Count 8.6 10^3/uL (3.6-10.2)
[2023-12-29] MEDS: Tiotropium Brom/Olodaterol MDI (ACUTE) INH SCH (08:32)
[2023-12-29] MEDS: Diphenoxylat/Atrop 2.5-0.025mg TAB PO SCH (08:33)
[2023-12-29 08:40] LABS: ABS Lymphocytes 0.8 10^3/uL (1.0-4.8); ABS Monocytes 1.1 10^3/uL (0.0-1.1); ABS Neutrophils 6.6 10^3/uL (1.5-7.6); Eosinophil % 0.4 %; Lymphocyte % 9.7 %
[2023-12-29 09:31] LABS: Albumin 2.7 g/dL (3.2-5.2); Calcium 9.3 mg/dL (8.6-10.3); Creatinine, Serum 1.08 mg/dL (0.67-1.17); Globulin 2.6 g/dL (2-4); Potassium 4.4 mmol/L (3.5-5.0); Total Bilirubin 0.3 mg/dL (0.2-1.0); Total Protein 5.3 g/dL (6.4-8.9); eGFR CKD-EPI 73.8 (>60)
[2024-01-01] MEDS: oxyCODONE SR 10 mg TAB PO ONE (13:47)
[2024-01-01] MEDS: D5NS 0.9% 1000 ml BAG 1,000 ML IV SCH (19:49)
[2024-01-01] MEDS: oxyCODONE SR 10 mg TAB PO SCH (22:34)
[2024-01-03] MEDS: Lidocaine PATCH 5% PATCH TRANSDERM SCH (09:09)
[2024-01-04] MEDS: Albuterol HFA INHALER 8 gm MDI INH PRN (03:06)
[2024-01-04] MEDS: Albumin Human 5% 12.5 GM/250 ML BTL IV SCH (19:59)
[2024-01-04] MEDS: Lactated Ringers 1000 ml BAG 500 ML IV ONE (23:52)
[2024-01-05] MEDS: Albumin Human 25% 25 GM/100 ML BTL IV ONE (00:27)
[2024-01-05 04:11] LABS: ABS Lymphocytes 0.3 10^3/uL (1.0-4.8); ABS Monocytes 0.3 10^3/uL (0.0-1.1); ABS Neutrophils 6.2 10^3/uL (1.5-7.6); ABS Nucleated RBC 0.01 10^3/ul; Hematocrit 21.5 % (38-53); Hemoglobin 7.1 g/dL (13.2-16.3); Lymphocyte % 4.9 %; Mean Corpuscular Hemoglobin 30.4 pg (27-33); Mean Corpuscular Hgb Conc 33.2 g/dL (31-36); Mean Corpuscular Volume 91.5 fL (80-97); Mean Platelet Volume 8.8 fL (7.5-11.2); Nucleated Red Blood Cells % 0.1 %/100WBC (0.0-0.8); Platelet Count 196 10^3/uL (150-450); Red Blood Count 2.35 10^6/uL (4.06-5.63); Red Cell Distribution Width 18.4 % (12-17); White Blood Count 6.8 10^3/uL (3.6-10.2)
[2024-01-05 04:22] LABS: Albumin 3.2 g/dL (3.2-5.2); Albumin/Globulin Ratio 1.9 (1-3); C Reactive Protein 112.34 mg/L (<8.01); Calcium 8.6 mg/dL (8.6-10.3); Creatinine, Serum 1.21 mg/dL (0.67-1.17); Globulin 1.7 g/dL (2-4); Potassium 3.7 mmol/L (3.5-5.0); Total Bilirubin 0.3 mg/dL (0.2-1.0); Total Protein 4.9 g/dL (6.4-8.9)
[2024-01-07 06:04] LABS: ABS Lymphocytes 0.6 10^3/uL (1.0-4.8); ABS Monocytes 0.2 10^3/uL (0.0-1.1); ABS Nucleated RBC 0.01 10^3/ul; Hematocrit 30.1 % (38-53); Hemoglobin 10.3 g/dL (13.2-16.3); Lymphocyte % 11.7 %; Mean Corpuscular Hemoglobin 29.9 pg (27-33); Mean Corpuscular Hgb Conc 34.1 g/dL (31-36); Mean Corpuscular Volume 87.7 fL (80-97); Mean Platelet Volume 8.7 fL (7.5-11.2); Nucleated Red Blood Cells % 0.2 %/100WBC (0.0-0.8); Platelet Count 213 10^3/uL (150-450); Red Blood Count 3.43 10^6/uL (4.06-5.63); Red Cell Distribution Width 20.4 % (12-17); White Blood Count 4.9 10^3/uL (3.6-10.2)
[2024-01-07 06:15] LABS: Calcium 9.4 mg/dL (8.6-10.3); Creatinine, Serum 1.36 mg/dL (0.67-1.17); Potassium 3.2 mmol/L (3.5-5.0); eGFR CKD-EPI 55.6 (>60)
[2024-01-07] MEDS: Potassium Chlor 20 meq TAB.ER PO SCH (09:44)
[2024-01-07] MEDS: D5W 1/2 NS 40 Meq KCL 1000 ml 1,000 ML IV SCH (23:30)
[2024-01-08] MEDS: Remdesivir 100 mg Vial 200 MG in NS 0.9% 250 ml 210 ML IV ONE (11:53)
[2024-01-08 12:57] LABS: Albumin 2.6 g/dL (3.2-5.2); Albumin/Globulin Ratio 1.2 (1-3); Creatinine, Serum 1.69 mg/dL (0.67-1.17); Globulin 2.2 g/dL (2-4); Total Bilirubin 0.2 mg/dL (0.2-1.0); Total Protein 4.8 g/dL (6.4-8.9); eGFR CKD-EPI 42.9 (>60)
[2024-01-08 14:00] LABS: INR 2.54 (0.83-1.13)
[2024-01-08] MEDS: Lactated Ringers 1000 ml BAG 1,000 ML IV SCH (16:30)
[2024-01-08] MEDS ORDERED: Lorazepam PYXIS KEY PRN (16:38)
[2024-01-08] MEDS ORDERED: diazePAM INJ CARPUJECT 5 MG/ML SYRINGE IV PRN (17:18)
[2024-01-08] MEDS: Morphine 2 MG/ML SYRINGE IV PRN (17:40)
[2024-01-08] MEDS ORDERED: Diphenoxylat/Atrop 2.5-0.025mg TAB PO PRN (23:06)
[2024-01-09 07:18] VITALS: BP 89/56
[2024-01-09] MEDS ORDERED: Remdesivir 100 mg Vial 100 MG in NS 0.9% 250 ml 230 ML IV SCH (09:00)
== END 2024-01-09 08:55 | disposition expired ==
LOC: PMRU 12-28 14:30 → UNDODISIN 01-09 08:55
PROVIDERS: ADMIT Physical Medicine & Rehabilitation; ATTEND Physical Medicine & Rehabilitation